=== PATIENT | female | born 1955 | race Caucasian/White ===

== ENCOUNTER 2017-09-12 20:31 | Inpatient (IN) | payer SELFPAY ==
[2017-09-12] MEDS ORDERED: NS 0.9% 1000 ML*IV.FLUID IV ONE (21:29)
[2017-09-12] MEDS ORDERED: methylPREDNISolone 125 MG* 2 ML VIAL IV ONE (21:39)
[2017-09-12] MEDS ORDERED: diPHENhydraMINE IV* 50 MG/ML 1 ml VIAL (BENADRYL) IV ONE (21:39)
[2017-09-12] MEDS ORDERED: Acetaminophen TAB* 325 MG PO ONE (21:39)
--- NOTE | 2017-09-12 21:49 | RAD ---
INDICATION: Shortness of breath. COMPARISON: There is an is made with a prior study from May 11, 2003. TECHNIQUE: A portable view of the chest was obtained. FINDINGS: Cardiac and mediastinal contours appear to be within normal limits. The lungs are clear. No pleural effusion is seen. IMPRESSION: NO EVIDENCE FOR ACUTE DISEASE.
[2017-09-12] MEDS ORDERED: Vancomycin(*) 1,000 MG in NS 0.9% 250 ML* 250 ML IVPB ONE (22:13)
[2017-09-12] MEDS ORDERED: Piperacillin/Tazobac ADVAN(*) 3.375 GM in NS 0.9% 100 ML* 100 ML IVPB ONE (22:13)
[2017-09-12 22:30] LABS: INR 1.07 (0.77-1.02)
[2017-09-12 23:58] LABS: ABS Basophils 0.1 10^3/ul (0-0.2); ABS Eosinophils 0.2 10^3/ul (0-0.6); ABS Monocytes 0.5 10^3/ul (0-0.8); ABS Nucleated RBC 0 10^3/ul; Eosinophil % 1.9 % (0-6); Hematocrit 33 % (35-47); Hemoglobin 11.4 g/dl (12.0-16.0); Lymphocyte % 11.4 % (25-47); Mean Corpuscular HGB Conc 34 g/dl (31-36); Mean Corpuscular Hemoglobin 40 pg (27-31); Mean Corpuscular Volume 115 fL (80-97); Mean Platelet Volume 10 um3 (7.4-10.4); Nucleated Red Blood Cells % 0.1; Platelet Count 163 10^3/ul (150-450); Red Blood Count 2.88 10^6/ul (4.0-5.4); Red Cell Distribution Width 13 % (10.5-15); White Blood Count 8.8 10^3/ul (3.5-10.8)
[2017-09-13] MEDS ORDERED: HYDROmorphone INJ* 2 MG/ML CARPUJECT SYRINGE IV SLOW PU ONE (00:04)
[2017-09-13] MEDS ORDERED: Ondansetron INJ* 2 MG/ML VIAL IV ONE (00:05)
--- NOTE | 2017-09-13 00:09 | ED ---
Shadi Mejía Abhishek, scribed for Demarcus Hankins MD on 09/12/17 at 2349 . Skin Complaint - HPI Summary HPI Summary: The pt is a 62 y/o female with a chief complaint of a rash since two weeks ago. The rash is described to be pruritic and erythematous as well as painful. Pt arrived to the [facility] via ambulance. The location of the rash is diffuse in mulitple areas in the body and the pt has not seen a doctor in those 2 weeks. Pt reports of SOB, intermittent fevers, chills, diaphoresis, weakness and hair loss. Pertinent PMHx includes Psoriasis. The patient rates the pain 7/10 in severity. Symptoms aggravated by nothing. Symptoms alleviated by nothing. Pt denies sores in the mouth. - History of Current Complaint Chief Complaint: EDShortnessOfBreath Time Seen by Provider: 09/12/17 21:01 Stated Complaint: SOB/BACK PAIN Hx Obtained From: Patient Onset/Duration: Started Weeks Ago - 2 weeks ago, Still Present Timing: Constant Onset Severity: Moderate Current Severity: Moderate Pain Intensity: 7 Pain Scale Used: 0-10 Numeric Skin Location: Diffuse Aggravating Symptom(s): Nothing Alleviating Symptom(s): Nothing Associated Signs & Symptoms: Diaphoresis, Weakness, Fever, Chills, Rash - pruritic, redness, and painful - Allergy/Home Medications Allergies/Adverse Reactions: Allergies Allergy/AdvReac Type Severity Reaction Status Date / Time No Known Allergies Allergy Verified 06/19/16 12:55 PMH/Surg Hx/FS Hx/Imm Hx Endocrine/Hematology History: Denies: Hx Diabetes, Hx Thyroid Disease Cardiovascular History: Denies: Hx Hypertension Respiratory History: Denies: Hx Asthma, Hx Chronic Obstructive Pulmonary Disease (COPD) GI History: Denies: Hx Ulcer Infectious Disease History: No Infectious Disease History: Denies: Hx Hepatitis, Hx Human Immunodeficiency Virus (HIV), Traveled Outside the [place] in Last 30 Days - Family History Known Family History: Positive: Cardiac Disease - [place] - father, Other - [place] - mother - Social History Alcohol Use: Daily Alcohol Amount: wine/beer Substance Use Type: Reports: None Smoking Status (MU): Former Smoker Review of Systems Positive: Fever, Chills, Skin Diaphoresis Eyes: Negative ENT: Negative Cardiovascular: Negative Positive: Shortness Of Breath Gastrointestinal: Negative Genitourinary: Negative Musculoskeletal: Negative Skin: Other - Negative sores in the mouth Positive: Rash - pruritic, erythematous, and painful, Other - Hair loss Neurological: Negative Psychological: Normal All Other Systems Reviewed And Are Negative: Yes Physical Exam - Summary Physical Exam Summary: VITAL SIGNS: Reviewed. GENERAL: ~Patient is a well-developed and nourished (FEMALE) who is lying comfortable in the stretcher. Patient is not in any acute respiratory distress. HEAD AND FACE: No signs of trauma. No ecchymosis, hematomas or skull depressions. No sinus tenderness. EYES: PERRLA, EOMI x 2, No injected conjunctiva, no nystagmus. EARS: Hearing grossly intact. Ear canals and tympanic membranes are within normal limits. MOUTH: Oropharynx within normal limits. NECK: Supple, trachea is midline, no adenopathy, no JVD, no carotid bruit, no c- spine tenderness, neck with full ROM. CHEST: Symmetric, n SKIN: Pt has diffuse intense macular rash all over her body from the neck to the ankles Back and front Which his mildly tender and warm LUNGS: Clear to auscultation bilaterally. No wheezing or crackles. CVS: Regular rate and rhythm, S1 and S2 present, no murmurs or gallops appreciated. ABDOMEN: Soft, non-tender. No signs of distention. No rebound no guarding, and no masses palpated. Bowel sounds are normal. EXTREMITIES: FROM in all major joints, no edema, no cyanosis or clubbing. NEURO: Alert and oriented x 3. No acute neurological deficits. Speech is normal and follows commands. Triage Information Reviewed: Yes Vital Signs On Initial Exam: Initial Vitals Temp Pulse Resp BP Pulse Ox 99.9 F 96 20 157/81 99 09/12/17 20:45 09/12/17 20:45 09/12/17 20:45 09/12/17 20:45 09/12/17 20:45 Vital Signs Reviewed: Yes Diagnostics - Vital Signs Vital Signs Temp Pulse Resp BP Pulse Ox 09/12/17 22:20 98 09/12/17 20:45 99.9 F 96 20 157/81 99 - Laboratory Lab Results: Lab Results 09/12/17 09/12/17 09/12/17 Range/Units 22:00 22:00 22:00 INR (Anticoag Therapy) 1.07 H (0.77-1.02) APTT 33.6 (26.0-36.3) seconds Sodium 132 L (133-145) mmol/L Potassium 3.4 L (3.5-5.0) mmol/L Chloride 99 L (101-111) mmol/L Carbon Dioxide 20 L (22-32) mmol/L Anion Gap 13 H (2-11) mmol/L BUN 4 L (6-24) mg/dL Creatinine 0.39 L (0.51-0.95) mg/dL Est GFR ( Amer) 213.5 (>60) Est GFR (Non-Af Amer) 166.0 (>60) BUN/Creatinine Ratio 10.3 (8-20) Glucose 90 (70-100) mg/dL Lactic Acid 4.0 H* (0.5-2.0) mmol/L Calcium 8.4 L (8.6-10.3) mg/dL Total Bilirubin 2.00 H (0.2-1.0) mg/dL AST 58 H (13-39) U/L ALT 26 (7-52) U/L Alkaline Phosphatase 92 (34-104) U/L Troponin I 0.01 (<0.04) ng/mL C-Reactive Protein 76.78 H (< 5.00) mg/L Total Protein 6.1 L (6.4-8.9) g/dL Albumin 3.2 (3.2-5.2) g/dL Globulin 2.9 (2-4) g/dL Albumin/Globulin Ratio 1.1 (1-3) Influenza A (Rapid) (Negative) Influenza B (Rapid) (Negative) 09/12/17 Range/Units 22:06 INR (Anticoag Therapy) (0.77-1.02) APTT (26.0-36.3) seconds Sodium (133-145) mmol/L Potassium (3.5-5.0) mmol/L Chloride (101-111) mmol/L Carbon Dioxide (22-32) mmol/L Anion Gap (2-11) mmol/L BUN (6-24) mg/dL Creatinine (0.51-0.95) mg/dL Est GFR ( Amer) (>60) Est GFR (Non-Af Amer) (>60) BUN/Creatinine Ratio (8-20) Glucose (70-100) mg/dL Lactic Acid (0.5-2.0) mmol/L Calcium (8.6-10.3) mg/dL Total Bilirubin (0.2-1.0) mg/dL AST (13-39) U/L ALT (7-52) U/L Alkaline Phosphatase (34-104) U/L Troponin I (<0.04) ng/mL C-Reactive Protein (< 5.00) mg/L Total Protein (6.4-8.9) g/dL Albumin (3.2-5.2) g/dL Globulin (2-4) g/dL Albumin/Globulin Ratio (1-3) Influenza A (Rapid) Negative (Negative) Influenza B (Rapid) Negative (Negative) Result Diagrams: 09/12/17 23:45 09/12/17 22:00 Lab Statement: Any lab studies that have been ordered have been reviewed, and results considered in the medical decision making process. - Radiology Chest X-ray Radiology Interpretation Completed By: Radiologist - CXR reveals, per radiologist, NO EVIDENCE FOR ACUTE DISEASE. ED physician has reviewed this radiology report and agrees. Course/Dx - Course Course Of Treatment: The pt is a 62 y/o female with a c/o of SOB and a rash since two weeks. The rash is diffuse all over the body from head to toe and is descirbed to be pruritic, eryhtematous, and painful. We were unable to add a manager fitness because of skin sensitivity. Pt also denies of sores in her mouth. [facility] be admitted to the [facility]. We discussed pt care with Dr. Cerna. The dx will be severe psoriasis. We also consulted Dr. Mckeon about the pt's skin symptoms and she will see the pt tomorrow. - Diagnoses Provider Diagnoses: Psoriasis - Physician Notifications Discussed Care Of Patient With: Brennan Cerna - We discussed pt care Time Discussed With Above Provider: 00:05 Instructed by Provider To: Admit As Inpatient Discharge - Discharge Plan Condition: Stable Disposition: ADMITTED TO [facility] Referrals: No Primary Care Phys,NOPCP [Primary Care Provider] - The documentation as recorded by the Shadi jenkins Abhishek accurately reflects the service I personally performed and the decisions made by me, Demarcus Hankins, MD.
[2017-09-13] MEDS ORDERED: Albuterol 2.5 MG/3 ML NEB.SOL* (0.083%) INH PRN (01:56)
[2017-09-13] MEDS ORDERED: Acetaminophen TAB* 325 MG PO PRN (01:56)
[2017-09-13] MEDS ORDERED: traMADol TAB* 50 MG PO PRN (01:56)
[2017-09-13] MEDS ORDERED: Ondansetron INJ* 2 MG/ML VIAL IV PRN (01:56)
[2017-09-13] MEDS ORDERED: NS 0.9% 1000 ML* 1,000 ML IV SCH (02:00)
--- NOTE | 2017-09-13 04:31 | HP ---
H&P (Free Text) History and Physical: PCP: none Dermatology: Akilah Mckeon MD Date/Time: 09/13/2017 0045 CC: rash HPI: Mrs Dupont is a 62YO female Hx psoriasis who began having a flare of psoriasis 2 weeks ago which has spread to encompass nearly 100% of her body surface sparing the face, palms, & soles. This has been associated with F/C, sweats, N/V without black/bloody content, diarrhea which has occasionally been black, but no chest pain, SOB palpitations, cough, congestion, sore throat, earache, or other issues. She has not been ill recently nor has she had any change in medications. ED was able to contact her complex director, Akilah Mckeon MD who agreed to evaluate her in the AM. Mrs Dupont reports using topical triamcinolone without relief. 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 [employer]; full code status FamHx: Mother: passed in her 70s 2nd traumatic ICH with breast & ovarian CA; Father: passed at 80 2nd CAD/RI ROS: as above, otherwise reviewed and all were negative vitals: Vital Signs Temp 36.4 C 09/13/17 01:55 Pulse 103 09/13/17 01:56 Resp 20 09/13/17 01:55 BP 133/69 09/13/17 01:56 Pulse Ox 97 09/13/17 01:56 Intake & Output 09/12/17 09/12/17 09/13/17 11:59 23:59 11:59 Intake Total 100 Balance 100 Weight 56.699 kg 56.699 kg Intake: IV Fluids 100 Constitutional: NAD, normally developed, well-nourished white female HEENM: atraumatic; sclera/conjunctiva: anicteric/clear; hearing: clinically intact; oropharynx: clear, mucosa moist Neck: soft tissue: no nuchal rigidity; thyroid: normal Pulmonary: clear to auscultation bilaterally, good aeration, no accessory muscle use CV: RR/RR, normal S1S2, no carotid bruit, no jugular venous distention, 2+ B DP/ PT, no edema Abdominal: soft, non-distended, non-tender, no rebound/guarding/rigidity, normoactive bowel sounds, no hepatosplenomegaly or masses, no costovertebral angle tenderness Musculoskeletal: general: grossly, no overt deformities noted Integumental: generalized bright erythematous eruption sparing the face, palms, & soles punctuated by islands of hyperkeratosis; no oral/mucosal lesions Genitourinary: exam deferred to ED MD who reports no mucosal lesions Psychiatric orientation: AA&O to PPS affect: calm mood: cooperative eye contact: fair content: reliable responses: timely insight: good Testing: Lab Results 09/12/17 09/12/17 09/12/17 Range/Units 22:00 22:00 22:00 WBC (3.5-10.8) 10^3/ul RBC (4.0-5.4) 10^6/ul Hgb (12.0-16.0) g/dl Hct (35-47) % MCV (80-97) fL MCH (27-31) pg MCHC (31-36) g/dl RDW (10.5-15) % Plt Count (150-450) 10^3/ul MPV (7.4-10.4) um3 Neut % (Auto) (38-83) % Lymph % (Auto) (25-47) % [place] % (Auto) (0-7) % Eos % (Auto) (0-6) % Baso % (Auto) (0-2) % Absolute Neuts (auto) (1.5-7.7) 10^3/ul Absolute Lymphs (auto) (1.0-4.8) 10^3/ul Absolute Monos (auto) (0-0.8) 10^3/ul Absolute Eos (auto) (0-0.6) 10^3/ul Absolute Basos (auto) (0-0.2) 10^3/ul Absolute Nucleated RBC 10^3/ul Nucleated RBC % ESR (0-30) mm/Hr INR (Anticoag Therapy) 1.07 H (0.77-1.02) APTT 33.6 (26.0-36.3) seconds Sodium 132 L (133-145) mmol/L Potassium 3.4 L (3.5-5.0) mmol/L Chloride 99 L (101-111) mmol/L Carbon Dioxide 20 L (22-32) mmol/L Anion Gap 13 H (2-11) mmol/L BUN 4 L (6-24) mg/dL Creatinine 0.39 L (0.51-0.95) mg/dL Est GFR ( Amer) 213.5 (>60) Est GFR (Non-Af Amer) 166.0 (>60) BUN/Creatinine Ratio 10.3 (8-20) Glucose 90 (70-100) mg/dL Lactic Acid 4.0 H* (0.5-2.0) mmol/L Calcium 8.4 L (8.6-10.3) mg/dL Total Bilirubin 2.00 H (0.2-1.0) mg/dL AST 58 H (13-39) U/L ALT 26 (7-52) U/L Alkaline Phosphatase 92 (34-104) U/L Troponin I 0.01 (<0.04) ng/mL C-Reactive Protein 76.78 H (< 5.00) mg/L Total Protein 6.1 L (6.4-8.9) g/dL Albumin 3.2 (3.2-5.2) g/dL Globulin 2.9 (2-4) g/dL Albumin/Globulin Ratio 1.1 (1-3) Influenza A (Rapid) (Negative) Influenza B (Rapid) (Negative) 09/12/17 09/12/17 09/13/17 Range/Units 22:06 23:45 01:15 WBC 8.8 (3.5-10.8) 10^3/ul RBC 2.88 L (4.0-5.4) 10^6/ul Hgb 11.4 L (12.0-16.0) g/dl Hct 33 L (35-47) % MCV 115 H (80-97) fL MCH 40 H (27-31) pg MCHC 34 (31-36) g/dl RDW 13 (10.5-15) % Plt Count 163 (150-450) 10^3/ul MPV 10 (7.4-10.4) um3 Neut % (Auto) 79.8 (38-83) % Lymph % (Auto) 11.4 L (25-47) % [place] % (Auto) 6.2 (0-7) % Eos % (Auto) 1.9 (0-6) % Baso % (Auto) 0.7 (0-2) % Absolute Neuts (auto) 7.0 (1.5-7.7) 10^3/ul Absolute Lymphs (auto) 1.0 (1.0-4.8) 10^3/ul Absolute Monos (auto) 0.5 (0-0.8) 10^3/ul Absolute Eos (auto) 0.2 (0-0.6) 10^3/ul Absolute Basos (auto) 0.1 (0-0.2) 10^3/ul Absolute Nucleated RBC 0 10^3/ul Nucleated RBC % 0.1 ESR 32 H (0-30) mm/Hr INR (Anticoag Therapy) (0.77-1.02) APTT (26.0-36.3) seconds Sodium (133-145) mmol/L Potassium (3.5-5.0) mmol/L Chloride (101-111) mmol/L Carbon Dioxide (22-32) mmol/L Anion Gap (2-11) mmol/L BUN (6-24) mg/dL Creatinine (0.51-0.95) mg/dL Est GFR ( Amer) (>60) Est GFR (Non-Af Amer) (>60) BUN/Creatinine Ratio (8-20) Glucose (70-100) mg/dL Lactic Acid 2.8 H* (0.5-2.0) mmol/L Calcium (8.6-10.3) mg/dL Total Bilirubin (0.2-1.0) mg/dL AST (13-39) U/L ALT (7-52) U/L Alkaline Phosphatase (34-104) U/L Troponin I (<0.04) ng/mL C-Reactive Protein (< 5.00) mg/L Total Protein (6.4-8.9) g/dL Albumin (3.2-5.2) g/dL Globulin (2-4) g/dL Albumin/Globulin Ratio (1-3) Influenza A (Rapid) Negative (Negative) Influenza B (Rapid) Negative (Negative) CXR, personally reviewed: IMPRESSION: NO EVIDENCE FOR ACUTE DISEASE. Impression: 62F presenting with a severe flare of psoriasis ? etiology DIAGNOSIS & PLAN Primary severe flare of psoriasis ? etiology : recheck labs in AM : Akilah Mckeon MD dermatology consulted by ED, agreed to evaluate in AM : given vancomycin & piperacillin/tazobactam in ED, hold further ABX at this time : given methylprednisolone 125mg IV in ED, defer further steroids to dermatology : defer initiation of methotrexate, cyclosporin, apremilast, or biologic agent to dermatology upon confirmation of DX : trend WBC & temperature curves : check HIV status : supportive care recent black stools : check fecal occult blood Admission Rational: inpatient for severe dermatologic eruption not anticipated to be adequately evaluated/improved w/i 48h to allow for discharge DVTp: SCDs, no anticoagulation give HX recent black stools Code Status: full HCP:
[2017-09-13 05:38] LABS: Urine Appearance Cloudy; Urine Blood 1+ (Negative); Urine Color Amber; Urine Ketones Trace (Negative); Urine Protein 1+(30 mg/dL) (Negative); Urine Specific Gravity 1.023 (1.010-1.030); Urine Urobilinogen Negative (Negative)
[2017-09-13 06:13] LABS: ABS Basophils 0 10^3/ul (0-0.2); ABS Eosinophils 0 10^3/ul (0-0.6); ABS Lymphocytes 0.4 10^3/ul (1.0-4.8); ABS Monocytes 0.1 10^3/ul (0-0.8); ABS Neutrophils 6.3 10^3/ul (1.5-7.7); ABS Nucleated RBC 0 10^3/ul; Eosinophil % 0 % (0-6); Hematocrit 35 % (35-47); Hemoglobin 12.1 g/dl (12.0-16.0); Lymphocyte % 5.2 % (25-47); Mean Corpuscular HGB Conc 35 g/dl (31-36); Mean Corpuscular Hemoglobin 40 pg (27-31); Mean Corpuscular Volume 115 fL (80-97); Mean Platelet Volume 10 um3 (7.4-10.4); Nucleated Red Blood Cells % 0; Platelet Count 124 10^3/ul (150-450); Red Blood Count 3.05 10^6/ul (4.0-5.4); Red Cell Distribution Width 13 % (10.5-15); White Blood Count 6.7 10^3/ul (3.5-10.8)
[2017-09-13] MEDS: Omeprazole CAP* 20 MG PO SCH (06:25)
[2017-09-13 06:26] LABS: EGFR Non-African American 144.4 (>60)
[2017-09-13] MEDS ORDERED: Pneumococcal *Vac Polyvalent 0.5 ML VIAL IM ONE (09:00)
[2017-09-13] MEDS ORDERED: Influenza VAC *QUAD* 2017-18* 0.5 ML SYRINGE IM ONE (09:00)
[2017-09-13] MEDS ORDERED: cefTRIAXone(*) 1 GM in NS 0.9% 50 ML* 50 ML IVPB SCH (11:00)
[2017-09-13] MEDS: cefTRIAXone 1000 MG SYRINGE IVPB Q24H IVPB SCH ×2 (11:39)
--- NOTE | 2017-09-13 13:01 | ECHO ---
Patient: JUDD HE [facility] Rec#: [id number] : 1955 Date: 09/13/2017 Age: 62y Height: 157.5 cm / 62.0 in Weight: 61.2 kg / 134.9 lbs Sex: F BSA: 1.6 Room#: [facility] Admit Date#: 09/13/2017 Type: Inpatient Referring: Lino Henry Reading: Luis Alfredo Draper MD Sanitation Engineer: Beverley Duncan RN RDCS Transthoracic Echocardiogram Indication: Shortness of breath BP: 139/70 HR: 95 Rhythm: NSR Findings History: Former smoker, psoriasis Technical Comments: The study quality is fair. The study is technically limited due to the patient's smoking history. Completed at 1245. Left Ventricle: The left ventricular chamber size is normal. There is no left ventricular hypertrophy. Global left ventricular wall motion and contractility are within normal limits. The left ventricle appears hyperdynamic.Visually estimated LVEF is greater than 70 %. The assessment of diastolic function is non-diagnostic. Left Atrium: The left atrial chamber size is normal. Right Ventricle: The right ventricular chamber size and systolic function are within normal limits. Right Atrium: The right atrial cavity size is normal. Aortic Valve: The aortic valve is trileaflet. The aortic valve leaflets are mildly thickened. There is no evidence of aortic regurgitation. There is no evidence of aortic stenosis. Mitral Valve: The mitral valve leaflets are mildly thickened. There is a trace of mitral regurgitation. There is no evidence of mitral stenosis. Tricuspid Valve: The tricuspid valve leaflets are normal. There is trace tricuspid regurgitation. There is evidence of borderline pulmonary hypertension. There is no tricuspid stenosis. Pulmonic Valve: The pulmonic valve appears normal. There is a trace pulmonic regurgitation. There is no pulmonic stenosis. Pericardium: A trivial pericardial effusion is visualized. A pericardial fat pad is visualized. Aorta: There is mild dilatation of the ascending aorta. There is no dilatation of the aortic arch. There is no dilation of the aortic root. Pulmonary Artery: The main pulmonary artery appears normal. Venous: The venous system is not well visualized. The inferior vena cava is not visualized. Conclusions Global left ventricular wall motion and contractility are within normal limits. The left ventricle appears hyperdynamic. Visually estimated LVEF is greater than 70 %. No significant valvular disease: There is a trace of mitral regurgitation. There is trace tricuspid regurgitation. There is a trace pulmonic regurgitation. There is mild dilatation of the ascending aorta. No reports of prior studies are offered for comparison. Measurements Name Value Normal Range RVDdMajor (2D) 3.2 cm (2.2 - 4.4) RAd ISD 4CH 4.9 cm (3.4 - 4.9) RA (A4C)W 3.4 cm (2.9 - 4.6) IVSd (2D) 0.9 cm (0.6 - 1) LVPWd (2D) 1 cm (0.6 - 1) LVIDd (2D) 4.1 cm (3.6 - 5.4) LVIDs (2D) 2.4 cm - LV FS (2D) 41 % (25 - 45) Aortic Annulus 2.2 cm (1.4 - 2.6) Ao root diameter (2D) 3.1 cm (2.1 - 3.5) Ascending Ao 3.6 cm (2.1 - 3.4) Aortic arch 2.4 cm (1.8 - 3.4) LA dimension (AP) 2D 3.5 cm (2.3 - 3.8) LAd ISD 4CH 5.3 cm (2.9 - 5.3) LA ISD 4CH W 3.8 cm (2.5 - 4.5) Name Value Normal Range LA ESV SP 4CH (A/L) 46 ml - LA ESV SP 2CH (A/L) 46 ml - LA ESV BP (A/L) 48 ml - LA ESV BP (A/L) index 29.8 ml/m2 - LA ESV SP 4CH (MOD) 43 ml - LA ESV SP 2CH (MOD) 43 ml - Name Value Normal Range MV E-wave Vmax 1.1 m/sec - MV deceleration time 219 msec - MV A-wave Vmax 1.2 m/sec - MV E:A ratio 0.9 ratio - LV septal e' Vmax 0.07 m/sec - LV lateral e' Vmax 0.07 m/sec - LV E:e' septal ratio 15.7 ratio - LV E:e' lateral ratio 15.7 ratio - Name Value Normal Range AV Vmax 1.7 m/sec - AV VTI 37.6 cm - AV peak gradient 11 mmHg - AV mean gradient 6.4 mmHg - LVOT Vmax 1.7 m/sec - LVOT VTI 34.9 cm - LVOT peak gradient 11 mmHg - LVOT mean gradient 6.4 mmHg - JOHN Vmax 0.72 m/sec - Name Value Normal Range TR Vmax 2.6 m/sec - TR peak gradient 27 mmHg - RAP 8 mmHg - RVSP 35 mmHg - Name Value Normal Range PV Vmax 1.3 m/sec -
--- NOTE | 2017-09-13 14:39 | PN ---
Hospitalist Progress Note Date of Service: 09/13/17 Pt seen and examined. Has been subjectively SOB with new swelling in legs and bloating in stomach. scleral icterus. erythodermic psoriasis. Evidence of UTI started on cftx (s/p vanc zosyn in ED. Dermatology to see soon. BNP elevated to 375. ECHO ordered, EF 70% hyperdynamic. Hx of hepatic steatosis, drinks 3 wine nightly. TBili 2.0. AST 58. Liver US ordered. LFTs again in AM.
--- NOTE | 2017-09-13 18:07 | RAD ---
INDICATION: Hepatic steatosis, assess for ascites. COMPARISON: Comparison is made with a prior study from June 19, 2016. TECHNIQUE: Multiple real-time images of the right upper quadrant were obtained. FINDINGS: No gallstones are seen. There is mild gallbladder wall thickening measuring 3 mm likely secondary to adjacent ascites. No intra or extrahepatic ductal distention is present. The common bile duct measured 0.2 cm in diameter. The liver is normal in size and increased in echogenicity without focal abnormality. The pancreas is partially obscured by overlying bowel gas. The right kidney is normal in size without evidence for hydronephrosis. There is a moderate amount of ascites seen in all 4 quadrants. IMPRESSION: 1. MODERATE AMOUNT OF ASCITES. 2. THE LIVER IS INCREASED IN ECHOGENICITY CONSISTENT WITH DIFFUSE HEPATOCELLULAR DISEASE MOST LIKELY HEPATIC STEATOSIS. THIS COULD BE FURTHER EVALUATED WITH A NONCONTRAST CT IF CLINICALLY NEEDED.
[2017-09-13] MEDS: Triamcinolone 0.025% OINT * 15 GM TUBE TOPICAL SCH (19:27)
[2017-09-13] MEDS: Spironolactone TAB* 25 MG PO SCH (19:30)
[2017-09-13] MEDS: Furosemide TAB* 20 MG PO SCH (19:30)
[2017-09-13] MEDS: CMCS: Melatonin (NF) 3 MG TAB PO PRN (23:41)
[2017-09-14] MEDS ORDERED: Heparin VIAL(*) 5000 UNITS/ML VIAL (FIVE THOUSAND) SUBCUT SCH (06:00)
[2017-09-14] MEDS: Omeprazole CAP* 20 MG PO SCH (06:22)
[2017-09-14 07:36] LABS: ABS Basophils 0 10^3/ul (0-0.2); ABS Eosinophils 0 10^3/ul (0-0.6); ABS Lymphocytes 1.6 10^3/ul (1.0-4.8); ABS Monocytes 1.4 10^3/ul (0-0.8); ABS Neutrophils 9.2 10^3/ul (1.5-7.7); ABS Nucleated RBC 0 10^3/ul; Eosinophil % 0 % (0-6); Hematocrit 34 % (35-47); Hemoglobin 11.5 g/dl (12.0-16.0); Lymphocyte % 13.2 % (25-47); Mean Corpuscular HGB Conc 34 g/dl (31-36); Mean Corpuscular Hemoglobin 40 pg (27-31); Mean Corpuscular Volume 116 fL (80-97); Mean Platelet Volume 10 um3 (7.4-10.4); Nucleated Red Blood Cells % 0; Platelet Count 106 10^3/ul (150-450); Red Blood Count 2.91 10^6/ul (4.0-5.4); Red Cell Distribution Width 13 % (10.5-15); White Blood Count 12.3 10^3/ul (3.5-10.8)
[2017-09-14 07:46] LABS: EGFR Non-African American 121.8 (>60)
[2017-09-14] MEDS ORDERED: Potassium Chlor TAB* 20 MEQ TAB.ER PO ONE (08:41)
[2017-09-14] MEDS: Spironolactone TAB* 25 MG PO SCH (09:04)
[2017-09-14] MEDS: Furosemide TAB* 20 MG PO SCH (09:04)
[2017-09-14] MEDS: Triamcinolone 0.025% OINT * 15 GM TUBE TOPICAL SCH (11:26)
[2017-09-14] MEDS: cefTRIAXone 1000 MG SYRINGE IVPB Q24H IVPB SCH ×2 (11:52)
--- NOTE | 2017-09-14 13:01 | PN ---
Subjective Date of Service: 09/14/17 Interval History: Pt is feeling so much better today. She states her breathing is much better. She feels less edematous. She is interested in going home possibly tomorrow AM. Objective Active Medications: Acetaminophen (Tylenol Tab*) 650 mg PO Q6H PRN PRN Reason: FEVER/PAIN Albuterol (Ventolin 2.5 Mg/3 Ml Neb.Aurora*) 2.5 mg INH Q2H PRN PRN Reason: SOB/WHEEZING Furosemide (Lasix Tab*) 20 mg PO DAILY [facility] Last Admin: 09/14/17 09:04 Dose: 20 mg Ceftriaxone Sodium 1,000 mg/ (Sterile Water) 10 mls @ 40 mls/hr IVPB Q24H [facility] Last Admin: 09/14/17 11:52 Dose: 40 mls/hr Melatonin (Melatonin (Nf)) 3 mg PO BEDTIME PRN; Protocol PRN Reason: Sleep Last Admin: 09/13/17 23:41 Dose: 3 mg Omeprazole (Prilosec Cap*) 20 mg PO DAILY@0600 [facility] Last Admin: 09/14/17 06:22 Dose: 20 mg Ondansetron HCl (Zofran Inj*) 4 mg IV Q6H PRN PRN Reason: NAUSEA Spironolactone (Aldactone Tab*) 50 mg PO DAILY [facility] Last Admin: 09/14/17 09:04 Dose: 50 mg Tramadol HCl (Ultram*) 50 mg PO Q6H PRN PRN Reason: PAIN Triamcinolone Acetonide (Triamcinolone 0.025% Oint *) 1 applic TOPICAL BID [facility] Last Admin: 09/14/17 11:26 Dose: 1 applic Vital Signs - 8 hr 09/14/17 09/14/17 09/14/17 07:41 07:45 08:00 Temperature 97.9 F Pulse Rate 100 Respiratory 18 18 Rate Blood Pressure 124/63 (mmHg) O2 Sat by Pulse 98 98 Oximetry Oxygen Devices in Use Now: None Appearance: Middle aged female sitting up in bed, NAD Eyes: No Scleral Icterus Ears/Nose/Mouth/Throat: Mucous Membranes Moist Respiratory: Symmetrical Chest Expansion and Respiratory Effort, Clear to Auscultation Cardiovascular: NL Sounds; No Murmurs; No JVD, RRR, No Edema Abdominal: NL Sounds; No Tenderness; No Distention Extremities: No Clubbing, Cyanosis Skin: No Nodules or Sclerosis, - - diffuse psoriasis Neurological: Alert and Oriented x 3 Result Diagrams: 09/14/17 07:13 09/14/17 07:13 Additional Lab and Data: Lab Results 09/12/17 09/12/17 09/12/17 Range/Units 22:00 22:00 22:00 INR (Anticoag Therapy) 1.07 H (0.77-1.02) APTT 33.6 (26.0-36.3) seconds Sodium 132 L (133-145) mmol/L Potassium 3.4 L (3.5-5.0) mmol/L Chloride 99 L (101-111) mmol/L Carbon Dioxide 20 L (22-32) mmol/L Anion Gap 13 H (2-11) mmol/L BUN 4 L (6-24) mg/dL Creatinine 0.39 L (0.51-0.95) mg/dL Est GFR ( Amer) 213.5 (>60) Est GFR (Non-Af Amer) 166.0 (>60) BUN/Creatinine Ratio 10.3 (8-20) Glucose 90 (70-100) mg/dL Lactic Acid 4.0 H* (0.5-2.0) mmol/L Calcium 8.4 L (8.6-10.3) mg/dL Total Bilirubin 2.00 H (0.2-1.0) mg/dL AST 58 H (13-39) U/L ALT 26 (7-52) U/L Alkaline Phosphatase 92 (34-104) U/L Troponin I 0.01 (<0.04) ng/mL C-Reactive Protein 76.78 H (< 5.00) mg/L Total Protein 6.1 L (6.4-8.9) g/dL Albumin 3.2 (3.2-5.2) g/dL Globulin 2.9 (2-4) g/dL Albumin/Globulin Ratio 1.1 (1-3) Influenza A (Rapid) (Negative) Influenza B (Rapid) (Negative) 09/12/17 Range/Units 22:06 INR (Anticoag Therapy) (0.77-1.02) APTT (26.0-36.3) seconds Sodium (133-145) mmol/L Potassium (3.5-5.0) mmol/L Chloride (101-111) mmol/L Carbon Dioxide (22-32) mmol/L Anion Gap (2-11) mmol/L BUN (6-24) mg/dL Creatinine (0.51-0.95) mg/dL Est GFR ( Amer) (>60) Est GFR (Non-Af Amer) (>60) BUN/Creatinine Ratio (8-20) Glucose (70-100) mg/dL Lactic Acid (0.5-2.0) mmol/L Calcium (8.6-10.3) mg/dL Total Bilirubin (0.2-1.0) mg/dL AST (13-39) U/L ALT (7-52) U/L Alkaline Phosphatase (34-104) U/L Troponin I (<0.04) ng/mL C-Reactive Protein (< 5.00) mg/L Total Protein (6.4-8.9) g/dL Albumin (3.2-5.2) g/dL Globulin (2-4) g/dL Albumin/Globulin Ratio (1-3) Influenza A (Rapid) Negative (Negative) Influenza B (Rapid) Negative (Negative) Microbiology and Other Data: Microbiology 09/13/17 04:45 Urine Culture - Final Urine 09/13/17 08:15 Stool Occult Blood (JUANCARLOS) - Final Stool Assess/Plan/Problems-Billing Ms Dupont is a 62 yo F who has a h/o psoriasis who presented to the ER with c/o severe SOB and edema and was found to have an extensive psoriasis flare and was admitted for evaluation of her SOB/edema and treatment of the psoriasis. - Patient Problems (1) SOB (shortness of breath) Current Visit: Yes Status: Acute Code(s): R06.02 - SHORTNESS OF BREATH SNOMED Code(s): 921779670 Comment: The patient states her SOB and edema is better today. She was started on lasix 20mg daily. She states she has not urinated much more than normal however. Her echo shows a very good EF and normal valve fxn. Will stop diuretic now. (2) Psoriasis Current Visit: Yes Status: Acute Code(s): L40.9 - PSORIASIS, UNSPECIFIED SNOMED Code(s): 0652570 Comment: Continue triamcinolone ointment application and cover with plastic wrap. Will discuss with Dr. Nieto about how long to leave the wraps on and if triamcinolone cream can be used in place of the ointment. Pt believes the psoriasis began to flare because of a recent viral illness. (3) Elevated LFTs Current Visit: Yes Status: Acute Code(s): R79.89 - OTHER SPECIFIED ABNORMAL FINDINGS OF BLOOD CHEMISTRY SNOMED Code(s): 186572383 Comment: LIkely secondary to EtOH use. Her liver US shows steatosis. Bilirubin has trended down today. No further work up. Pt states she is going to stop drinking EtOH. (4) DVT prophylaxis Current Visit: Yes Status: Acute Code(s): JOR9143 - SNOMED Code(s): 606583947 Comment: none secondary to recent black stools-stool occult blood negative- will start lovenox (5) Full code status Current Visit: Yes Status: Acute Code(s): Z78.9 - OTHER SPECIFIED HEALTH STATUS SNOMED Code(s): 214502515
[2017-09-14] MEDS ORDERED: Enoxaparin(*) 40 MG/0.4 ML SYR SUBCUT SCH (14:00)
[2017-09-14] MEDS: Triamcinolone 0.5% OINT * 15 GM TUBE TOPICAL SCH (21:34)
[2017-09-14] MEDS: CMCS: Melatonin (NF) 3 MG TAB PO PRN (23:40)
[2017-09-15] MEDS: Omeprazole CAP* 20 MG PO SCH (06:06)
[2017-09-15 07:03] LABS: ABS Basophils 0 10^3/ul (0-0.2); ABS Eosinophils 0 10^3/ul (0-0.6); ABS Lymphocytes 1.4 10^3/ul (1.0-4.8); ABS Monocytes 0.9 10^3/ul (0-0.8); ABS Neutrophils 5.8 10^3/ul (1.5-7.7); ABS Nucleated RBC 0 10^3/ul; Eosinophil % 0 % (0-6); Hematocrit 35 % (35-47); Hemoglobin 12.4 g/dl (12.0-16.0); Lymphocyte % 16.9 % (25-47); Mean Corpuscular HGB Conc 35 g/dl (31-36); Mean Corpuscular Hemoglobin 40 pg (27-31); Mean Corpuscular Volume 114 fL (80-97); Mean Platelet Volume 10 um3 (7.4-10.4); Nucleated Red Blood Cells % 0.2; Platelet Count 108 10^3/ul (150-450); Red Blood Count 3.08 10^6/ul (4.0-5.4); Red Cell Distribution Width 13 % (10.5-15); White Blood Count 8.1 10^3/ul (3.5-10.8)
[2017-09-15 07:07] LABS: EGFR Non-African American 119.1 (>60)
[2017-09-15] MEDS ORDERED: Potassium Chlor TAB* 20 MEQ TAB.ER PO ONE (08:13)
--- NOTE | 2017-09-15 08:28 | PN ---
Subjective Date of Service: 09/15/17 Interval History: Pt is feeling well. She is anxious to go home. She states she thinks the swelling may have been secondary to her severe psoriasis. She has noticed dramatic improvement in her skin condition. She states she had a normal BM today -it was not black in color. Objective Active Medications: Acetaminophen (Tylenol Tab*) 650 mg PO Q6H PRN PRN Reason: FEVER/PAIN Albuterol (Ventolin 2.5 Mg/3 Ml Neb.Aurora*) 2.5 mg INH Q2H PRN PRN Reason: SOB/WHEEZING Enoxaparin Sodium (Lovenox(*)) 40 mg SUBCUT Q24H [facility] Last Admin: 09/14/17 14:11 Dose: 40 mg Furosemide (Lasix Tab*) 20 mg PO DAILY [facility] Last Admin: 09/14/17 09:04 Dose: 20 mg Ceftriaxone Sodium 1,000 mg/ (Sterile Water) 10 mls @ 40 mls/hr IVPB Q24H [facility] Last Admin: 09/14/17 11:52 Dose: 40 mls/hr Melatonin (Melatonin (Nf)) 3 mg PO BEDTIME PRN; Protocol PRN Reason: Sleep Last Admin: 09/14/17 23:40 Dose: 3 mg Omeprazole (Prilosec Cap*) 20 mg PO DAILY@0600 [facility] Last Admin: 09/15/17 06:06 Dose: 20 mg Ondansetron HCl (Zofran Inj*) 4 mg IV Q6H PRN PRN Reason: NAUSEA Spironolactone (Aldactone Tab*) 50 mg PO DAILY [facility] Last Admin: 09/14/17 09:04 Dose: 50 mg Tramadol HCl (Ultram*) 50 mg PO Q6H PRN PRN Reason: PAIN Triamcinolone Acetonide (Triamcinolone 0.5% Oint *) 1 applic TOPICAL BID [facility] Last Admin: 09/14/17 21:34 Dose: 1 applic Vital Signs - 8 hr 09/15/17 03:07 Temperature 97.8 F Pulse Rate 92 Respiratory 18 Rate Blood Pressure 135/72 (mmHg) O2 Sat by Pulse 96 Oximetry Oxygen Devices in Use Now: None Appearance: Middle aged female sitting up in bed, NAD Eyes: No Scleral Icterus Ears/Nose/Mouth/Throat: Mucous Membranes Moist Respiratory: Symmetrical Chest Expansion and Respiratory Effort, Clear to Auscultation Cardiovascular: NL Sounds; No Murmurs; No JVD, RRR, No Edema Abdominal: NL Sounds; No Tenderness; No Distention Extremities: No Clubbing, Cyanosis Skin: No Nodules or Sclerosis, - - diffuse patchy erythema, no significant scaling at this time Neurological: Alert and Oriented x 3 Result Diagrams: 09/15/17 06:38 09/15/17 06:38 Additional Lab and Data: Lab Results 09/12/17 09/12/17 09/12/17 Range/Units 22:00 22:00 22:00 INR (Anticoag Therapy) 1.07 H (0.77-1.02) APTT 33.6 (26.0-36.3) seconds Sodium 132 L (133-145) mmol/L Potassium 3.4 L (3.5-5.0) mmol/L Chloride 99 L (101-111) mmol/L Carbon Dioxide 20 L (22-32) mmol/L Anion Gap 13 H (2-11) mmol/L BUN 4 L (6-24) mg/dL Creatinine 0.39 L (0.51-0.95) mg/dL Est GFR ( Amer) 213.5 (>60) Est GFR (Non-Af Amer) 166.0 (>60) BUN/Creatinine Ratio 10.3 (8-20) Glucose 90 (70-100) mg/dL Lactic Acid 4.0 H* (0.5-2.0) mmol/L Calcium 8.4 L (8.6-10.3) mg/dL Total Bilirubin 2.00 H (0.2-1.0) mg/dL AST 58 H (13-39) U/L ALT 26 (7-52) U/L Alkaline Phosphatase 92 (34-104) U/L Troponin I 0.01 (<0.04) ng/mL C-Reactive Protein 76.78 H (< 5.00) mg/L Total Protein 6.1 L (6.4-8.9) g/dL Albumin 3.2 (3.2-5.2) g/dL Globulin 2.9 (2-4) g/dL Albumin/Globulin Ratio 1.1 (1-3) Influenza A (Rapid) (Negative) Influenza B (Rapid) (Negative) 09/12/17 Range/Units 22:06 INR (Anticoag Therapy) (0.77-1.02) APTT (26.0-36.3) seconds Sodium (133-145) mmol/L Potassium (3.5-5.0) mmol/L Chloride (101-111) mmol/L Carbon Dioxide (22-32) mmol/L Anion Gap (2-11) mmol/L BUN (6-24) mg/dL Creatinine (0.51-0.95) mg/dL Est GFR ( Amer) (>60) Est GFR (Non-Af Amer) (>60) BUN/Creatinine Ratio (8-20) Glucose (70-100) mg/dL Lactic Acid (0.5-2.0) mmol/L Calcium (8.6-10.3) mg/dL Total Bilirubin (0.2-1.0) mg/dL AST (13-39) U/L ALT (7-52) U/L Alkaline Phosphatase (34-104) U/L Troponin I (<0.04) ng/mL C-Reactive Protein (< 5.00) mg/L Total Protein (6.4-8.9) g/dL Albumin (3.2-5.2) g/dL Globulin (2-4) g/dL Albumin/Globulin Ratio (1-3) Influenza A (Rapid) Negative (Negative) Influenza B (Rapid) Negative (Negative) Microbiology and Other Data: Microbiology 09/13/17 04:45 Urine Culture - Final Urine 09/13/17 08:15 Stool Occult Blood (JUANCARLOS) - Final Stool Assess/Plan/Problems-Billing Ms Dupont is a 62 yo F who has a h/o psoriasis who presented to the ER with c/o severe SOB and edema and was found to have an extensive psoriasis flare and was admitted for evaluation of her SOB/edema and treatment of the psoriasis. - Patient Problems (1) SOB (shortness of breath) Current Visit: Yes Status: Acute Code(s): R06.02 - SHORTNESS OF BREATH SNOMED Code(s): 191532999 Comment: The patient states her SOB and edema is better today. Will not send home on lasix or spironolactone. ? if her "edema" was actually inflammation from her psoriasis. (2) Psoriasis Current Visit: Yes Status: Acute Code(s): L40.9 - PSORIASIS, UNSPECIFIED SNOMED Code(s): 4561557 Comment: Continue triamcinolone ointment application and cover with plastic wrap. Will ask that the patient get a follow up appt for this coming week to determine how long to remain on the steroid ointment. (3) Elevated LFTs Current Visit: Yes Status: Acute Code(s): R79.89 - OTHER SPECIFIED ABNORMAL FINDINGS OF BLOOD CHEMISTRY SNOMED Code(s): 054686191 Comment: Likely secondary to EtOH use. Her liver US shows steatosis. Bilirubin has trended down today. No further work up. Pt states she is going to stop drinking EtOH. (4) DVT prophylaxis Current Visit: Yes Status: Acute Code(s): KXS9509 - SNOMED Code(s): 960852363 Comment: kaveh (5) Full code status Current Visit: Yes Status: Acute Code(s): Z78.9 - OTHER SPECIFIED HEALTH STATUS SNOMED Code(s): 270461557
[2017-09-15 08:48] VITALS: BP 146/69
[2017-09-15] MEDS: Triamcinolone 0.5% OINT * 15 GM TUBE TOPICAL SCH (08:53)
[2017-09-15] MEDS: cefTRIAXone 1000 MG SYRINGE IVPB Q24H IVPB SCH ×2 (10:16)
--- NOTE | 2017-09-15 18:23 | DS ---
CC: Dr. Nieto * DISCHARGE SUMMARY: DATE OF ADMISSION: 09/13/17 DATE OF DISCHARGE: 09/15/17 PRIMARY CARE PROVIDER: None. NEUROPHYSIOLOGY TECH: Dr. Nieto. 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 DISCHARGE MEDICATIONS: 1. Triamcinolone ointment applied from the neck down twice daily with wrapping of the arms and torso for 30 minutes with Saran wrap twice daily. Also apply triamcinolone ointment 0.1% to scalp without wrap twice daily. 2. Cutar 7.5% 60 mL in a tub full of lukewarm bath water to be soaked in for 20 minutes daily. HOSPITAL COURSE: Ms. Dupont is a 62-year-old female who presented to the emergency room on 09/12/17 with complaints of rash, shortness of breath, and swelling. The patient had reported having a viral infection approximately 2 weeks prior to admission. She noted that this flared her psoriasis. She tried to use triamcinolone ointment, which did seem to improve; however, when she stopped the ointment, the psoriasis flared back up. The patient in the emergency room was found to have erythrodermic psoriasis covering approximately 95% of her body surface. She had already contacted Dr. Nieto, who kindly saw her in the hospital on the day of admission. Dr. Nieto has recommended to apply triamcinolone ointment to all affected areas of the body including the scalp, neck, arms, trunk, and legs. She is to wrap the arms and trunk in Saran wrap for 30 minutes twice daily after applying the triamcinolone. Prior to this at home, the patient should soak in lukewarm bath water with 60 mL of Cutar in the water. She will then pat mostly dry, then apply the triamcinolone ointment. It is unclear why she developed the psoriasis flare, but it is suspected that it is secondary to her recent viral illness. The patient was started on antibiotics during the course of hospitalization, though no clear infection was identified. Given the diffuse erythroderma, concern for open skin areas, she was treated with ceftriaxone while hospitalized. The patient will go out on Keflex 500 mg p.o. 3 times daily for 4 more days. The patient will need to follow up with Dr. Nieto in this coming week. Also on admission, the patient was found to have an elevated bilirubin and AST. She underwent liver ultrasound, which revealed hepatic steatosis. It was felt that this is likely secondary to her alcohol use. The patient's bilirubin did trend down almost to normal on the day prior to discharge. Her AST is also improved. At this point, the patient states that she is going to stop drinking alcohol. On admission, the patient also complained of swelling and shortness of breath. She underwent transthoracic echocardiogram given an elevated BNP, which was essentially normal. I question if her perceived edema was actually inflammation related to her severe psoriasis. The cause of her dyspnea was not clearly identified; however, has markedly improved. She did get 2 days' worth of diuretic therapy. This will not be continued on discharge. FOLLOWUP CONCERNS: The patient is being discharged home today, 09/15/17. She is to follow up with Dr. Nieto later this week. She will be contacted by the hospitalist coordinator about obtaining a primary care provider to follow with halfway. CONDITION ON DISCHARGE: Stable. DIET: Regular. TIME SPENT: 35 minutes was spent discharging this patient. [id number]/[facility] #: [id number] MICHAEL
== END 2017-09-15 11:00 | disposition home or self-care (01) | DRG 595 ==
LOC: ED 20:31 → MED 09-13 00:57
PROVIDERS: ADMIT Hospitalist; ATTEND Hospitalist
DX: L40.8 Other psoriasis (principal); K83.1 Obstruction of bile duct; N39.0 Urinary tract infection, site not specified; R94.5 Abnormal results of liver function studies; R06.00 Dyspnea, unspecified; Z79.899 Other long term (current) drug therapy; Z87.891 Personal history of nicotine dependence; Z80.41 Family history of malignant neoplasm of ovary; Z82.49 Family history of ischemic heart disease and other diseases of the circulatory system
CPT/HCPCS: 36415; 71045; 76705; 80048; 80053; 80076; 81003; 81015; 82272; 82607; 82728; 83540; 83550; 83605; 83880; 84484; 85025; 85610; 85652; 85730; 86140; 86703; 87040; 87086; 87502; 90686; 90732; 93306; 99285; A9270-GY; J0696; J1170; J1200; J1650; J2405; J2543; J2930; J3370

== ENCOUNTER 2019-01-06 11:10 | Inpatient (IN) | payer BC ==
--- NOTE | 2019-01-06 11:25 | ED ---
Skin Complaint - HPI Summary HPI Summary: This pt is a 63 y/o female presenting [facility] c/o left leg swelling, redness, and pain. Pt reports she is supposed to avoid salt but she celebrated January 02 and ate food with a lot of salt in it, i.e hot dogs, chips, and also drank beer. She noticed that over the weekend (today is Sunday) her swelling increased. Pt also notes she has abdominal distension. Pt states the wound on her left leg has been there for a couple of months now. Denies recent fevers. She has hx of psoriasis. She is followed up by her PCP, Dr. Tay, at [facility] GIM[facility], at [facility]. Pt does not follow up at the wound clinic. She no longer uses [facility]. Her medications include Hydrochlorothiazide and Ranitidine. - History of Current Complaint Chief Complaint: EDGeneral Time Seen by Provider: 01/06/19 11:19 Stated Complaint: L EXTREMITY SWELLING PER PT Hx Obtained From: Patient Onset/Duration: Started Days Ago, Still Present Skin Exposure Onset/Duration: Days Ago Timing: Lasting Days Current Severity: Mild Pain Intensity: 2 Pain Scale Used: 0-10 Numeric Skin Location: Leg - left Character: Swelling, Pain, Redness Aggravating Symptom(s): Nothing Alleviating Symptom(s): Nothing Associated Signs & Symptoms: Rash Related History: Other: - s/p eating anything with salt, hot dogs, chips, drinking beer on 01/02. - Additional Pertinent History Primary Care Physician: [id number] - Allergy/Home Medications Allergies/Adverse Reactions: Allergies Allergy/AdvReac Type Severity Reaction Status Date / Time No Known Allergies Allergy Verified 01/06/19 11:17 Home Medications: Home Medications Hydrochlorothiazide TAB* [Hydrodiuril TAB*] 25 mg PO DAILY 01/06/19 [History Confirmed 01/06/19] Ranitidine TAB (NF) [Zantac TAB (NF)] 300 mg PO DAILY 01/06/19 [History Confirmed 01/06/19] Triamcinolone 0.1% CREAM(NF) [Kenalog Cream 0.1%(NF)] 1 applic TOPICAL BID 01/06 [History Confirmed 01/06/19] PMH/Surg Hx/FS Hx/Imm Hx Previously Healthy: No - Psoriasis Endocrine/Hematology History: Denies: Hx Diabetes, Hx Thyroid Disease Cardiovascular History: Denies: Hx Hypertension Respiratory History: Denies: Hx Asthma, Hx Chronic Obstructive Pulmonary Disease (COPD) GI History: Denies: Hx Ulcer Sensory History: Reports: Hx Contacts or Glasses Denies: Hx Hearing Aid Opthamlomology History: Reports: Hx Contacts or Glasses Infectious Disease History: No Infectious Disease History: Denies: Hx Hepatitis, Hx Human Immunodeficiency Virus (HIV), Hx of Known/ Suspected MRSA, Traveled Outside the [place] in Last 30 Days - Family History Known Family History: Positive: Cardiac Disease - [place] - father, Other - [place] - mother - Social History Alcohol Use: Daily Alcohol Amount: 3 glasses of wine Substance Use Type: Reports: Marijuana Smoking Status (MU): Former Smoker Type: Cigarettes Review of Systems Negative: Fever Cardiovascular: Negative Respiratory: Negative Gastrointestinal: Other - POSITIVE: abd distension Positive: Edema - in left leg Skin: Other - POSITIVE: left leg redness All Other Systems Reviewed And Are Negative: Yes Physical Exam - Summary Physical Exam Summary: Appearance: The patient is well-nourished in no acute distress and in no acute pain. Skin: The skin is warm and dry. Psoriasis. Erythematous and diffuse rash. HEENT: The head is normocephalic and atraumatic. The pupils are equal and reactive. The conjunctivae are clear and without drainage. Nares are patent and without drainage. Mouth reveals moist mucous membranes and the throat is without erythema and exudate. The external ears are intact. The ear canals are patent and without drainage. The tympanic membranes are intact. Neck: the neck is supple with full range of motion and non-tender. There are no carotid bruits. There is no neck vein distension. Respiratory: Chest is non-tender. Lungs are clear to auscultation and breath sounds are symmetrical and equal. Cardiovascular: Heart is regular rate and rhythm. There is no murmur or rub auscultated. There is peripheral edema. Pulses are symmetrical and equal. Abdomen: The abdomen is soft and non-tender. Abdomen is distended. There are normal bowel sounds heard in all four quadrants and there is no organomegaly palpated. Musculoskeletal: There is no back tenderness noted. Extremities are non-tender with full range of motion. There is peripheral edema. Neurological: Patient is alert and oriented to person, place and time. The patient has symmetrical motor strength in all four extremities. Psychiatric: The patient has an appropriate affect and does not exhibit any anxiety or depression. Triage Information Reviewed: Yes Vital Signs On Initial Exam: Initial Vitals Temp Pulse Resp BP Pulse Ox 99.5 F 106 18 176/108 98 01/06/19 11:14 01/06/19 11:14 01/06/19 11:14 01/06/19 11:14 01/06/19 11:14 Vital Signs Reviewed: Yes Diagnostics - Vital Signs Vital Signs Temp Pulse Resp BP Pulse Ox 01/06/19 11:14 99.5 F 106 18 176/108 98 - Laboratory Result Diagrams: 01/06/19 12:13 01/06/19 12:13 Lab Statement: Any lab studies that have been ordered have been reviewed, and results considered in the medical decision making process. - CT Abdomen/Pelvis CT CT Interpretation Completed By: Radiologist Summary of CT Findings: IMPRESSION: 1. Cirrhotic liver. 2. Moderate amount of ascites. 3. Cholelithiasis. 4. Osteopenia with compression deformities of the lower lumbar spine without osseous retropulsion. 5. Atherosclerosis. Dr. Lewis has reviewed this report. Course/Dx - Course Course Of Treatment: Ms. Dupont is obviously ill on presentation but is not toxic and her vitals are stable. She has a wound on her left leg that may be getting infected. It is difficult to tell because of her chronic psoriatic rash. She does have a mild leukocytosis. She is hypokalemic and hyponatremic but also fluid overloaded and I have asked the hospitalist to evaluate her for admission and correction of her abnormalities. - Diagnoses Provider Diagnoses: Electrolyte and fluid disorder, Psoriasis - Physician Notifications Discussed Care Of Patient With: Nayeli Cardenas - hospitalist Time Discussed With Above Provider: 13:14 Instructed by Provider To: Will See In ED Discharge - Sign-Out/Discharge Documenting (check all that apply): Patient Departure - Admit to [facility] Patient Received Moderate/Deep Sedation with Procedure: No - Discharge Plan Condition: Stable Disposition: ADMITTED TO [facility] - Billing Disposition and Condition Condition: STABLE Disposition: Admitted to [facility] - Attestation Statements Document Initiated by Scribe: Yes Documenting Scribe: Lyndsay Boyd Provider For Whom Scribe is Documenting (Include Credential): Keith Lewis MD Scribe Attestation: ILyndsay, scribed for Keith Lewis MD on 01/06/19 at 1604. Scribe Documentation Reviewed: Yes Provider Attestation: The documentation as recorded by the Lyndsay jenkins accurately reflects the service I personally performed and the decisions made by me, Keith Lewis MD Status of Scribyennifer Document: Viewed
[2019-01-06 12:31] LABS: INR 1.17 (0.82-1.09)
[2019-01-06 12:32] LABS: ABS Basophils 0.1 10^3/ul (0-0.2); ABS Eosinophils 0.3 10^3/ul (0-0.6); ABS Monocytes 1.7 10^3/ul (0-0.8); ABS Neutrophils 8.4 10^3/ul (1.5-7.7); Eosinophil % 2.6 %; Hematocrit 38 % (35-47); Hemoglobin 13.1 g/dL (12.0-16.0); Mean Corpuscular HGB Conc 34 g/dL (31-36); Mean Corpuscular Hemoglobin 38 pg (27-31); Mean Corpuscular Volume 112 fL (80-97); Nucleated Red Blood Cells % 0.1; Platelet Count 202 10^3/uL (150-450); Red Blood Count 3.42 10^6 /uL (3.70-4.87); Red Cell Distribution Width 13 % (10-15); White Blood Count 12.6 10^3/uL (3.5-10.8)
[2019-01-06 12:40] LABS: C Reactive Protein 56.82 mg/L (<8.01); Calcium 8.6 mg/dL (8.6-10.3); EGFR African American 150.3 (>60); EGFR Non-African American 124.2 (>60); Globulin 3.1 g/dL (2-4); Total Bilirubin 1.9 mg/dL (0.2-1.0); Total Protein 6.1 g/dL (6.4-8.9)
[2019-01-06 12:43] LABS: Potassium 2.4 mmol/L (3.5-5.0)
[2019-01-06] MEDS ORDERED: Furosemide IV* 10 MG/ML VIAL (40 MG) IV ONE (14:27)
[2019-01-06 14:54] LABS: Activated Partial Thrombo Time 35.2 seconds (26.0-38.0)
[2019-01-06] MEDS ORDERED: Thiamine IV* 100 MG/ML 2 ML VIAL IM ONE (15:05)
[2019-01-06] MEDS ORDERED: Acetaminophen TAB* 325 MG PO PRN (15:05)
[2019-01-06] MEDS: Potassium Chlor TAB* 20 MEQ TAB.ER PO SCH ×2 (15:16→18:01)
--- NOTE | 2019-01-06 15:56 | HP ---
CC: Dr. Tay HISTORY AND PHYSICAL: ADDENDUM: PRIMARY CARE PHYSICIAN: Dr. Tay DATE OF ADMISSION: 01/06/19 The case was reviewed and discussed with RADHA Bruce. In summary, Ms. Dupont is a 63-year-old female with a past medical history of erythrodermic psoriasis, liver cirrhosis, who presented to the emergency room with complaints of increased swelling to her lo wer extremities and abdomen. The patient says that she notes she is to avoid salt and alcohol but ov er the weekend, she "indulged" and had hotdogs, chips and beer. She also is complaining of left leg lateral wound that developed after trauma. The impression is that the patient has a left lower extremity wound with possible infection and also is decompensated from her psoriasis due to dietary indiscretion. She has no abdominal pain and no res piratory compromise. Labs were reviewed and metabolic abnormalities will be corrected. CT of the abdomen and pelvis also was reviewed and showed cirrhotic liver with moderate amount of ascites. The patient will be admitted for further management. At this point, she does not appear to require p aracentesis as she has no abdominal pain, no respiratory symptoms. She appears to have more ascites and edema secondary to dietary indiscretion and I think diuresis should be tried first. She has no s igns of infection at this time. She is on hydrochlorothiazide as outpatient, but for now she will be diuresed with furosemide and Aldactone. We will also obtain records from her PCP, her GI doctor and customer response representative. A surgical consult will be requested to see if surgical debridement is indicated for her wound. [id number]/[facility] #: [id number]
[2019-01-06] MEDS ORDERED: LORazepam INJ* 2 MG/ML 1 ML VIAL IV PUSH SCH (16:00)
[2019-01-06] MEDS: Enoxaparin(*) 40 MG/0.4 ML SYR SUBCUT SCH (16:07)
[2019-01-06 16:45] LABS: Hepatitis B Surface Antigen Negative (Negative)
[2019-01-06 17:02] LABS: Hepatitis C Antibody Negative (Negative)
--- NOTE | 2019-01-06 17:12 | HP ---
CC: Dr. Tay; Marielle Dubon NP; Dr. Nieto * HISTORY AND PHYSICAL: DATE OF ADMISSION: 01/06/19 PRIMARY CARE PROVIDER: Dr. Tay. OTHER PROVIDERS: Marielle Dubon NP. Dr. Nieto. ATTENDING PHYSICIAN: Dr. Nayeli Garcia * (dictated by RADHA Bruce). CHIEF COMPLAINT: 1. Abdominal swelling. 2. Bilateral leg swelling. 3. Left leg wound. HISTORY OF PRESENT ILLNESS: Ms. Dupont is a 63-year-old female with a past medical history significant for cirrhosis and psoriasis, who presented to the ER today with complaints of abdominal swelling, bilateral lower extremity swelling and chronic left lower extremity wound. She is a bit of a poor historian and is unable to give accurate details about her past medical history including whether or not she has been diagnosed with cirrhosis. She presented today with ascites and bilateral lower extremity edema. She states that she has had these symptoms for approximately 3 months and they have worsened in the last 1 week. She states that she has been treated with hydrochlorothiazide for approximately 1 year for her edema. She states that she stopped this medication approximately 2 weeks ago. Her ascites and peripheral edema worsened which prompted her to restart her hydrochlorothiazide approximately 2 days after discontinuing it. She also notes that she had approximately 30 beers over 4 days from 01/02/19 on. Again, she states that the swelling was present prior to this but worsened with the increased consumption of alcohol and increased intake of salty foods. She is a regular drinker and states that she drinks approximately 3 beers per day. She does see a GI doctor at [place], her last appointment was in August. She does not have a followup appointment scheduled. She has been taking hydrochlorothiazide 25 for approximately 1 year for treatment of swelling. The patient also presents today with a chronic left lateral lower extremity wound that she states has been present for approximately 2 months. She has not discussed this wound with any of her providers. She has been self-treating with triamcinolone, a medication she is on chronically for her psoriasis, which she states she stopped approximately 3 weeks ago because the wound was improving. She then notes that approximately 1 week later, the wound started worsening. This wound appeared after the patient hit her leg on stair. Also of note, the patient states that she is being treated with topical steroids triamcinolone for "sunburn psoriasis" which was diagnosed by Dr. Nieto approximately 1 year ago. Her presentation is that of erythema over all areas of the body, worse in some areas than others. Currently, the patient complains of burning on the skin as well as easy bruising. She denies chest pain, shortness of breath, hematemesis, hemoptysis, hematochezia, melena. She denies itching of the skin, but again notes that it does burn. She denies other skin changes. She denies chest pain, shortness of breath, cough, fever, chills. She denies abdominal pain, nausea, vomiting, diarrhea, or urinary symptoms. In the ER, the patient received a full workup which included wound culture and sensitivity of the lateral left lower extremity wound and the laboratory workup which revealed leukocytosis, hypokalemia, hyponatremia, increased bilirubin, increased ALT and elevated CRP. She also received a CT of the abdomen and pelvis, which revealed cirrhosis, ascites, cholelithiasis, osteopenia and atherosclerosis. The hospitalist team was asked to evaluate the patient for admission. PAST MEDICAL HISTORY: 1. Cirrhosis. 2. Erythrodermic psoriasis. 3. GERD. PAST SURGICAL HISTORY: Tubal ligation. HOME MEDICATIONS: 1. Hydrochlorothiazide 25 mg p.o. daily. 2. Ranitidine 300 mg p.o. daily. 3. Triamcinolone 1 application topically b.i.d. DRUG ALLERGIES: None. FAMILY HISTORY: Father: [place], stroke. Mother: Cervical, uterine and breast cancer. Negative for diabetes mellitus. SOCIAL HISTORY: The patient is a former smoker, she quit approximately 2009. Prior to that, she smoked for approximately 30 years, 2 packs per day. She drinks approximately 3 beers per day. She denies use of other drugs. 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 In the event that she is unable to make her own medical decisions, she has appointed her , Keith Morales to be her surrogate decision maker. REVIEW OF SYSTEMS: A 10-point review of systems was performed and all the pertinent positives and negatives are in the HPI, all other systems are negative. PHYSICAL EXAMINATION GENERAL: Ms. Dupont is a poor historian. She is well developed, well nourished , of average weight. She appears older than her stated age. She is sitting up in bed. She appears to be in no acute distress. VITAL SIGNS: Temperature 99.0, heart rate 109, respiratory rate 25, oxygen saturation 92% on room air, blood pressure 172/98. HEENT: PERRL. EOMI. Sclerae is nonicteric. Hearing is grossly intact. Oral mucous membranes are moist without any lesions. Pharynx is clear. RESPIRATORY: Symmetrical chest expansion. There is no use of accessory muscles. There are bibasilar crackles. No rhonchi, wheezes, or rubs. CARDIOVASCULAR: Tachycardic rate. Regular rhythm. S1, S2 present without murmurs, rubs, clicks, or gallops. There is no JVD. ABDOMEN: Distended. Bowel sounds are noted in all quadrants. The abdomen is nontender to palpation. Unable to assess hepatosplenomegaly due to distention. MUSCULOSKELETAL: Full range of motion without pain or deformities. EXTREMITIES: There is no clubbing or cyanosis. Bilateral lower extremity edema is 3+ pitting. SKIN: The patient's skin is thin especially the extremities. She has diffuse erythema, which appears to be worsened in skin folds, but also in other patchy areas throughout the body. She has palmar erythema. She has areas of bruising especially on the upper and lower extremities. There is a 5.5 x 1 cm open wound to the lateral left lower extremity with light brown/christensen nongranular tissue in place. There is clear drainage coming from the area. There is a very small amount of erythema surrounding the area which is not warm. There are no signs or symptoms of cellulitis. NEURO: Patient is awake, alert, and oriented x3. She is able to move all of her extremities. Cranial nerves are grossly intact. DIAGNOSTIC STUDIES/LAB DATA: CT abdomen and pelvis, 01/06/19, impression: Cirrhotic liver. Moderate amount of ascites. Cholelithiasis. Osteopenia with compression deformities of the lower lumbar spine without osseous retropulsion. Atherosclerosis. Laboratory data: WBC 12.6, RBC 3.42, MCV 112, MCH 38. INR 1.17. Sodium 127, potassium 2.4, chloride 90, BUN 5, creatinine 0.50, glucose 103, bilirubin 1.90 , AST 59. CRP 56.82. BNP 154. Total protein 6.1. Albumin 3.0. ASSESSMENT AND PLAN: Ms. Dupont is a 63-year-old female with a past medical history of cirrhosis and psoriasis, who presented to the ER today with complaints of abdominal swelling, bilateral lower extremity swelling and left lower extremity wound. The patient will be admitted inpatient for: 1. Ascites, bilateral lower extremity edema. The patient states that this has been occurring for approximately 1 week and has worsened with alcohol use and increased sodium intake. The abdominal area is nontender to palpation. The patient denies shortness of breath. The patient is noted to have an elevated bilirubin and AST. There is cirrhosis noted on abdominal and pelvic CT. The patient is Child-Beverly score 8 class B, MELD score 11 giving her 6% 3-month mortality rate. She will be given 1 dose of Lasix 40 now, 1 dose of Lasix 40 in the morning, Aldactone 50 in the evening and then reassess the need to continue these. Orders will be placed for elevation of lower extremities. She will be placed on a sodium restriction diet. Record requests have been placed for her recent ultrasound as well as other records from Dr. Tay, Dr. Nieto, and her GI doctor from [place]. 2. Lateral left lower extremity wound. The patient has had this for approximately 2 months. She has been treating it on her own with triamcinolone , which she uses daily for her psoriasis, per Dr. Nieto. The wound does not appear infected and there are no signs of cellulitis. A wound consult has been ordered. A surgical consult is also ordered to assess for need for debridement. We will await culture and sensitivity results. 3. Alcohol abuse. The patient uses alcohol daily approximately 3 beers per day. She will be placed on [place] protocol. 4. Hypokalemia. The patient has potassium of 2.4. Potassium 20 p.o. q.2 hours x5 has been ordered. We will repeat lab studies in the morning. 5. Hyponatremia. This is likely due to cirrhosis. We will continue to monitor for need for intervention. 6. Erythrodermic psoriasis. The patient is being seen by Dr. Ventura who has diagnosed her with erythrodermic psoriasis. Instructions were to continue triamcinolone 0.1% b.i.d. The patient will continue this while in the hospital. 7. Gastroesophageal reflux disease. Continue ranitidine 300 mg p.o. daily. 8. FEN: The patient will be placed on sodium restriction. 9. Code status: Full code. 10. DVT prophylaxis: According to the DVT risk assessment, the patient scores 3 and is placed at high risk. She will be placed on Lovenox 40 subcu q.24 hours. TIME SPENT: Approximately 60 minutes was spent on this admission, greater than half that time was spent with the patient, obtaining history, performing a physical, and reviewing the plan of care. The case has been reviewed with my attending Dr. Garcia, who is in agreement with the plan of care. RADHA BOUDREAUX [id number]/[facility] #: [id number] MICHAEL
[2019-01-06] MEDS: Collagenase 250 UNITS/GM OINT* 1 APPLIC OINT TOPICAL SCH (17:17)
[2019-01-06] MEDS: Potassium Chloride* LIQUID 20 MEQ/15 ML UDC PO SCH ×3 (18:05→22:34)
--- NOTE | 2019-01-06 18:35 | CONS ---
CONSULTATION REPORT: DATE OF CONSULT: 01/06/19 CONSULTING PROVIDERS: RADHA Bruce, hospitalist; Dr. Nayeli Garcia, hospitalist. REASON FOR CONSULT: Left lower leg laceration. HISTORY OF PRESENT ILLNESS: Ms. Michelle Dupont is a 63-year-old woman who presented to the emergency room today with complaint of bilateral lower extremity swelling and discomfort. She has a known history of liver cirrhosis with ascites and fluid overload and apparently had some dietary indiscretion over the weekend. She also states that several months ago, she scraped her left lateral calf on a sharp object and since that time, has been applying antibiotic ointment to the laceration. She has not had any discomfort. There has been no odor or purulent drainage and she states it has been healing fairly well, although it has been slow to completely heal. She has been admitted for medical evaluation and surgical consultation was obtained. She has not seen a health practitioner for her leg laceration and has not been on any oral antibiotics. She is somewhat vague as to exactly the duration of the wound. She is followed by her primary care provider, Dr. Tay, at the [facility], where she also apparently sees a per diem physical therapist assistant. PAST MEDICAL HISTORY: 1. Alcohol abuse with apparent ascites and liver cirrhosis. 2. Psoriasis. PAST SURGICAL HISTORY: None. MEDICATIONS: On admission included: 1. Triamcinolone cream. 2. Zantac. 3. Hydrochlorothiazide. ALLERGIES: She has no known allergies. SOCIAL HISTORY: She drinks heavily on a daily basis. She quit smoking about 10 years ago. She apparently lives with her significant other. She denies use of illicit drugs. REVIEW OF SYSTEMS: Not completely able to obtain from the patient as I am not certain and she does not appear to be the most accurate of historians. PHYSICAL EXAM: Shows her temperature to be 99, pulse is 111, blood pressure is 171/79. General: In both lower extremities, she has 1 to 2+ pitting edema. There are psoriatic changes on both lower extremities. She has palpable left strong dorsalis pedis pulse. There is a weakly palpable left posterior tibial pulse. She has normal sensation to light touch and pinprick in the foot and in the toes, and has normal range of motion and 5/5 motor strength in dorsiflexion and plantarflexion of the foot. Along the lateral aspect of the calf, midway between the knee and ankle is a clean, somewhat fibrin-based laceration site without any evidence of undermining or tracking. The base of the wound shows healthy pink granulation tissue but there is some fibrin at the inferior aspect of the wouned. This is approximately 1 cm wide x 6 cm in length and it is slightly curved in orientation. There is no tracking, abscess, odor, or purulence. IMPRESSION: Chronic nonhealing laceration of the left lower extremity as described above. No signs of obvious infection and at this point, I do not believe it requires immediate debridement as there is really no nonviable tissue or sign of infection. I do not feel that this wound requires IV or oral antibiotics. There is some fibrin at the inferior base, which would benefit from some enzymatic debridement with Santyl. Also beneficial would be leg elevation. PLAN: 1. Orders have been written for Santyl daily to the wound and cover with gauze and a light wrap without use of tape. 2. Leg elevation. 3. We will follow her here in the hospital. Upon discharge, she would be a candidate for followup at the [facility] as I suspect with her associated alcohol abuse and malnutrition, this will require some intensive long-term wound care. Thank you very much for this consultation. We will follow her with you. [id number]/[facility] #: [id number] MICHAEL
[2019-01-06] MEDS: TRIAMCINOLONE 0.1% TOPICAL SCH (20:56)
[2019-01-06] MEDS ORDERED: Triamcinolone 0.025% OINT * 15 GM TUBE TOPICAL SCH (21:00)
[2019-01-07] MEDS: Potassium Chloride* LIQUID 20 MEQ/15 ML UDC PO SCH ×2 (00:33→02:29)
[2019-01-07 06:25] LABS: ABS Lymphocytes 1.2 10^3/ul (1.0-4.8); ABS Monocytes 1.5 10^3/ul (0-0.8); ABS Neutrophils 5.5 10^3/ul (1.5-7.7); Eosinophil % 0.5 %; Hematocrit 37 % (35-47); Lymphocyte % 14.4 %; Mean Corpuscular HGB Conc 35 g/dL (31-36); Mean Corpuscular Hemoglobin 39 pg (27-31); Mean Corpuscular Volume 112 fL (80-97); Mean Platelet Volume 8.2 fL (7.4-10.4); Nucleated Red Blood Cells % 0.1; Platelet Count 180 10^3/uL (150-450); Red Blood Count 3.33 10^6 /uL (3.70-4.87); Red Cell Distribution Width 13 % (10-15); White Blood Count 8.3 10^3/uL (3.5-10.8)
[2019-01-07 06:47] LABS: Albumin 2.8 g/dL (3.2-5.2); Calcium 8.6 mg/dL (8.6-10.3); EGFR African American 178.9 (>60); EGFR Non-African American 147.8 (>60); Globulin 2.7 g/dL (2-4); Potassium 3.8 mmol/L (3.5-5.0); Total Bilirubin 2.6 mg/dL (0.2-1.0); Total Protein 5.5 g/dL (6.4-8.9)
[2019-01-07] MEDS ORDERED: Furosemide IV* 10 MG/ML VIAL (40 MG) IV ONE (09:00)
[2019-01-07] MEDS: Folic Acid TAB* 1 MG PO SCH (10:12)
[2019-01-07] MEDS: TRIAMCINOLONE 0.1% TOPICAL SCH ×2 (10:12→20:50)
[2019-01-07] MEDS: Collagenase 250 UNITS/GM OINT* 1 APPLIC OINT TOPICAL SCH (10:12)
[2019-01-07] MEDS: Famotidine TAB* 20 MG PO SCH ×2 (10:12→20:49)
[2019-01-07] MEDS: Thiamine TAB* 100 MG TAB PO SCH (10:12)
[2019-01-07] MEDS: Multivitamins/Minerals TAB PO SCH (10:12)
--- NOTE | 2019-01-07 11:33 | PN ---
Subjective Date of Service: 01/07/19 Interval History: Ms. Dupont is not feeling well today. She denies SOB, but does not think her ascites or LE edema have improved. Otherwise, she has no specific complaints. Denies CP, N/V. She does report drinking approx 15 beers this weekend, which is more than usual for her. She also stopped taking her HCTZ about 2 weeks about because she thought it was causing increased bruising. No concerns from nursing. Family History: Unchanged from Admission Social History: Unchanged from Admission Past Medical History: Unchanged from Admission Objective Active Medications: Acetaminophen (Tylenol Tab*) 650 mg PO Q4H PRN PAIN Collagenase (Santyl 250 Mg/Gm Oint*) 1 applic TOPICAL DAILY [facility] Enoxaparin Sodium (Lovenox(*)) 40 mg SUBCUT Q24H [facility] Famotidine (Pepcid Tab*) 20 mg PO BID [facility]; Protocol Folic Acid (Folvite Tab*) 1 mg PO DAILY [facility] Lorazepam (Ativan Inj*) 0 - 3 mg IV PUSH .PER [facility] PROTOCOL [facility]; Protocol Multivitamins/Minerals (Theragran/Minerals Tab*) 1 tab PO DAILY [facility] Spironolactone (Aldactone Tab*) 50 mg PO DAILY [facility] Thiamine HCl (Vitamin B-1 Tab*) 100 mg PO DAILY [facility] Triamcinolone Acetonide (Triamcinolone Acetonide) 0.1 % TOPICAL BID [facility] Vital Signs - 8 hr 01/07/19 01/07/19 01/07/19 03:34 05:08 07:00 Temperature 98.1 F 98.5 F Pulse Rate 65 95 Respiratory 17 18 16 Rate Blood Pressure 116/63 146/72 (mmHg) O2 Sat by Pulse 97 98 Oximetry 01/07/19 01/07/19 01/07/19 07:20 07:54 09:35 Temperature 98.8 F 98.4 F Pulse Rate 85 78 Respiratory 16 16 16 Rate Blood Pressure 140/66 134/80 (mmHg) O2 Sat by Pulse 99 97 Oximetry 01/07/19 11:00 Temperature 99.5 F Pulse Rate 80 Respiratory 16 Rate Blood Pressure 131/70 (mmHg) O2 Sat by Pulse 94 Oximetry Oxygen Devices in Use Now: None Appearance: Middle-aged female sitting in bed in NAD; Diffuse erythematous rash Eyes: - - Scleral icterus present Ears/Nose/Mouth/Throat: Mucous Membranes Moist Neck: NL Appearance and Movements; NL JVP, Trachea Midline Respiratory: Symmetrical Chest Expansion and Respiratory Effort, Clear to Auscultation Cardiovascular: NL Sounds; No Murmurs; No JVD, RRR Abdominal: - - Large, round, and distended, but soft; Normoactive BS Extremities: - - +3 pitting BLE Neurological: Alert and Oriented x 3 Lines/Tubes/Other Access: Clean, Dry and Intact Peripheral IV Nutrition: Taking PO's Result Diagrams: 01/07/19 05:46 01/07/19 05:46 Assess/Plan/Problems-Billing Assessment: Mr. Dupont is a 63 yo F with PMH of cirrhosis and erythrodermic psoriasis; who presented to the ED with c/o abdominal and LE swelling and was found to have ascites as well as a chronic left leg wound. - Patient Problems (1) Alcoholic cirrhosis Code(s): K70.30 - ALCOHOLIC CIRRHOSIS OF LIVER WITHOUT ASCITES Comment: - Recently stopped taking HCTZ and increased alcohol intake over the weekend - Abdomen CT remarkable for cirrhosis - MELD-Na is 17 indicating a <2% 90-day mortality risk - Follows with GI at [place], awaiting records - Continue spironolactone, furosemide (2) Hypokalemia Code(s): E87.6 - HYPOKALEMIA Comment: - On admission, now resolved - Trend BMP daily (3) Leg wound, left Code(s): S81.802A - UNSPECIFIED OPEN WOUND, LEFT LOWER LEG, INITIAL ENCOUNTER Comment: - Secondary to fall 3-4 months ago, now nonhealing - Appreciate wound care consult - Daily Santyl and gauze dressing changes per Surgery (4) Alcohol abuse Code(s): F10.10 - ALCOHOL ABUSE, UNCOMPLICATED Comment: - Encouraged abstinence (5) GERD (gastroesophageal reflux disease) Code(s): K21.9 - GASTRO-ESOPHAGEAL REFLUX DISEASE WITHOUT ESOPHAGITIS Comment : - Continue famotidine (6) Erythrodermic psoriasis Code(s): L40.8 - OTHER PSORIASIS Comment: - Continue triamcinolone (7) DVT prophylaxis Comment: - Lovenox (8) Full code status Code(s): Z78.9 - OTHER SPECIFIED HEALTH STATUS Comment: Status and Disposition: Inpatient. Anticipate d/c home when medically stable. Attending: Mei Skaggs
[2019-01-07] MEDS ORDERED: Acetaminophen TAB* 325 MG PO PRN (14:14)
[2019-01-07] MEDS: Enoxaparin(*) 40 MG/0.4 ML SYR SUBCUT SCH (14:51)
[2019-01-07] MEDS ORDERED: Spironolactone TAB* 25 MG PO ONE (15:00)
--- NOTE | 2019-01-07 17:32 | CONSULT ---
Subjective Date of Service: 01/07/19 Interval History: Ms. Dupont is a 63 yo female with PMH significant for Cirrhosis, psoriasis, and GERD, who presented to the hospital with complaints of abdominal swelling, bilateral LE swelling and a left leg wound. She was admitted to the hospital for ascities and LE edema. She presented to the hospital with a laceration to her left leg that has been present for about 2 months after a fall at home. She has been treating the wound at home with ABX ointment. She was seen in consultation by Dr. Telles while in the hospital and it was recommended that the wound be treated with Santyl. Patient seen and examined at bedside. Family History: Unchanged from Admission Social History: Unchanged from Admission Past Medical History: Unchanged from Admission Review of Systems - Measurements Intake and Output: Intake and Output Last 24 Hours 01/05/19 01/06/19 01/07/19 01/08/19 06:59 06:59 06:59 06:59 Intake Total 120 960 Balance 120 960 Weight 146 lb Intake: Oral 120 960 Other: Estimated Void Large Date of Last Bowel 01/07/19 Movement # Bowel Movements 0 1 # Voids 1 1 - Review of Systems Constitutional Symptoms: Negative: Fever, Other - Chills Dermatology: Positive: Other - Laceration to left LE Objective Active Medications: Acetaminophen (Tylenol Tab*) 650 mg PO Q4H PRN Reason: Pain 1-5/10 Collagenase (Santyl 250 Mg/Gm Oint*) 1 applic TOPICAL DAILY [facility] Enoxaparin Sodium (Lovenox(*)) 40 mg SUBCUT Q24H [facility] Famotidine (Pepcid Tab*) 20 mg PO BID [facility]; Protocol Folic Acid (Folvite Tab*) 1 mg PO DAILY [facility] Furosemide (Lasix Iv*) 40 mg IV DAILY [facility] Lorazepam (Ativan Inj*) 0 - 3 mg IV PUSH .PER [facility] PROTOCOL [facility]; Protocol Multivitamins/Minerals (Theragran/Minerals Tab*) 1 tab PO DAILY [facility] Spironolactone (Aldactone Tab*) 100 mg PO DAILY [facility] Thiamine HCl (Vitamin B-1 Tab*) 100 mg PO DAILY [facility] Triamcinolone Acetonide (Triamcinolone Acetonide) 0.1 % TOPICAL BID [facility] Vital Signs - 8 hr 01/07/19 01/07/19 01/07/19 09:35 11:20 13:00 Temperature 98.4 F 97.5 F 99.4 F Pulse Rate 78 101 112 Respiratory 16 16 16 Rate Blood Pressure 134/80 149/87 154/79 (mmHg) O2 Sat by Pulse 97 100 95 Oximetry 01/07/19 15:00 Temperature 98.5 F Pulse Rate 102 Respiratory 16 Rate Blood Pressure 146/71 (mmHg) O2 Sat by Pulse 91 Oximetry Oxygen Devices in Use Now: None Appearance: NAD, sitting up in bed Eyes: - - Scleral with slight icterus Ears/Nose/Mouth/Throat: Mucous Membranes Moist Respiratory: Symmetrical Chest Expansion and Respiratory Effort Cardiovascular: - - 1+ left tibial pulse Extremities: - - 2+ bilateral LE edema. Skin: - - See skin note below Neurological: Alert and Oriented x 3 Nutrition: Taking PO's Result Diagrams: 01/07/19 05:46 01/09/19 05:52 Additional Lab and Data: Above labs were pulled into the note when the note was edited prior to signing , see labs from day of consult below Laboratory Tests 01/06/19 01/07/19 01/07/19 12:13 05:46 05:46 WBC 8.3 Hgb 13.0 Hct 37 Plt Count 180 Sodium 133 L Potassium 3.8 Chloride 96 L Carbon Dioxide 30 BUN 6 Creatinine 0.43 L Glucose 104 H C-Reactive Protein 56.82 H Microbiology and Other Data: Microbiology 01/06/19 11:57 Skin and Soft Tissue MRSA/MSSA (PCR - Final Leg Left Mrsa Negative S.aureus Negative Gram Stain - Final Wound Culture - Preliminary Pseudomonas Aeruginosa Citrobacter Braakii Staphylococcus Schleiferi Skin Deviation Note - Skin Deviation Findings Left Leg - There is a laceration to the lateral aspect of the leg, measures 4.5 cm x 3 cm x 0.5 cm. The wound bed is 75% yellow slough and 25% red granulation tissue. There is no drainage from the wound. The surrounding skin with erythema. Assessment/Plan: Ms. Dupont is a 63 yo female with PMH significant for Cirrhosis, psoriasis, and GERD, who presented to the hospital with complaints of abdominal swelling, bilateral LE swelling and a left leg wound. She was admitted to the hospital for ascities and LE edema. She presented to the hospital with a laceration to her left leg that has been present for about 2 months after a fall at home. 1. Chronic nonhealing wound to the left LE. Secondary to a laceration resulting from a fall at home 2 months ago. The edema may also be effecting the wound healing. No concern for soft tissue infection at this time. Recommend continuing Santyl, telfa, gauze if drainage present, and rolled gauze, and change the dressing daily. Keep the legs elevated. Consider wound clinic referral at discharge. 2. Diet. Low sodium diet. 3. Code Status. Full Code Status. 4. Disposition. Inpatient, disposition per primary medicine team. TIME SPENT: Time for this wound consultation was 20 minutes and 10 minutes was spent with the patient discussing PMH; removing the old pressing; assessing, measuring, and photographing the wound; and reapplying a new dressing. Wound Problem/Plan Is Patient a Wound Clinic Patient: No Attending: Sandi Borrero
[2019-01-08 07:47] LABS: BUN/Creatinine Ratio 11.3 (8-20); Calcium 8.2 mg/dL (8.6-10.3); EGFR African American 140.5 (>60); EGFR Non-African American 116.1 (>60); Potassium 2.9 mmol/L (3.5-5.0)
[2019-01-08] MEDS: Multivitamins/Minerals TAB PO SCH (08:21)
[2019-01-08] MEDS: Furosemide IV* 10 MG/ML VIAL (40 MG) IV SCH (08:21)
[2019-01-08] MEDS: Famotidine TAB* 20 MG PO SCH ×2 (08:21→20:15)
[2019-01-08] MEDS: Thiamine TAB* 100 MG TAB PO SCH (08:21)
[2019-01-08] MEDS: Folic Acid TAB* 1 MG PO SCH (08:21)
[2019-01-08] MEDS: Collagenase 250 UNITS/GM OINT* 1 APPLIC OINT TOPICAL SCH (08:22)
[2019-01-08] MEDS: Spironolactone TAB* 25 MG PO SCH (08:22)
[2019-01-08] MEDS: TRIAMCINOLONE 0.1% TOPICAL SCH ×2 (08:23→20:32)
[2019-01-08] MEDS: KCL 20 MEQ/100 ML IVPREMIX* 20 MEQ/100 ML BAG IV SCH ×2 (08:36→10:50)
[2019-01-08] MEDS: Potassium Chlor TAB* 20 MEQ TAB.ER PO SCH ×2 (08:37→13:52)
--- NOTE | 2019-01-08 10:44 | PN ---
Subjective Date of Service: 01/08/19 Interval History: Ms. Dupont is feeling somewhat better today. She had an upset stomach this morning after taking medications. She says this typically happens to her if she takes meds on an empty stomach. She thinks ascites has improved. Denies CP, SOB , N/V. Anxious to get up and walk. No concerns from nursing. Family History: Unchanged from Admission Social History: Unchanged from Admission Past Medical History: Unchanged from Admission Objective Active Medications: Acetaminophen (Tylenol Tab*) 650 mg PO Q4H PRN Pain 1-11/08 Collagenase (Santyl 250 Mg/Gm Oint*) 1 applic TOPICAL DAILY [facility] Enoxaparin Sodium (Lovenox(*)) 40 mg SUBCUT Q24H [facility] Famotidine (Pepcid Tab*) 20 mg PO BID [facility]; Protocol Folic Acid (Folvite Tab*) 1 mg PO DAILY [facility] Furosemide (Lasix Iv*) 40 mg IV DAILY [facility] Potassium Chloride (Potassium Chloride 20 Meq/100 Ml Ivpremix*) 20 meq in 100 mls @ 50 mls/hr IV Q2H [facility] Lorazepam (Ativan Inj*) 0 - 3 mg IV PUSH .PER [facility] PROTOCOL [facility]; Protocol Multivitamins/Minerals (Theragran/Minerals Tab*) 1 tab PO DAILY [facility] Potassium Chloride (Klor Con Er Tab*) 20 meq PO Q4H [facility] Spironolactone (Aldactone Tab*) 100 mg PO DAILY [facility] Thiamine HCl (Vitamin B-1 Tab*) 100 mg PO DAILY [facility] Triamcinolone Acetonide (Triamcinolone Acetonide) 0.1 % TOPICAL BID [facility] Vital Signs - 8 hr 01/08/19 01/08/19 01/08/19 03:16 07:19 08:00 Temperature 98.1 F 97.8 F Pulse Rate 86 91 Respiratory 18 18 18 Rate Blood Pressure 150/75 153/81 (mmHg) O2 Sat by Pulse 98 98 Oximetry Oxygen Devices in Use Now: None Appearance: Middle-aged female sitting in bed in NAD Eyes: No Scleral Icterus Ears/Nose/Mouth/Throat: Mucous Membranes Moist Neck: NL Appearance and Movements; NL JVP, Trachea Midline Respiratory: Symmetrical Chest Expansion and Respiratory Effort, Clear to Auscultation Cardiovascular: NL Sounds; No Murmurs; No JVD, RRR Abdominal: - - Ascites, SNT Extremities: - - +2 pitting BLE Skin: - - Diffuse erythematous rash Neurological: Alert and Oriented x 3 Lines/Tubes/Other Access: Clean, Dry and Intact Peripheral IV Nutrition: Taking PO's Result Diagrams: 01/07/19 05:46 01/08/19 07:03 Assess/Plan/Problems-Billing Assessment: Mr. Dupont is a 63 yo F with PMH of cirrhosis and erythrodermic psoriasis; who presented to the ED with c/o abdominal and LE swelling and was found to have ascites as well as a chronic left leg wound. - Patient Problems (1) Alcoholic cirrhosis Code(s): K70.30 - ALCOHOLIC CIRRHOSIS OF LIVER WITHOUT ASCITES Comment: - Recently stopped taking HCTZ and increased alcohol intake over the holiday weekend - Abdomen CT remarkable for cirrhosis - MELD-Na is 17 indicating a <2% 90-day mortality risk - Follows with GI at [facility] - Fluid restriction of 1500mL per day - Continue spironolactone, furosemide (2) Hypokalemia Code(s): E87.6 - HYPOKALEMIA Comment: - Potassium down again today d/t diuretics - Replete with IV and PO and recheck in AM (3) Leg wound, left Code(s): S81.802A - UNSPECIFIED OPEN WOUND, LEFT LOWER LEG, INITIAL ENCOUNTER Comment: - Secondary to fall 3-4 months ago, now nonhealing - Appreciate wound care consult - Wound culture growing Pseudomonas aeruginosa, Citrobacter braakii, Staphylococcus schleiferi; possibly all normal adrian - Spoke with ID/Wound DIRECTOR [facility] [employer] who does not feel this warrants antibiotic treatment at this time as it does not appear actively infected though will continue to monitor closely for s/s of infection - Daily Santyl and gauze dressing changes per Surgery (4) Alcohol abuse Code(s): F10.10 - ALCOHOL ABUSE, UNCOMPLICATED Comment: - Encourage abstinence - Social work consult placed (5) GERD (gastroesophageal reflux disease) Code(s): K21.9 - GASTRO-ESOPHAGEAL REFLUX DISEASE WITHOUT ESOPHAGITIS Comment : - Continue famotidine (6) Erythrodermic psoriasis Code(s): L40.8 - OTHER PSORIASIS Comment: - Continue triamcinolone (7) DVT prophylaxis Comment: - Lovenox (8) Full code status Code(s): Z78.9 - OTHER SPECIFIED HEALTH STATUS Comment: Status and Disposition: Inpatient. Anticipate d/c home when medically stable. Attending: Mei Skaggs
[2019-01-08] MEDS: Enoxaparin(*) 40 MG/0.4 ML SYR SUBCUT SCH (13:52)
[2019-01-09 06:28] LABS: BUN/Creatinine Ratio 18.8 (8-20); Calcium 8.5 mg/dL (8.6-10.3); EGFR African American 157.6 (>60); EGFR Non-African American 130.2 (>60); Potassium 3.3 mmol/L (3.5-5.0)
[2019-01-09] MEDS: Thiamine TAB* 100 MG TAB PO SCH (08:49)
[2019-01-09] MEDS: Multivitamins/Minerals TAB PO SCH (08:49)
[2019-01-09] MEDS: Furosemide IV* 10 MG/ML VIAL (40 MG) IV SCH (08:49)
[2019-01-09] MEDS: Spironolactone TAB* 25 MG PO SCH (08:49)
[2019-01-09] MEDS: Famotidine TAB* 20 MG PO SCH (08:49)
[2019-01-09] MEDS: Folic Acid TAB* 1 MG PO SCH (08:49)
[2019-01-09] MEDS: TRIAMCINOLONE 0.1% TOPICAL SCH (08:50)
[2019-01-09] MEDS: Collagenase 250 UNITS/GM OINT* 1 APPLIC OINT TOPICAL SCH (08:50)
[2019-01-09] MEDS ORDERED: Potassium Chlor TAB* 20 MEQ TAB.ER PO ONE (09:22)
[2019-01-09 09:35] LABS: C Reactive Protein 37.61 mg/L (<8.01); Magnesium 1.2 mg/dL (1.9-2.7)
--- NOTE | 2019-01-09 11:41 | CONS ---
CONSULTATION REPORT: DATE OF CONSULT: 01/09/19 REQUESTING PHYSICIAN: Dr. Henry. CONSULTING SERVICE: Infectious Disease. REASON FOR CONSULTATION: Leg wound. IMPRESSION: 1. Non-pressure related left lower leg wound that developed after a fall in September. There is underlying granulation tissue which has been exposed since using Santyl for debridement. There is no surrounding erythema, purulent drainage, or evidence of a soft tissue infection. It is not over a bony prominence and I do not think there is an osteomyelitis. Wound culture when she arrived here grew Pseudomonas, Citrobacter, and Staphylococcus schleiferi, which I think are colonizers of the wound and not pathogens in this case. 2. Worsening bilateral lower extremity edema in the setting of cirrhosis and increased alcohol use and salt load. 3. Elevated CRP which is improving and is likely multifactorial including just from the open wound itself. 4. Erythrodermic psoriasis which may also be influencing her C-reactive protein. RECOMMENDATIONS: We will continue to hold antibiotics and follow the wound with recommendations given by the surgeons and Carmen Lugo NP. HISTORY OF PRESENT ILLNESS: This is a 63-year-old woman with cirrhosis and worsening lower extremity edema that lead her to be admitted earlier in the week on 01/06/19. Her edema comes and goes she said, may be related to salty foods, and sometimes it just seems to always be there. She did fall a couple of months ago, probably September from her recollection, and injured the left lateral leg. She had been putting antibiotic ointment on it and keeping it covered. When she came here, a culture was taken of it that grew Pseudomonas. Citrobacter, and Staphylococcus schleiferi. She has not received antibiotics here. She is followed by Dr. Telles and then by Carmen Lugo NP. They are using Santyl and a wound dressing. There had been fibrous material present but that has gone today, she thinks. She has had no redness, pain, swelling, or much in the way of drainage. The leg swelling is down a little bit since she has been here. She has had no fevers, chills, or sweats. PAST MEDICAL HISTORY: 1. Cirrhosis. 2. Psoriasis. 3. Gastroesophageal reflux disease. 4. Status post tubal ligation. ALLERGIES: None. MEDICATIONS: 1. Tylenol. 2. Enoxaparin. 3. Famotidine twice a day. 4. Lasix daily. 5. Spironolactone daily. 6. Thiamine daily. 7. Triamcinolone topical twice a day. SOCIAL HISTORY: She is a past smoker. She drinks about 3 beers a day. No other illicit drug. She works at [employer]. FAMILY HISTORY: Father had an CO and a stroke. Mother had cervical, uterine, and breast cancer. REVIEW OF SYSTEMS: All negative except as noted above to a 12-point review. PHYSICAL EXAM: Vital Signs: Temperature is 36.7, heart rate 100, respiratory rate 20, blood pressure 150/75, oxygen saturation 95% on room air. In general, she is awake but not in distress. She appears comfortable. HEENT: There is no conjunctival hemorrhage. Oropharynx without lesions. Neck is supple without mass. Heart is regular and tachycardic without murmurs. Lungs are clear to auscultation bilaterally. Abdomen: Soft, nontender, and nondistended. There are bowel sounds present. Skin: There is diffuse erythema which is blanching on her face, trunk, and arms. Musculo-skeletal: There is no spine tenderness to palpation or joint synovitis. Left lower lateral leg, there is a comma-shaped 4 cm open wound without surrounding erythema. There is no serous drainage, fluctuance, or crepitus and minimal tenderness with underlying granulation tissue. LABORATORY DATA: White blood cell count 8, hemoglobin 13, platelets 180. Creatinine is 0.5, CRP 37, bilirubin 3.6. Please see impressions and recommendations as outlined above, which I have discussed with Dr. Henry. Thanks for asking me to see Ms. Dupont in consultation. [id number]/[facility] #: [id number] MICHAEL
[2019-01-09] MEDS: Enoxaparin(*) 40 MG/0.4 ML SYR SUBCUT SCH (15:08)
[2019-01-09 15:42] VITALS: BP 139/78
--- NOTE | 2019-01-10 08:50 | DS ---
DISCHARGE SUMMARY: DATE OF ADMISSION: 01/06/19 DATE OF DISCHARGE: 01/09/19 ADMITTING PROVIDER: Lino Henry MD PRIMARY CARE PROVIDER: Dr. Tay. CHIEF COMPLAINT: Abdominal swelling, bilateral leg swelling and a subacute leg wound. PRINCIPAL DIAGNOSES: Decompensated cirrhosis in the setting of relapse with alcohol use; left leg ulceration needing wound care. HISTORY OF PRESENT ILLNESS/HOSPITAL COURSE: Michelle Dupont is a 63-year-old female with a past medical history of suspected alcoholic cirrhosis, erythrodermic psoriasis, who for the last 3 months has resumed alcohol use of approximately 3 beers a night and then over the 01/12/19, weekend both her and her went on an alcoholic binge. Please see [facility] for full details. She had fallen approximately 2 months prior. She had been self-treating with triamcinolone which she had been getting for her psoriasis, but stopped about 3 weeks ago as it seemed to be improving. Her initial workup was significant for leukocytosis of 12.6, a CRP of 56.8, a total bilirubin of 1.9 (with increase to 2.6 on hospital day #2), AST of 59, and INR of 1.17. She was calculated to have a MELD score of 11. She was started on diuretics and the swelling in her abdomen and legs improved. She had a negative hepatitis panel. She was seen in consultation by both Wound Care and Infectious Disease. They recommended Santyl with daily dressing changes. Culture of the superficial wound did ultimately grow Pseudomonas aeruginosa, Citrobacter braakii, and Staphylococcus schleiferi, which were thought to be colonization and not active infection by Infectious Disease who recommended continued wound care and no initiation of antibiotics. Michelle would report that she last saw Dr.Karen Hurst of [facility] and Marielle Dubon, nurse practitioner of [facility] approximately in August before she started drinking again, but she has never had a paracentesis. She does seem to have had perhaps an EGD in August, concerns for swallowing issues, but she does not recall anything about esophageal varices and denies any vomiting of blood. She was offered social work consult and attested that she and her would quit on her own in terms of alcohol use. It was emphasized to her that it is setting her up for a disaster if she continues to drink alcohol. She was significantly hypokalemic with initial potassium of 2.4 and on day of discharge magnesium was checked, it was 1.2. She was given 4 g of that and was started on an oral supplementation. She will need very close followup with Dr. Tay and [facility] providers. Creatinine on admission was 0.5 and on discharge 0.49. Sodium was 127 on admission and 133 on discharge. DISCHARGE MEDICATIONS: Include: 1. Santyl 1 application daily (new). 2. Folic acid 1 mg daily (new). 3. Lasix 40 mg daily (new). 4. Magnesium oxide 500 mg daily (new). 5. Zantac 300 mg daily. 6. Spironolactone 100 mg p.o. daily (new). 7. Thiamine 100 mg p.o. daily (new). 8. Triamcinolone 0.1% cream. FOLLOWUP: The patient should follow up with Dr. Tay within [address] Sophia Hurst or [facility] Huerta NP, also within 1 to 2 weeks. She was seen also by Dr. Ranjan Telles who had examined the wound and was recommended continued care at the wound clinic. DIET: Dietary recommendations on discharge include low sodium, but high protein and otherwise nutrition is important. DISPOSITION: Home. CONDITION: Guarded. TIME SPENT ON DISCHARGE: 45 minutes. [id number]/[facility] #: [id number] MTDD
== END 2019-01-09 16:10 | disposition home or self-care (01) | DRG 280 ==
LOC: ED 11:10 → MED 14:33
PROVIDERS: ADMIT Internal Medicine; ATTEND Internal Medicine
DX: K70.31 Alcoholic cirrhosis of liver with ascites (principal); L97.929 Non-pressure chronic ulcer of unspecified part of left lower leg with unspecified severity; E87.1 Hypo-osmolality and hyponatremia; Y90.9 Presence of alcohol in blood, level not specified; L40.8 Other psoriasis; S81.812A Laceration without foreign body, left lower leg, initial encounter; W17.89XA Other fall from one level to another, initial encounter; K21.9 Gastro-esophageal reflux disease without esophagitis; E87.6 Hypokalemia; K80.20 Calculus of gallbladder without cholecystitis without obstruction; F10.10 Alcohol abuse, uncomplicated; M85.80 Other specified disorders of bone density and structure, unspecified site; Z82.3 Family history of stroke; Z80.3 Family history of malignant neoplasm of breast; Z98.51 Tubal ligation status; Z82.49 Family history of ischemic heart disease and other diseases of the circulatory system; Z87.891 Personal history of nicotine dependence; Z80.49 Family history of malignant neoplasm of other genital organs; Y92.009 Unspecified place in unspecified non-institutional (private) residence as the place of occurrence of the external cause
CPT/HCPCS: 36415; 74176; 80048; 80053; 80074; 82140; 83735; 83880; 85025; 85610; 85730; 86140; 87070; 87077; 87186; 87205; 87640; 87641; 99284; A9270-GY; J1650; J1940; J3411; J3480

== ENCOUNTER 2019-03-19 11:18 | Inpatient (IN) | payer BC ==
--- OUTSIDE RECORDS SUMMARY | 2019-03-19 11:28 | XMS REPORT | Summary of Care ---
:1955 Author Organization [facility] Address [address] [facility] [place] [address] Care Team Providers Name Role Phone Stefanie Tay MD Primary Care Provider Reason for Visit Reason Comments Follow-up Follow-up to recent labs. Encounter Details Date Type Department Care Team Description 03/13/2019 Office Visit [facility], Alcoholic cirrhosis Gastroenterology/Hepa Marielle Isbell NP of liver with ascites tology 1 [facility] (HCC) (Primary Dx) [address] [facility] [place] [address] [place] [address] Allergies Active Allergy Reactions Severity Noted Date Comments Penicillins Other 2018 Has not been able to take since she was tx with it as a child, Has no reaction at all documented as of this encounter (statuses as of 03/13/2019) Medications Medication Sig Dispensed Refills Start Date End Date Status triamcinolone by Topical 0 Active (KENALOG,ARISTOCORT) route TWICE 0.1 % Apply DAILY. externally Cream ranitidine (ZANTAC) Take 300 mg 30 Tab 11 09/05/2018 Active 300 MG Oral by mouth TabIndications: DAILY. Esophageal candidiasis (HCC), Gastropathy foliC acid 1 MG Oral Take 1 mg by 0 Active Tab mouth DAILY. Magnesium Oxide 500 Take 1 Tab by 0 Active MG (LAX) Oral Tab mouth DAILY. thiamine (VITAMIN Take 100 mg 0 Active B1) 100 MG Oral Tab by mouth DAILY. Spironolactone 100 Take 1 Tab by 30 Tab 11 01/14/2019 Active MG Oral Tab mouth DAILY. potassium chloride TAKE 1 TABLET 60 Tab 5 02/17/2019 Active (K-TAB) 10 MEQ Oral BY MOUTH Tab CR TWICE A DAY Baclofen 5 MG Oral Take 5 mg by 60 Tab 0 03/06/2019 Active TabIndications: mouth THREE Cirrhosis of liver TIMES DAILY. with ascites, unspecified hepatic cirrhosis type (HCC) OXYcodone Take 0.5 Tabs 20 Tab 0 03/06/2019 Active (OXY-IR,OXY-FAST) 5 by mouth TWO MG Oral TIMES DAILY TabIndications: NEEDED Cirrhosis of liver (back pain). with ascites, Max Daily unspecified hepatic Amount: 5 mg. cirrhosis type (HCC) lactulose (CEPHULAC) Take 15 mL by 900 mL 0 03/13/2019 Active 10 GM/15ML Oral mouth TWICE Solution DAILY. spironolactone Take 1 Tab by 30 Tab 0 03/13/2019 Active (ALDACTONE) 25 MG mouth DAILY. Oral Tab furosemide (LASIX) Take 1.5 Tabs 45 Tab 0 03/13/2019 Active 20 MG Oral Tab by mouth DAILY. furosemide (LASIX) Take 1 Tab by 30 Tab 11 01/14/2019 03/13/2019 Discontinued 40 MG Oral Tab mouth DAILY. 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 Alcoholic hepatitis with ascites 10/01/2017 Overview: Ultrasound at [facility] 09/16 Psoriasis 09/04/2016 Overview: Followed by Dr Dr Lerma documented as of this encounter (statuses as of 03/13/2019) Resolved Problems Problem Noted Date Resolved Date Elevated LFTs 09/04/2016 08/08/2018 documented as of this encounter (statuses as of 03/13/2019) Immunizations Name Administration Dates Next Due Influenza (IM) Preservative Free 2018 documented as of this encounter Social History Tobacco Use Types Packs/Day Years Used Date Former Smoker Smokeless Tobacco: Never Used Alcohol Use Drinks/Week oz/Week Comments Yes Sex Assigned at Date Recorded Not on file Job Start Date Occupation Industry Not on file Not on file Not on file Travel History Travel Start Travel End No recent travel history available. documented as of this encounter Last Filed Vital Signs Vital Sign Reading Time Taken Comments Blood Pressure 148/84 03/13/2019 12:45 PM EDT Pulse 78 03/13/2019 12:45 PM EDT Temperature 36.2 03/13/2019 12:45 PM EDT C (97.1 F) Respiratory Rate - - Oxygen Saturation - - Inhaled Oxygen Concentration - - Weight 52.2 kg (115 lb) 03/13/2019 12:45 PM EDT Height 160 cm (5' 3") 03/13/2019 12:45 PM EDT Body Mass Index 20.37 03/13/2019 12:45 PM EDT documented in this encounter Patient Instructions Patient InstructionsMarielle Dubon NP - 03/13/2019 12:40 PM EDT1. Additional lab today 2. Continue the furosemide and spironolactone, will increase the doses, will go to 30mg (1 and 1/2 tab) of Furosemide and 125mg ( one 100mg and one 25 mg tab) of Spironolactone 3. Will start Lactulose twice daily 4. Follow up in 1 month, with labs a few days prior Thank you for choosing the [facility] for your needs today! -Marielle Dubon N.P. , Please call if you need to cancel or change your appt. time. Thank you for choosing [facility] for your health care needs, and for consulting with [facility] today. You may receive a survey following this visit, or after an upcoming hospital stay. As easy as it is to feel overloaded with surveys, we are required to send them out randomly and they do provide important feedback so that we may serve your needs in the best way. Please do take the few minutes required to complete the survey if you receive one. We get them too, after seeing the doctor, and they only take a few minutes to complete. documented in this encounter Progress Notes Marielle Dubon NP - 03/13/2019 12:40 PM EDT PATIENT:Michelle Dupont : 1955 DATE OF SERVICE:03/13/2019 Chief Complaint Patient presents with Follow-up Follow-up to recent labs. REFERRING PROVIDER: Stefanie Tay PRIMARY CARE PHYSCIAN: Stefanie Tay SUBJECTIVE: Michelle Dupont is a very pleasant 63-y.o. female who presents in follow-up of cirrhosis. Hospitalized in December with ascites. Has been restarted on her diuretics, and is still taking them consistently. Her lower extremity edema has resolved however she continues with mild ascites. She continues to avoid alcohol. Most recent MELD is 13. There have been no fevers, chills, night sweats, weight loss, melena, hematochezia, hematemesis, confusion, systemic pruritis, easy bruising, dysuria , pyuria or hematuria. History reviewed. No pertinent past medical history. Past Surgical History: Procedure Laterality Date EGD N/A 07/30/2018 Procedure: ENDOSCOPY UPPER GI; Surgeon: Edwin Serna DO; Location: [facility] MAIN OR Social History Socioeconomic History Marital status: Spouse name: Not on file Number of children: Not on file Years of education: Not on file Highest education level: Not on file Occupational History Not on file Social Needs Financial resource strain: Not on file Food insecurity: Worry: Not on file Inability: Not on file Transportation needs: Medical: Not on file Non-medical: Not on file Tobacco Use Smoking status: Former Smoker Smokeless tobacco: Never Used Substance and Sexual Activity Alcohol use: Yes Drug use: No Sexual activity: Yes Partners: Male Lifestyle Physical activity: Days per week: Not on file Minutes per session: Not on file Stress: Not on file Relationships Social connections: Talks on phone: Not on file Gets together: Not on file Attends protestant service: Not on file Active member of club or organization: Not on file Attends meetings of clubs or organizations: Not on file Relationship status: Not on file Intimate partner violence: Fear of current or ex partner: Not on file Emotionally abused: Not on file Physically abused: Not on file Forced sexual activity: Not on file Other Topics Concern Not on file 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 foliC acid 1 MG Oral Tab Take 1 mg by mouth DAILY. furosemide (LASIX) 20 MG Oral Tab Take 1.5 Tabs by mouth DAILY. lactulose (CEPHULAC) 10 GM/15ML Oral Solution Take 15 mL by mouth TWICE DAILY. Magnesium Oxide 500 MG (LAX) Oral Tab Take 1 Tab by mouth DAILY. OXYcodone (OXY-IR,OXY-FAST) 5 MG Oral Tab Take 0.5 Tabs by mouth TWO TIMES DAILY NEEDED (back pain). Max Daily Amount: 5 mg. potassium chloride (K-TAB) 10 MEQ Oral Tab CR TAKE 1 TABLET BY MOUTH TWICE A DAY ranitidine (ZANTAC) 300 MG Oral Tab Take 300 mg by mouth DAILY. spironolactone (ALDACTONE) 25 MG Oral Tab Take 1 Tab by mouth DAILY. Spironolactone 100 MG Oral Tab Take 1 Tab by mouth DAILY. thiamine (VITAMIN B1) 100 MG Oral Tab Take 100 mg by mouth DAILY. triamcinolone (KENALOG,ARISTOCORT) 0.1 % Apply externally Cream by Topical route TWICE DAILY. No current facility-administered medications for this visit. REVIEW OF SYSTEMS Negative, except that which is mentioned in the history of present illness. OBJECTIVE: BP 148/84 | Pulse 78 | Temp 97.1 F (36.2 C) | Ht 5' 3" (1.6 m) | Wt 115 lb (52.2 kg) | BMI 20.37 kg/m PHYSICAL EXAM GENERAL: alert, oriented, no acute distress. SKIN: rash noted on entire body. HEENT: sclera normal, anicteric, mucous membrane moist, conjunctiva pink and pale, normal dentition. NECK: supple. LUNGS: clear to auscultation bilaterally. HEART: regular rhythm, no murmurs, no gallops, no rubs. EXTREMITIES: no clubbing, cyanosis, or edema. NEUROLOGICAL: alert and oriented x3. ABDOMEN: general exam: distended, normal bowel sounds, nontender, liver: non tender and ascites. RECTAL: exam deferred. IMPRESSION/PLAN ICD-9-CM ICD-10-CM 1. Alcoholic cirrhosis of liver with ascites (HCC) 571.2 K70.31 AMMONIA COMPREHENSIVE METABOLIC PANEL AMMONIA COMPREHENSIVE METABOLIC PANEL Patient Instructions 1. Additional lab today 2. Continue the furosemide and spironolactone, will increase the doses, will go to 30mg (1 and 1/2 tab) of Furosemide and 125mg ( one 100mg and one 25 mg tab) of Spironolactone 3. Will start Lactulose twice daily 4. Follow up in 1 month, with labs a few days prior Thank you for choosing the [facility] for your needs today! -Marielle Dubon N.P. , Please call if you need to cancel or change your appt. time. Thank you for choosing [facility] for your health care needs, and for consulting with [facility] today. You may receive a survey following this visit, or after an upcoming hospital stay. As easy as it is to feel overloaded with surveys, we are required to send them out randomly and they do provide important feedback so that we may serve your needs in the best way. Please do take the few minutes required to complete the survey if you receive one. We get them too, after seeing the doctor, and they only take a few minutes to complete. AUTHOR: Marielle Dubon NP 03/13/2019 13:32 documented in this encounter Plan of Treatment Date Type Specialty Care Team Description 03/27/2019 Office Visit Internal Medicine Stefanie Tay MD [address] [place] [address] [phone] 04/14/2019 Office Visit Gastroenterology Marielle Dubon NP [address] [facility] [place] [address] [phone] Name Type Priority Associated Diagnoses Date/Time AMMONIA Lab STAT Alcoholic cirrhosis of 03/13/2019 1:22 PM liver with ascites EDT (HCC) COMPREHENSIVE METABOLIC Lab Routine Alcoholic cirrhosis of 03/13/2019 1: 22 PM PANEL liver with ascites EDT (HCC) Name Type Priority Associated Diagnoses Order Schedule AMMONIA Lab STAT Alcoholic cirrhosis of Expected: 03/13/2019 liver with ascites (Approximate), (HCC) Expires: 10/09/2019 COMPREHENSIVE METABOLIC Lab Routine Alcoholic cirrhosis of Expected: 2018 PANEL liver with ascites (Approximate), (HCC) Expires: 05/13/2019 Health Maintenance Due Date Last Done Comments PAP SMEAR 1955 PNEUMOCOCCAL 0-64 YRS (1 of 1 1960 - PPSV23) HIV SCREENING 1969 HEPATITIS C SCREENING 1994 MAMMOGRAM (SCREENING) 1994 COLONOSCOPY SCREENING 2004 ZOSTER IMMUNIZATION SERIES (1 2004 of 2) INFLUENZA VACCINE (#1) 2019 2018 DEPRESSION SCREENING 01/18/2020 01/17/2019 LIPID DISORDER SCREENING 03/06/2020 03/06/2019, 06/17/2018 EGD (ESOPHAGODUODENOSCOPY) 07/30/2020 07/30/2018, 07/30/2018 HPV IMMUNIZATION SERIES Aged Out No longer eligible based on patient's age to complete this topic MENINGOCOCCAL VACCINE IMM Aged Out No longer eligible based on patient's age to complete this topic documented as of this encounter Goals Goal Patient Goal Associated Recent Patient-Stated? Author Type Problems Progress Blood Pressure Blood Pressure 148/84 No Maggi, < 150/90 (03/13/2019 MD Stefanie 12:45 PM EDT) Note: This is an individualized treatment (blood pressure) goal for Michelle Dupont: Displayed above (on the left) is your goal for blood pressure control. Your most recent blood pressure is also shown above, on the right. You should try to achieve blood pressures that are lower than your goal listed above (on the left). Take all prescribed medications as directed Self-management Stefanie Viera MD Note: This is an individualized self-management goal for Michelle Dupont: Please take all prescribed medications as directed. 1. Do not skip doses. If you cannot afford your medications, talk with your doctor. 2. Use a pill reminder system such as a pill box if needed. Your pharmacist can help you with this. 3. Contact your Pharmacy 5 days before your medication runs out. If you cannot take your medications for any reasons, talk with your doctor. 4. Please bring all of your medication bottles and inhalers (or a list of all your medications/inhalers) with you to every visit. Potential barriers to meeting all of your care plan goals will continue to be addressed on an ongoing basis. documented as of this encounter Results Not on filedocumented in this encounter Visit Diagnoses Diagnosis Alcoholic cirrhosis of liver with ascites (HCC) - Primary Alcoholic cirrhosis of liver documented in this encounter Insurance Payer Benefit Plan / Subscriber ID Effective Dates Phone Address Type Group ROJELIO VILLASENOR [employer] xxxxxxxxxxxx 2017-Present [employer] documented as of this encounter
--- OUTSIDE RECORDS SUMMARY | 2019-03-19 11:28 | XMS REPORT | Summary of Care ---
:1955 Author Organization [facility] Address [address] [address] Care Team Providers Name Role Phone Stefanie Tay MD Primary Care Provider Reason for Visit Reason Comments Back Pain states discuss last visit but getting worse. Difficult to walk. C/o lower back pain radiating into right leg. 3-4 months duration. OTC not working. Can't sleep. Encounter Details Date Type Department Care Team Description 03/06/2019 Office Visit [place] [facility] Stefanie Tay MD Cirrhosis of liver with ascites, unspecified hepatic cirrhosis type (HCC) ( Primary Dx); Medicine [address] [facility] Back pain, unspecified back location, unspecified back pain laterality, unspecified chronicity [address] [place] [address] [place] [address] [phone] Allergies Active Allergy Reactions Severity Noted Date Comments Penicillins Other 2018 Has not been able to take since she was tx with it as a child, Has no reaction at all documented as of this encounter (statuses as of 03/06/2019) Medications Medication Sig Dispensed Refills Start Date End Date Status triamcinolone by Topical 0 Active (KENALOG,ARISTOCORT route TWICE ) 0.1 % Apply DAILY. externally Cream ranitidine (ZANTAC) Take 300 mg 30 Tab 11 09/05/2018 Active 300 MG Oral by mouth TabIndications: DAILY. Esophageal candidiasis (HCC), Gastropathy foliC acid 1 MG Take 1 mg by 0 Active Oral Tab mouth DAILY. Magnesium Oxide 500 Take 1 Tab 0 Active MG (LAX) Oral Tab by mouth DAILY. thiamine (VITAMIN Take 100 mg 0 Active B1) 100 MG Oral Tab by mouth DAILY. furosemide (LASIX) Take 1 Tab 30 Tab 11 01/14/2019 Active 40 MG Oral Tab by mouth DAILY. Spironolactone 100 Take 1 Tab 30 Tab 11 01/14/2019 Active MG Oral Tab by mouth DAILY. potassium chloride TAKE 1 60 Tab 5 02/17/2019 Active (K-TAB) 10 MEQ Oral TABLET BY Tab CR MOUTH TWICE A DAY [facility] MAGNESIUM OXIDE TAKE 1 90 Tab 3 02/28/2019 Active 500 MG Oral Tab TABLET BY MOUTH EVERY DAY Baclofen 5 MG Oral Take 5 mg by 60 Tab 0 03/06/2019 Active TabIndications: mouth THREE Cirrhosis of liver TIMES DAILY. with ascites, unspecified hepatic cirrhosis type (HCC) OXYcodone Take 0.5 20 Tab 0 03/06/2019 Active (OXY-IR,OXY-FAST) 5 Tabs by MG Oral mouth TWO TabIndications: TIMES DAILY Cirrhosis of liver NEEDED with ascites, (back pain). unspecified hepatic Max Daily cirrhosis type Amount: 5 (HCC) mg. Baclofen 5 MG Oral Take 5 mg by 60 Tab 0 01/27/2019 Discontinued Tab mouth THREE 9 (Reorder) TIMES DAILY. documented as of this encounter (statuses as of 03/06/2019) Active Problems Problem Noted Date Esophageal candidiasis 08/08/2018 Gastropathy 08/08/2018 Alcoholic hepatitis with ascites 10/01/2017 Overview: Ultrasound at [facility] 09/16 Psoriasis 09/04/2016 Overview: Followed by Dr Dr Lerma documented as of this encounter (statuses as of 03/06/2019) Resolved Problems Problem Noted Date Resolved Date Elevated LFTs 09/04/2016 08/08/2018 documented as of this encounter (statuses as of 03/06/2019) Immunizations Name Administration Dates Next Due Influenza [...] Sign Reading Time Taken Comments Blood Pressure 139/67 03/06/2019 2:33 PM EDT Pulse 100 03/06/2019 2:33 PM EDT Temperature - - Respiratory Rate - - Oxygen Saturation 98% 03/06/2019 2:33 PM EDT Inhaled Oxygen Concentration - - Weight 54.4 kg (120 lb) 03/06/2019 2:33 PM EDT Height 160 cm (5' 3") 03/06/2019 2:33 PM EDT Body Mass Index 21.26 03/06/2019 2:33 PM EDT documented in this encounter Patient Instructions Patient InstructionsStefanie Tay MD - 03/06/2019 2:20 PM EDTPlan For the backpain - - Rest / Warm / cool paks Rubs- Icy hot / biofreeze Very low dose narcotic only - 2.5 mg oxycodone - twice daily - May increase to 3x daily if not knocked out Avoid ibuprfen / aleve/ Tylenol - If you get weaker or have more pain - -present to the ER documented in this encounter Progress Notes Stefanie Tay MD - 03/06/2019 2:20 PM EDT NAME:Michelle Dupont 1955: 1955 ENC Date: 03/06/2019 CC: Chief Complaint Patient presents with Back Pain states discuss last visit but getting worse. Difficult to walk. C/o lower back pain radiating intoright leg. 3-4 months duration. OTC not working. Can't sleep. Michelle Dupont is a 63-y.o. female established in the fall 2017 Noted then to have severe psoriasis and cirrhoisis of the liver with complications of that condition - Patient improved after cessation of alcohol but had recent relapse - Seen at [facility] 01/17 Also wound on lower extremeties followed by Dr Telles 10/18 Back pain - has been present for some time - but worse lately Lower back worst and radiates down the right leg to above the knee - Ct scan from 01/17 at [facility] shows compression fracture L2 and L4 - Taking a lot of aleve- Has been able to go to work ! Cannot retire secondary to financial considerations - has been at job 40 years- at home to help Has not follow up with dermatology or with GI here - Ran out of Furosemide- Taking potassium Abdomen is not going down Current Outpatient Medications Medication Sig Baclofen 5 MG Oral Tab Take 5 mg by mouth THREE TIMES DAILY. [facility] MAGNESIUM OXIDE 500 MG Oral Tab TAKE 1 TABLET BY MOUTH EVERY DAY foliC acid 1 MG Oral Tab Take 1 mg by mouth DAILY. furosemide (LASIX) 40 MG Oral Tab Take 1 Tab by mouth DAILY. Magnesium Oxide 500 MG (LAX) Oral [...] Tab Take 300 mg by mouth DAILY. Spironolactone 100 MG Oral Tab Take 1 Tab by mouth DAILY. thiamine (VITAMIN B1) 100 MG Oral Tab Take 100 mg by mouth DAILY. triamcinolone (KENALOG,ARISTOCORT) 0.1 % Apply externally Cream by Topical route TWICE DAILY. No current facility-administered medications for this visit. Patient Active Problem List Diagnosis Date Noted Esophageal candidiasis (HCC) 08/08/2018 Gastropathy 08/08/2018 Alcoholic hepatitis with ascites 10/01/2017 Ultrasound at [facility] 09/16 Psoriasis 09/04/[address] Lerma No family history on file. No cardiopulmonary symptoms No upper or lower GI complaints No urinary tract symptoms. No bruising/ bleeding. No neurological complaints . No insomnia.+ . Social History Tobacco Use Smoking status: Former Smoker Smokeless tobacco: Never Used Substance Use Topics Alcohol use: Yes Drug use: No OBJECTIVE: Very frail and sickly - BP 139/67 | Pulse 100 | Ht 5' 3" (1.6 m) | Wt 120 lb (54.4 kg) | SpO2 98% | BMI 21.26 kg/m . Heent neg Skin diffusely Reddened - Lungs Clear CV rrr Abd soft, nontender, no organomegaly Back - Has lost curve- nontender to palpation over the sacroiliac joint Mild tender to palpation over the spine - sking diffusely red- Shallow open wound over the right lateral neck Legs - muscles atrophied - skin ecchymotic Abdomen - distended - soft nontender to palpation ; pedal pulses intact Neuro: intellect intact ; motor - very frail - needed help to get around A/P ICD-9-CM ICD-10-CM 1. Cirrhosis of liver with ascites, unspecified hepatic cirrhosis type (HCC) 571.5 K74.60 CBC WITH DIFFERENTIAL R18.8 COMPREHENSIVE METABOLIC PANEL LIPID PROFILE PROTHROMBIN TIME PARTIAL THROMBOPLASTIN TIME MAGNESIUM LEVEL Baclofen 5 MG Oral Tab OXYcodone (OXY-IR,OXY-FAST) 5 MG Oral Tab MAGNESIUM LEVEL PARTIAL THROMBOPLASTIN TIME PROTHROMBIN TIME LIPID PROFILE COMPREHENSIVE METABOLIC PANEL CBC WITH DIFFERENTIAL 2. Back pain, unspecified back location, unspecified back pain laterality, unspecified chronicity 724.5 M54.9 Very frail - metabolic status not known - Clearly ascites present - - abdomen not very tender so SPB not strongly suspected - Will check blood work - If getting worse belongs in hospital - is probably hospital level now- First check blood work - Modest dose of narcotics given for back pain Have offered to give excuse for work and help her seek disability I- Follow up with me and GI if can stay out of Hospital Patient Instructions Plan For the backpain - - Rest / Warm / cool paks Rubs- Icy hot / biofreeze Very low dose narcotic only - 2.5 mg oxycodone - twice daily - May increase to 3x daily if not knocked out Avoid ibuprfen / aleve/ Tylenol - If you get weaker or have more pain - -present to the ER AUTHOR: Stefanie Tay MD 18:26 03/06/2019 documented in this encounter Plan of Treatment Date Type Specialty Care Team Description 03/13/2019 Office Visit Gastroenterology Marielle Dubon, PROGRESSIVE CARE NURSE [address] [address] [phone] 03/27/2019 Office Visit Internal Medicine Stefanie Tay MD [address] [place] [address] [phone] Name Type Priority Associated Diagnoses Date/Time CBC WITH DIFFERENTIAL Lab Routine Cirrhosis of liver with 03/06/2019 4:45 PM ascites, unspecified EDT hepatic cirrhosis type (HCC) COMPREHENSIVE METABOLIC Lab Routine Cirrhosis of liver with 03/06/2019 4: 45 PM PANEL ascites, unspecified EDT hepatic cirrhosis type (HCC) LIPID PROFILE Lab Routine Cirrhosis of liver with 03/06/2019 4:45 PM ascites, unspecified EDT hepatic cirrhosis type (HCC) PROTHROMBIN TIME Lab Routine Cirrhosis of liver with 03/06/2019 4:45 PM ascites, unspecified EDT hepatic cirrhosis type (HCC) PARTIAL THROMBOPLASTIN TIME Lab Routine Cirrhosis of liver with 03/06/2019 4:45 PM ascites, unspecified EDT hepatic cirrhosis type (HCC) MAGNESIUM LEVEL Lab Routine Cirrhosis of liver with 03/06/2019 4:45 PM ascites, unspecified EDT hepatic cirrhosis type (HCC) Name Type Priority Associated Diagnoses Order Schedule CBC WITH DIFFERENTIAL Lab Routine Cirrhosis of liver with Expected: 2018 ascites, unspecified (Approximate), hepatic cirrhosis type Expires: 09/02/2019 (HCC) COMPREHENSIVE METABOLIC Lab Routine Cirrhosis of liver with Expected: 03/06 PANEL ascites, unspecified (Approximate), hepatic cirrhosis type Expires: 09/02/2019 (HCC) LIPID PROFILE Lab Routine Cirrhosis of liver with Expected: 03/06/2019 ascites, unspecified (Approximate), hepatic cirrhosis type Expires: 09/02/2019 (HCC) PROTHROMBIN TIME Lab Routine Cirrhosis of liver with Expected: 03/06/2019 ascites, unspecified (Approximate), hepatic cirrhosis type Expires: 03/06/2020 (HCC) PARTIAL THROMBOPLASTIN TIME Lab Routine Cirrhosis of liver with Expected: 03/06/2019 ascites, unspecified (Approximate), hepatic cirrhosis type Expires: 03/06/2020 (HCC) MAGNESIUM LEVEL Lab Routine Cirrhosis of liver with Expected: 03/06/2019 ascites, unspecified (Approximate), hepatic cirrhosis type Expires: 09/02/2019 (HCC) Health Maintenance Due Date Last Done Comments PAP SMEAR 1955 PNEUMOCOCCAL 0-64 YRS (1 of 1 1960 - PPSV23) HIV SCREENING 1969 HEPATITIS C SCREENING 1994 MAMMOGRAM (SCREENING) 1994 COLONOSCOPY SCREENING 2004 ZOSTER IMMUNIZATION SERIES (1 2004 of 2) INFLUENZA VACCINE (#1) 2019 2018 LIPID DISORDER SCREENING 06/17/2019 06/17/2018 DEPRESSION SCREENING 01/18/2020 01/17/2019 EGD (ESOPHAGODUODENOSCOPY) 07/30/2020 07/30/2018, 07/30/2018 HPV IMMUNIZATION SERIES Aged Out No longer eligible based on patient's age to complete this topic MENINGOCOCCAL VACCINE IMM Aged Out No longer eligible based on patient's age to complete this topic documented as of this encounter Goals Goal Patient Goal Associated Recent Patient-Stated? Author Type Problems Progress Blood Pressure Blood Pressure 139/67 No Maggi, < 150/90 (03/06/2019 MD Stefanie 2:33 PM EDT) Note: This is an individualized [...] filedocumented in this encounter Visit Diagnoses Diagnosis Cirrhosis of liver with ascites, unspecified hepatic cirrhosis type (HCC) - Primary Back pain, unspecified back location, unspecified back pain laterality, unspecified chronicity documented in this encounter Insurance Payer Benefit Plan / Subscriber ID Effective Dates Phone Address Type Group [employer] xxxxxxxxxxxx 2017-Present [employer] documented as of this encounter
--- NOTE | 2019-03-19 12:17 | ED ---
Complex/Multi-Sys Presentation - HPI Summary HPI Summary: Pt is a 63 y/o F presenting to the ED with a chief complaint of back pain. She states she was here in August of this year where she had fluid drained that she had retained from alcoholism, and she has not had a drink since being d/eleni. The back pain began a couple of months ago in her R lower back, and has associated paresthesia in her R toes and numbness in her toes and fingertips. She is primarily here to get the pain under control, as she states the Hydrocodone she was given only made it worse. The pain is described as lightning bolts. She notes recent medication change about 1 month ago, when she started all of her medications. She also notes a fog over her L eye, constipation for two weeks, 3 episodes of emesis yesterday 03/18/19, and one episode of emesis today. She denies any injury to her back, hematuria, abd pain , and numbness in her groin or legs. She is able to walk. - History Of Current Complaint Chief Complaint: EDGeneral Time Seen by Provider: 03/19/19 11:56 Hx Obtained From: Patient Onset/Duration: Gradual Onset, Lasting Weeks, Still Present Timing: Constant, Weeks Severity Currently: Moderate Severity Initially: Moderate Associated Signs And Symptoms: Positive: Vomiting, Back Pain, Recent Medication Changes. Negative: Abdominal Pain, Recent Trauma, Remote Trauma - Allergies/Home Medications Allergies/Adverse Reactions: Allergies Allergy/AdvReac Type Severity Reaction Status Date / Time No Known Allergies Allergy Verified 03/19/19 11:25 Home Medications: Home Medications Baclofen TAB* [Lioresal TAB*] 5 mg PO TID 03/19/19 [History Confirmed 03/19/19] Furosemide TAB* [Lasix TAB*] 30 mg PO DAILY 03/19/19 [History Confirmed 03/19/19 ] Lactulose* 15 ml PO BID 03/19/19 [History Confirmed 03/19/19] Potassium Chlor TAB* [Klor Con ER TAB*] 10 meq PO BID 03/19/19 [History Confirmed 03/19/19] Spironolactone (NF) [Spironolactone 50 MG (NF)] 100 mg PO DAILY 03/19/19 [ History Confirmed 03/19/19] oxyCODONE TAB* [Roxycodone TAB 5 mg*] 2.5 mg PO Q4H PRN 03/19/19 [History Confirmed 03/19/19] PMH/Surg Hx/FS Hx/Imm Hx Previously Healthy: Yes Endocrine/Hematology History: Denies: Hx Diabetes, Hx Thyroid Disease Cardiovascular History: Denies: Hx Hypertension Respiratory History: Denies: Hx Asthma, Hx Chronic Obstructive Pulmonary Disease (COPD) GI History: Reports: Hx Gastroesophageal Reflux Disease Denies: Hx Ulcer Sensory History: Reports: Hx Contacts or Glasses Denies: Hx Hearing Aid, Other Sensory Impairments Opthamlomology History: Reports: Hx Contacts or Glasses Denies: Other Sensory Impairments Psychiatric History: Reports: Hx Substance Abuse Infectious Disease History: No Infectious Disease History: Denies: Hx Hepatitis, Hx Human Immunodeficiency Virus (HIV), Hx of Known/ Suspected MRSA, Traveled Outside the [place] in Last 30 Days - Family History Known Family History: Positive: Cardiac Disease - [place] - father, Other - [place] - mother - Social History Alcohol Use: 03/19/19 - states has not drank since august, but here in december b/c drinking Hx Substance Use: No Substance Use Type: Reports: None Hx Tobacco Use: Yes Smoking Status (MU): Former Smoker Type: Cigarettes Review of Systems Positive: Other - medication changes Positive: Other - "fog over L eye" Positive: Vomiting, Other - constipation. Negative: Abdominal Pain Negative: hematuria Positive: Myalgia - back pain Positive: Paresthesia, Numbness - positive: toes and fingertips. negative: legs and groin. All Other Systems Reviewed And Are Negative: Yes Physical Exam - Summary Physical Exam Summary: Constitutional: chronically ill appearing Skin: Warm, diffuse scaley patches of skin HENT: Normocephalic; Atraumatic Eyes: Conjunctiva normal Neck: Musculoskeletal ROM normal neck. (-) JVD, (-) Stridor, (-) Nuchal rigidity Cardio: Rhythm regular, rate normal, Heart sounds normal; Intact distal pulses; Radial pulses are 2+ and symmetric. (-) Murmur Pulmonary/Chest wall: Effort normal. (-) Respiratory distress, (-) Wheezes, (-) Rales Abd: Soft, mild diffuse tenderness, +distended, (-) Guarding, (-) Rebound Musculoskeletal: Thin extremities, Back: + lower lumbar tenderness, + R sided paraspinal lumbar tenderness, pain w R SLR. Pain w ambulation. Lymph: (-) Cervical adenopathy Neuro: Alert, Oriented x3 Psych: Mood and affect Normal Triage Information Reviewed: Yes Vital Signs On Initial Exam: Initial Vitals Temp Pulse Resp BP Pulse Ox 98.8 F 107 14 137/109 94 03/19/19 11:21 03/19/19 11:21 03/19/19 11:21 03/19/19 11:21 03/19/19 11:21 Vital Signs Reviewed: Yes Diagnostics - Vital Signs Vital Signs Temp Pulse Resp BP Pulse Ox 03/19/19 11:21 98.8 F 107 14 137/109 94 - Laboratory Result Diagrams: 03/19/19 13:13 03/19/19 19:11 Lab Statement: Any lab studies that have been ordered have been reviewed, and results considered in the medical decision making process. - CT CT a/p CT Interpretation Completed By: Radiologist Summary of CT Findings: 1. GALLSTONES, DISTENDED GALLBLADDER AND MILD GALLBLADDER WALL THICKENING RAISING THE POSSIBILITY OF ACUTE CHOLECYSTITIS. RECOMMEND CLINICAL CORRELATION AND CONSIDER ULTRASONOGRAPHY FOR FURTHER EVALUATION. 2. FINDINGS CONSISTENT WITH CIRRHOSIS. 3. INTERVAL RESOLUTION OF ASCITES. 4. MODERATE TO LARGE AMOUNT RETAINED STOOL. 5. NEW COMPRESSION FRACTURES OF THE T12 AND L1 VERTEBRAL BODIES. ED physician has reviewed this report. - Ultrasound Gallbladder US Ultrasound Interpretation Completed By: Radiologist Summary of Ultrasound Findings: The distended gallbladder contains dependent gallstones. There is no gallbladder wall thickening or pericholecystic fluid. No intra or extra hepatic biliary ductal dilatation is identified. If there is suspicion for cholecystitis, HIDA scan could be performed. ED physician has reviewed this report. Re-Evaluation - Re-Evaluation 1st re-eval Re-Evaluation Time: 15:01 Change: Unchanged Comment: I informed the pt of the results of her CT and labs including Na 123. Hx prior elevated bili, will check RUQ (does have mild RUQ tenderness on exam). Regarding new spinal fractures, will call NSGY. Unclear cause of Na 123, has been normal in past (does have hx EtOH use but denies present use). Complex Multi-Symp Course/Dx Course Of Treatment: 63-year-old female has a psoriasis, alcohol abuse and cirrhosis, lumbar compression fractures who presents with multiple complaints. - Patient reporting back pain, has a history of fractures, and radicular symptoms of shooting pains on her right leg. No new trauma however given patient's poor health, history of prior fractures and vague abdominal pain will assess her spine w imaging of the CT abdomen and pelvis. - regarding abdominal pain, patient reports constipation, no BM for 2 weeks, abdomen slightly distended on exam. Hx of cirrhosis, no infectious symptoms to suggest SBP. Check CT, labs, reassess - Diagnoses Provider Diagnoses: Lumbar compression fracture, Hyponatremia Discharge ED - Sign-Out/Discharge Documenting (check all that apply): Patient Departure - Discharge Plan Condition: Stable Disposition: ADMITTED TO [facility] - Billing Disposition and Condition Condition: STABLE Disposition: Admitted to [facility] - Attestation Statements Document Initiated by Scribe: Yes Documenting Scribe: Marlene Jain Provider For Whom [place] is Documenting (Include Credential): Navdeep Chappell MD. Scribe Attestation: IMarlene, scribed for Navdeep Chappell MD. on 03/19/19 at 2119. Scribe Documentation Reviewed: Yes Provider Attestation: The documentation as recorded by the scribe, Marlene Jain accurately reflects the service I personally performed and the decisions made by me, Navdeep Chappell MD. Status of Scribe Document: Viewed Consult Consult: [id number] Boo who will be following up with the pt. [id number] - I informed Dr. Franco of the pt's new compression fractures. He recommends an MRI of the lumbar and thoracic spine and admission.
[2019-03-19 13:24] LABS: ABS Eosinophils 0.3 10^3/ul (0-0.6); ABS Lymphocytes 1.8 10^3/ul (1.0-4.8); ABS Monocytes 1.4 10^3/ul (0-0.8); ABS Neutrophils 6.7 10^3/ul (1.5-7.7); Eosinophil % 2.7 %; Hematocrit 43 % (35-47); Hemoglobin 15.1 g/dL (12.0-16.0); Lymphocyte % 17.6 %; Mean Corpuscular HGB Conc 35 g/dL (31-36); Mean Corpuscular Hemoglobin 37 pg (27-31); Mean Corpuscular Volume 104 fL (80-97); Mean Platelet Volume 7.5 fL (7.4-10.4); Nucleated Red Blood Cells % 0.1; Platelet Count 278 10^3/uL (150-450); Red Blood Count 4.11 10^6 /uL (3.70-4.87); Red Cell Distribution Width 13 % (10-15); White Blood Count 10.2 10^3/uL (3.5-10.8)
[2019-03-19 13:40] LABS: Albumin 3.8 g/dL (3.2-5.2); Albumin/Globulin Ratio 1.2 (1-3); BUN/Creatinine Ratio 13.1 (8-20); Calcium 10.2 mg/dL (8.6-10.3); EGFR African American 68.3 (>60); EGFR Non-African American 56.5 (>60); Globulin 3.3 g/dL (2-4); Total Bilirubin 1.8 mg/dL (0.2-1.0); Total Protein 7.1 g/dL (6.4-8.9)
[2019-03-19] MEDS ORDERED: Iodixanol* (CONTRAST) 320 MG/ML 100 ML SDV IV ONE (13:59)
[2019-03-19] MEDS ORDERED: fentaNYL* 50 MCG/ML 2 ML VIAL (100 MCG VIAL) IV SLOW PU ONE (15:01)
[2019-03-19] MEDS ORDERED: NS 0.9% 1000 ML** 1,000 ML IV ONE (15:06)
[2019-03-19] MEDS ORDERED: Ondansetron INJ* 2 MG/ML VIAL IV PRN (17:20)
[2019-03-19] MEDS ORDERED: Acetaminophen TAB* 325 MG PO PRN (17:20)
[2019-03-19] MEDS ORDERED: Senna TAB 8.6 mg* TAB PO PRN (17:30)
[2019-03-19 19:33] LABS: BUN/Creatinine Ratio 13.6 (8-20); Calcium 9.5 mg/dL (8.6-10.3); EGFR African American 86.1 (>60); EGFR Non-African American 71.2 (>60); Potassium 4.8 mmol/L (3.5-5.0)
[2019-03-19] MEDS ORDERED: Al Hydrox/Mg Hydrox/Simet LIQ* 30 ML UDC PO PRN (19:59)
[2019-03-19] MEDS: Enoxaparin(*) 40 MG/0.4 ML SYR SUBCUT SCH (20:09)
[2019-03-19] MEDS: Morphine INJ* 2 MG/ML 1 ML SYRINGE (TWO MG - NEW SYRINGE VERSION) IV PRN (20:17)
[2019-03-19] MEDS: NS 0.9% 1000 ML** 1,000 ML IV SCH (20:21)
--- NOTE | 2019-03-19 21:03 | HP ---
CC: Dr. Stefanie Tay; Dr. Kriss Gibbons * ADMISSION HISTORY AND PHYSICAL: DATE OF ADMISSION: 03/19/19 PRIMARY CARE PHYSICIAN: Dr. Stefanie Tay. CONSULTING NEUROSURGEON: Dr. Kriss Gibbons. MY ATTENDING WHILE IN THE HOSPITAL: Dr. Bethanie Resendiz.* (DICTATED BY RADHA ADAN) CHIEF COMPLAINT: Back pain x2 months, worsening today. HISTORY OF PRESENT ILLNESS: Ms. Dupont is a 63-year-old female with past medical history significant for erythrodermic psoriasis, alcohol abuse, and cirrhosis who presents to the emergency department after she said she could not take the pain in her back anymore. She said she does not like going to doctors , but that she fell approximately 3 months ago and since then, has had worsening back pain, which radiates into her right leg with numbness and tingling. She also has numbness and tingling in her right hand. The patient has not had any other recent pain; however, she has been getting worsening constipation over the last several days after she was prescribed oxycodone for her back pain. She states it also makes her groggy. The patient has been having escalating doses of diuretics for her ascites and feels that her ascites is much better. The patient has not had any recent other trauma. The patient has not had any numbness or tingling in her perineal region. The patient denies fevers, chills, nausea, or vomiting. The patient's lower extremity wound , which she was previously hospitalized for, is improving greatly. The patient denies chest pain or shortness of breath. The patient does get dizzy on standing, which is frequent, but has not fallen recently. The patient still does feel unsteady on her feet, but she mainly relates this to pain. The patient has not been on any recent steroids systemically, but does use a large amount of topical steroid cream. The patient is not followed by anybody for her cirrhosis, but has been abstinent from alcohol for 3 months. The patient feels like her erythrodermic psoriasis is at her baseline. The patient has been having a low-salt diet, but has not been abstaining from added salt entirely. The patient recently had her spironolactone increased from 50 to 100 mg daily. She states she is still taking hydrochlorothiazide, but it is not prescribed to her. The patient is on Lasix 40 mg daily as well. In the emergency department, the patient was found to have compression fractures of T12 and L1, large amounts of stool in the colon, and a low sodium at 123. Due to these concerns, we were asked to evaluate the patient for admission to the hospital. PAST MEDICAL HISTORY: 1. Erythrodermic psoriasis. 2. Cirrhosis. 3. GERD. 4. History of alcohol abuse. 5. Lower extremity wound. PAST SURGICAL HISTORY: None. MEDICATIONS: 1. Furosemide 30 mg p.o. daily. 2. Spironolactone 100 mg p.o. daily. 3. Triamcinolone 1 application topically b.i.d. 4. Zantac 300 mg p.o. daily. 5. Folic acid 1 mg p.o. daily. 6. Thiamine 100 mg p.o. daily. 7. Magnesium oxide 400 mg p.o. daily. 8. Potassium chloride 10 mEq p.o. b.i.d. 9. Oxycodone 2.5 mg p.o. q.4 hours as needed. 10. Lactulose 50 mg p.o. b.i.d. 11 Baclofen 5 mg p.o. t.i.d. ALLERGIES: No known drug allergies. FAMILY HISTORY: The patient's mother had several cancers, but of head trauma. The patient's father of [place]. The patient has a brother who had an [place] and a sister who is healthy to her knowledge. SOCIAL HISTORY: The patient quit smoking 10 years ago and smoked from when she was 15 to when she was 53. The patient quit drinking 3 months ago and used to abuse alcohol. The patient denies illicit drug use. 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 The patient is and has 1 daughter who is healthy. REVIEW OF SYSTEMS: A 10-point review of systems was reviewed and is negative, except as above in the HPI. PHYSICAL EXAMINATION GENERAL: The patient is a 63-year-old female who appears stated age and is sitting comfortably in the bed, in no acute distress. VITAL SIGNS: Temperature 99.0, pulse rate 100, respiratory rate 16, oxygen saturation 100% on room air, blood pressure 130/98. HEENT: Head: Normocephalic, atraumatic. Sclerae anicteric. No conjunctival injection. Nasal mucosa moist. Oral mucosa moist. There is no pharyngeal erythema, discharge, or exudate. NECK: Supple, nontender. No lymphadenopathy. No carotid bruits auscultated. No JVD. RESPIRATORY: Clear to auscultation bilaterally. No wheezes, rales, or rhonchi. Good air exchange bilaterally. CARDIAC: Regular rate and rhythm. No clicks, murmurs, gallops, or rubs. Pulses are 2+ in the bilateral dorsalis pedis, posterior tibialis and radial areas. No bilateral lower extremity edema noted. ABDOMEN: Soft, nondistended. Bowel sounds present and normoactive in all 4 quadrants. Acute pigment change and tenderness to deep palpation in the right lower quadrant. There is no hepatosplenomegaly. There are no abdominal bruits auscultated. No hepatojugular reflux. GENITOURINARY: No suprapubic or CVA tenderness. NEUROLOGIC: Cranial nerves II through XII intact. Weakness in the bilateral lower extremities, right worse than the left. PSYCHIATRIC: Pleasant and cooperative. SKIN: The patient has widespread erythema along her skin consistent with her erythrodermic psoriasis. Lower extremity wound not visualized. DIAGNOSTIC STUDIES/LAB DATA: Laboratory Data: White blood cell count 10.5, hemoglobin 15.1, platelet count 278. Sodium 123, potassium 5.0, chloride 88, carbon dioxide 25, anion gap 10, BUN 13, creatinine 0.99, glucose 108, calcium 10.2, magnesium 2.0. Bilirubin 1.8, AST 45, ALT 30, alkaline phosphatase 144. Protein 7.1, albumin 3.8, globulin 3.3. Studies: Abdomen and pelvis CT read as gallstones in descending gallbladder and mild gallbladder wall thickening, raising the possibility of acute cholecystitis. Recommending clinical correlation. Consider ultrasonography for evaluation. Findings consistent with cirrhosis, interval resolution of ascites. [id number] amount of retained stool. New compression fractures at T12 and L1. Gallbladder ultrasound read as the descending gallbladder contains dependent gallstones. There is no gallbladder wall thickening or pericholecystic fluid. No intra or extrahepatic ductal dilatation is identified. If there is suspicion for cholecystitis, HIDA scanning should be performed. Lumbar spine MRI read as acute T12 and L1 compression fractures resulting in 20 % and 30% vertebral height loss, respectively. There is no significant bony retropulsion or paraspinal hematoma at any level. Generalized osteopenia and chronic compression deformity at L4. Varying degrees of multilevel spondyloses not resulting in significant spinal canal or neural foraminal stenosis. Thoracic spine MRI read as acute T12 and L1 compression fractures resulting in approximately 10% to 30% vertebral body height loss, respectively. No significant bony retropulsion or spinal hematoma. Generalized osteoporosis. No significant spinal canal or neural foraminal stenosis. ASSESSMENT AND PLAN: Impression: Ms. Dupont is a 63-year-old female with past medical history significant for cirrhosis, erythrodermic psoriasis, and history of alcohol abuse who presented to the emergency department with worsening in her chronic back pain and found to have significant constipation and hyponatremia. 1. Acute lumbar and thoracic compression fractures. The case was discussed with Dr. Kriss Gibbons of neurosurgery who recommends bedrest, TLSO brace , and upright and standing x-rays to assess for instability after a brace has been obtained. These should be ordered in the morning. Dr. Gibbons will see the patient in consultation. The patient will have calcitonin, morphine and oxycodone for pain control. Calcitonin will be added at this time given the patient's severe constipation and osteoporosis. The patient should follow up as an outpatient with DEXA scans and vitamin D levels, especially given her low sodium, history of alcohol abuse and cirrhosis. 2. Cirrhosis with ascites. Hold the patient's diuretics at this time. The patient appears dry. The patient has no residual ascites and no lower extremity edema. The patient's sodium is not likely related to her cirrhosis, but more likely related to low-salt intake and fluid depletion. The patient should follow as an outpatient with a retail warehouse associate for ongoing management of cirrhosis. 3. Erythrodermic psoriasis. The patient is on triamcinolone cream, which will be applied topically twice daily. 4. Acute kidney injury. The patient's creatinine is 0.99, up from a baseline of 0.48. This is likely due to dehydration. The patient received 1 L of fluids while in the emergency department. The patient's creatinine will be reassessed in the morning and fluids will be continued as indicated by her sodium level. 5. Hyponatremia. The differential for the patient's sodium includes cirrhosis ; which is not very likely, syndrome of inappropriate antidiuretic hormone secretion related to opiate use, and pain which is possible (urine sodium and osmolality are pending at this time) as well as a true solute depletion from low -salt diet associated with excessive diuretic use. This is most likely. The patient has already received 1 L of normal saline in the emergency department. The patient will have a repeat BMP at 7 p.m. today. If her sodium has improved , the patient will be continued on fluids and this will be rechecked in the morning. A goal to have an increase of 6 millimoles per L daily within a 24- hour period will be attempted, though a maximum of 10 will be the absolute highest as it is unclear what the chronicity of this low sodium is. We will check a TSH and a cortisol. The patient's blood pressure is normal; however, acquired adrenal insufficiency is possible due to the significant use of triamcinolone cream. 6. Lower extremity wound. The patient's wound is healing well. 7. FEN. The patient will have a regular unrestricted diet. Fluid restriction will be implemented if the patient's sodium gets worse with normal saline. 8. DVT prophylaxis. Lovenox subcu. 9. Code status. The patient would like to be a full code. The patient's surrogate decision maker will be her , Keith Morales. TIME SPENT: Approximately 60 minutes were spent on the admission of this admission, 30 of which were spent [id number] with the patient obtaining history and physical and discussing treatment plan. This plan has been discussed with my attending, Dr. Bethnaie Resendiz, and she is in agreement. RADHA ADAN [id number]/[facility] #: [id number] MTDCoretta
--- NOTE | 2019-03-19 21:12 | CONS ---
CONSULTATION NOTE: DATE OF CONSULT: 03/19/19 HISTORY OF PRESENT ILLNESS: Ms. Dupont is a 63-year-old female with complaint of axial low back pain without a radicular component for the last 3 months. She denies any recent injury or mechanical falls. Her last fall she reports was 3 months ago where she has had back pain. She denies any issues with radicular pain in her lower extremities or loss of control of bladder or bowel. She has increased pain with walking and standing. She followed up in the ED today with complaint of ongoing pain for the last 3 months. Had an MRI scan completed, which showed fractures at T12 and L1. Neurosurgery was consulted to evaluate the patient. PAST MEDICAL HISTORY: The patient denies any medical history. She denies hypertension, diabetes, any issues with cancer. Has history of psoriasis. HOME MEDICATIONS: 1. Triamcinolone cream 0.1%. 2. Thiamine tab 100 mg. 3. Spironolactone 50 mg. 4. Ranitidine. 5. Zantac 300 mg. 6. Potassium chloride 10 mEq. 7. Oxycodone 2.5 mg. 8. Magnesium oxide 500 mg. 9. Lactulose 15 mL. 10. Furosemide 30 mL. 11. Folic acid 1 mg. 12. Baclofen 5 mg p.o. SOCIAL HISTORY: Denies smoking; recently has stopped smoking. She denies alcohol use; recently stopped drinking. Denies drug use. OBJECTIVE: Temperature is 99.0, pulse rate ranges 100 to 110, respiratory rate 16, O2 saturation 96% to 100% on room air, blood pressure systolic range 151 to 70, diastolic range 80 to 98. PHYSICAL EXAM: General: The patient is lying flat in bed, comfortable, in no acute distress. Neuro Exam: The patient is GCS 15. Alert and oriented x3. Cranial nerves II through XII grossly intact. EOMs intact. Has some decreased peripheral vision noted. Upper extremities: Motor strength is 5/5 bilaterally with elbow flexion and extension, also with shoulder adduction and abduction. Motor strength in the lower extremities 5/5 bilaterally with hip flexion, also with knee flexion and extension. Sensation is intact throughout. Derm: The patient has a flaky, scaly skin with various spots on her upper and lower torso. GI: Abdomen is distended as well. IMAGING: MRI completed today on 03/19/19 showed acute fracture at T12 and L1 and stable with no ligamentous damage or retropulsion. ASSESSMENT: A 63-year-old female with complaint of axial low back pain without radicular component for the last 3 months. Reports that in the last time she had a mechanical fall or injury, pain has been managed with oxycodone and over the last few weeks, and continued to have intractable low back pain with fractures. PLAN: Discussed this case with Dr. Gibbons. No surgical intervention is needed at this time for this patient. We would recommend getting TLSO brace for this patient. Once the patient has TLSO brace that is properly fitted, we would recommend getting upright standing x-rays with TLSO brace on. Thank you for allowing me to be a part of this patient's care. RADHA ROBERTS [id number]/[facility] #: [id number] MICHAEL
[2019-03-19] MEDS: Lactulose* 15 ML UDC PO SCH (22:15)
[2019-03-19] MEDS: Polyethylene Glycol 3350* 17 GM PACKET PO SCH (22:15)
[2019-03-19] MEDS: Potassium Chlor TAB* 10 MEQ TAB.ER PO SCH (22:16)
[2019-03-19] MEDS: Baclofen TAB* 10 MG PO SCH (22:16)
[2019-03-19] MEDS: Triamcinolone 0.025% OINT * 15 GM TUBE TOPICAL SCH (22:19)
[2019-03-20 05:45] LABS: Urine Appearance Clear; Urine Bacteria Absent (Absent); Urine Bilirubin Negative (Negative); Urine Blood 1+ (Negative); Urine Color Yellow; Urine Glucose Negative (Negative); Urine Ketones Negative (Negative); Urine Nitrite Negative (Negative); Urine Protein Negative (Negative); Urine Red Blood Cell Trace(0-2/hpf) (Absent); Urine Specific Gravity 1.019 (1.010-1.030); Urine Squamous Epithelial Cell Present (Absent); Urine Urobilinogen Negative (Negative); Urine White Blood Cell Trace(0-5/hpf) (Absent)
[2019-03-20] MEDS: NS 0.9% 1000 ML** 1,000 ML IV SCH ×2 (06:19→21:01)
[2019-03-20 06:42] LABS: ABS Basophils 0.1 10^3/ul (0-0.2); ABS Eosinophils 0.5 10^3/ul (0-0.6); ABS Lymphocytes 2.1 10^3/ul (1.0-4.8); ABS Monocytes 1.5 10^3/ul (0-0.8); Eosinophil % 5.5 %; Hematocrit 38 % (35-47); Hemoglobin 13.5 g/dL (12.0-16.0); Lymphocyte % 22.8 %; Mean Corpuscular HGB Conc 35 g/dL (31-36); Mean Corpuscular Hemoglobin 37 pg (27-31); Mean Corpuscular Volume 104 fL (80-97); Mean Platelet Volume 7.3 fL (7.4-10.4); Nucleated Red Blood Cells % 0.1; Platelet Count 236 10^3/uL (150-450); Red Blood Count 3.66 10^6 /uL (3.70-4.87); Red Cell Distribution Width 13 % (10-15); White Blood Count 9.2 10^3/uL (3.5-10.8)
[2019-03-20 06:59] LABS: BUN/Creatinine Ratio 16.2 (8-20); Calcium 8.9 mg/dL (8.6-10.3); EGFR African American 105.4 (>60); EGFR Non-African American 87.1 (>60); Magnesium 1.9 mg/dL (1.9-2.7); Potassium 4.6 mmol/L (3.5-5.0)
[2019-03-20 07:28] LABS: TSH (Thyroid Stimulating Horm) 1.31 mcIU/mL (0.34-5.60)
[2019-03-20] MEDS: Morphine INJ* 2 MG/ML 1 ML SYRINGE (TWO MG - NEW SYRINGE VERSION) IV PRN ×2 (08:24→14:33)
[2019-03-20] MEDS: Lactulose* 15 ML UDC PO SCH ×2 (08:25→20:58)
[2019-03-20] MEDS: Folic Acid TAB* 1 MG PO SCH (08:25)
[2019-03-20] MEDS: Triamcinolone 0.025% OINT * 15 GM TUBE TOPICAL SCH ×3 (08:25→20:58)
[2019-03-20] MEDS: Thiamine TAB* 100 MG TAB PO SCH (08:25)
[2019-03-20] MEDS: Polyethylene Glycol 3350* 17 GM PACKET PO SCH ×2 (08:25→20:56)
[2019-03-20] MEDS: Magnesium Oxide TAB* 400 MG PO SCH (08:25)
[2019-03-20] MEDS: Potassium Chlor TAB* 10 MEQ TAB.ER PO SCH ×2 (08:25→20:57)
[2019-03-20] MEDS: Baclofen TAB* 10 MG PO SCH ×3 (08:25→20:56)
[2019-03-20] MEDS: Famotidine TAB* 20 MG PO SCH (08:25)
[2019-03-20] MEDS ORDERED: Calcitonin (Salmon) INJ* 200 UNITS/ML 2 ML VIAL SUBCUT SCH (09:00)
[2019-03-20] MEDS ORDERED: Bisacodyl SUPP* 10 MG SUPP PR PRN (10:34)
[2019-03-20] MEDS: Lidocaine PATCH 5%* 1 PATCH TRANSDERM SCH (10:36)
[2019-03-20] MEDS: oxyCODONE TAB* 5 MG TAB PO PRN (10:36)
--- NOTE | 2019-03-20 10:36 | PN ---
Subjective Date of Service: 03/20/19 Interval History: Patient is still having severe back pain and moderate abdominal pain with a feeling of constipation. Patient has no worsening of numbness or tingling in leg. Patient does not feel that she has to urinate, nor that she has a full bladder. Patient denies F/C, N/V, dizziness, palpitations, SOB, CP. Family History: Unchanged from Admission Social History: Unchanged from Admission Past Medical History: Unchanged from Admission Objective Active Medications: Acetaminophen (Tylenol Tab*) 650 mg PO Q6H PRN PRN Reason: MILD PAIN or TEMP > 100.4 Al Hydrox/Mg Hydrox/Simethicone (Maalox Plus*) 30 ml PO Q4H PRN PRN Reason: HEARTBURN Baclofen (Lioresal Tab*) 5 mg PO TID [facility] Last Admin: 03/20/19 08:25 Dose: 5 mg Enoxaparin Sodium (Lovenox(*)) 40 mg SUBCUT Q24H [facility] Last Admin: 03/19/19 20:09 Dose: 40 mg Famotidine (Pepcid Tab*) 40 mg PO DAILY [facility]; Protocol Last Admin: 03/20/19 08:25 Dose: 40 mg Folic Acid (Folvite Tab*) 1 mg PO DAILY [facility] Last Admin: 03/20/19 08:25 Dose: 1 mg Sodium Chloride (Ns 0.9% 1000 Ml) 1,000 mls @ 100 mls/hr IV PER RATE [facility] Last Admin: 03/20/19 06:19 Dose: 100 mls/hr Lactulose (Lactulose*) 15 ml PO BID [facility] Last Admin: 03/20/19 08:25 Dose: 15 ml Lidocaine (Lidoderm 5% Patch*) 1 patch TRANSDERM DAILY [facility] Magnesium Oxide (Magox 400 Tab*) 400 mg PO DAILY [facility] Last Admin: 03/20/19 08:25 Dose: 400 mg Morphine Sulfate (Morphine Inj (Syringe))*) 1 mg IV Q4H PRN PRN Reason: PAIN - SEVERE Last Admin: 03/20/19 08:24 Dose: 1 mg Ondansetron HCl (Zofran Inj*) 4 mg IV Q6H PRN PRN Reason: NAUSEA Oxycodone HCl (Roxycodone Tab*) 2.5 mg PO Q4H PRN PRN Reason: PAIN - MODERATE Pharmacy Profile Note (Lidocaine Patch Remove*) 1 note N/A 2099 [facility] Polyethylene Glycol/Electrolytes (Miralax*) 17 gm PO 0800,2099 [facility] Last Admin: 03/20/19 08:25 Dose: 17 gm Potassium Chloride (Klor Con Er Tab*) 10 meq PO BID [facility] Last Admin: 03/20/19 08:25 Dose: 10 meq Senna (Senokot 8.6 Mg Tab*) 2 tab PO BEDTIME PRN PRN Reason: CONSTIPATION Thiamine HCl (Vitamin B-1 Tab*) 100 mg PO DAILY [facility] Last Admin: 03/20/19 08:25 Dose: 100 mg Triamcinolone Acetonide (Triamcinolone 0.025% Oint *) 1 applic TOPICAL BID [facility] Last Admin: 03/20/19 08:33 Dose: Not Given Vital Signs - 8 hr 03/20/19 03/20/19 03/20/19 03:06 07:15 08:24 Temperature 97.5 F 98.2 F Pulse Rate 105 112 Respiratory 16 20 16 Rate Blood Pressure 156/69 139/62 (mmHg) O2 Sat by Pulse 98 100 Oximetry 03/20/19 09:31 Temperature Pulse Rate Respiratory 16 Rate Blood Pressure (mmHg) O2 Sat by Pulse Oximetry Oxygen Devices in Use Now: None Appearance: Patient is a 63yo female who appears stated age and is sitting in the bed in [facility]. Eyes: No Scleral Icterus, PERRLA Ears/Nose/Mouth/Throat: NL Teeth, Lips, Gums, Clear Oropharnyx, Mucous Membranes Moist Neck: NL Appearance and Movements; NL JVP, Trachea Midline Respiratory: Symmetrical Chest Expansion and Respiratory Effort, Clear to Auscultation Cardiovascular: NL Sounds; No Murmurs; No JVD, RRR, No Edema Abdominal: No Hepatosplenomegaly, - - Tender to palpation throughout. Lymphatic: No Cervical Adenopathy Extremities: No Edema, No Clubbing, Cyanosis Skin: No Nodules or Sclerosis, - - Widespread erythroderma. Neurological: Alert and Oriented x 3, NL Sensation, NL Muscle Strength and Tone , - - CN II-XII intact. Result Diagrams: 03/20/19 06:28 03/20/19 06:28 Assess/Plan/Problems-Billing Assessment: Patient is a 63yo female with a PMH for Cirrhosis, Erythrodermic Psoriasis, who is admitted with compression fractures of the spine, constipation, and hyponatremia. Patient has persistent back pain, and is constipated, but her hyponatremia is improving. - Patient Problems (1) Compression fracture Current Visit: Yes Status: Acute Code(s): WMJ0717 - SNOMED Code(s): 705383990 Comment: - Compression Fracture of T12 and S1. - Appreciate Neurosurgery consult - TLSO brace pending, then upright X-Rays - Pain control with Opiates, Lidocaine Patch, PT, and Calcitonin if Calcium will tolerate. (2) Hyponatremia Current Visit: Yes Status: Acute Code(s): E87.1 - HYPO-OSMOLALITY AND HYPONATREMIA SNOMED Code(s): 75824360 Comment: - Due to Overdiuresis, Continue fluids - Improving, aim for increase of 6 daily. - Resume Lasix and Spironolactone at lower doses when able. (3) Alcoholic cirrhosis Current Visit: No Status: Acute Code(s): K70.30 - ALCOHOLIC CIRRHOSIS OF LIVER WITHOUT ASCITES SNOMED Code(s): 379795618 Comment: - Abdomen CT remarkable for cirrhosis without cirrhosis - Follows with GI at [facility] - Resume spironolactone, furosemide - 3 Months abstinent. (4) Erythrodermic psoriasis Current Visit: No Status: Acute Code(s): L40.8 - OTHER PSORIASIS SNOMED Code(s): 783867850 Comment: - Continue triamcinolone (5) GERD (gastroesophageal reflux disease) Current Visit: No Status: Acute Code(s): K21.9 - GASTRO-ESOPHAGEAL REFLUX DISEASE WITHOUT ESOPHAGITIS SNOMED Code(s): 476856619 Comment: - Continue famotidine (6) Constipation Current Visit: Yes Status: Acute Code(s): K59.00 - CONSTIPATION, UNSPECIFIED SNOMED Code(s): 00370851 Comment: - Partially related to opiate use - Continue laxatives - Consider Methylnaltrexone if unable to induce BM. (7) DVT prophylaxis Current Visit: No Status: Acute Code(s): [id number] - SNOMED Code(s): 264098700 Comment: - Lovenox (8) Full code status Current Visit: No Status: Acute Code(s): Z78.9 - OTHER SPECIFIED HEALTH STATUS SNOMED Code(s): 693376883 Comment: Status and Disposition: Inpatient for pain control and treatment of hyponatremia.
[2019-03-20 17:02] LABS: Calcium 8.5 mg/dL (8.6-10.3); Potassium 4.8 mmol/L (3.5-5.0)
[2019-03-20 17:08] LABS: BUN/Creatinine Ratio 13.2 (8-20); EGFR African American 105.4 (>60); EGFR Non-African American 87.1 (>60)
[2019-03-20] MEDS: Enoxaparin(*) 40 MG/0.4 ML SYR SUBCUT SCH (17:35)
[2019-03-20 18:59] LABS: Urine Appearance Cloudy; Urine Bilirubin Negative (Negative); Urine Blood Negative (Negative); Urine Color Yellow; Urine Glucose Negative (Negative); Urine Ketones Trace (Negative); Urine Nitrite Negative (Negative); Urine Protein Negative (Negative); Urine Specific Gravity 1.024 (1.010-1.030); Urine Urobilinogen Negative (Negative)
[2019-03-20] MEDS: Lidocaine Patch REMOVE* 1 NOTE MISC SCH (21:00)
[2019-03-21] MEDS: Polyethylene Glycol 3350* 17 GM PACKET PO SCH ×2 (08:41→22:28)
[2019-03-21] MEDS: Famotidine TAB* 20 MG PO SCH (09:38)
[2019-03-21] MEDS: Potassium Chlor TAB* 10 MEQ TAB.ER PO SCH ×2 (09:38→22:29)
[2019-03-21] MEDS: Folic Acid TAB* 1 MG PO SCH (09:38)
[2019-03-21] MEDS: Triamcinolone 0.025% OINT * 15 GM TUBE TOPICAL SCH ×3 (09:39→22:37)
[2019-03-21] MEDS: Thiamine TAB* 100 MG TAB PO SCH (09:39)
[2019-03-21] MEDS: Magnesium Oxide TAB* 400 MG PO SCH (09:39)
[2019-03-21] MEDS: Lidocaine PATCH 5%* 1 PATCH TRANSDERM SCH (09:40)
[2019-03-21] MEDS: Baclofen TAB* 10 MG PO SCH ×3 (09:44→22:29)
[2019-03-21] MEDS: Lactulose* 15 ML UDC PO SCH ×2 (09:45→22:29)
[2019-03-21 12:41] LABS: Hematocrit 36 % (35-47); Hemoglobin 12.7 g/dL (12.0-16.0); Mean Corpuscular HGB Conc 35 g/dL (31-36); Mean Corpuscular Hemoglobin 36 pg (27-31); Mean Corpuscular Volume 103 fL (80-97); Mean Platelet Volume 7.2 fL (7.4-10.4); Platelet Count 248 10^3/uL (150-450); Red Blood Count 3.52 10^6 /uL (3.70-4.87); Red Cell Distribution Width 13 % (10-15); White Blood Count 12.4 10^3/uL (3.5-10.8)
[2019-03-21 12:58] LABS: BUN/Creatinine Ratio 11.1 (8-20); Calcium 8.9 mg/dL (8.6-10.3); EGFR African American 115.1 (>60); EGFR Non-African American 95.1 (>60); Magnesium 1.7 mg/dL (1.9-2.7); Potassium 4.6 mmol/L (3.5-5.0)
[2019-03-21 13:13] LABS: ABS Eosinophils 0.4 10^3/ul (0-0.6); ABS Lymphocytes 1.7 10^3/ul (1.0-4.8); ABS Neutrophils 8.4 10^3/ul (1.5-7.7); Eosinophil % 2.9 %; Lymphocyte % 13.3 %
[2019-03-21] MEDS: NS 0.9% 1000 ML** 1,000 ML IV SCH (14:43)
[2019-03-21 15:07] LABS: Troponin I 0.05 ng/mL (<0.04)
[2019-03-21] MEDS: Metoprolol Tartrate TAB* 25 MG PO SCH (17:43)
[2019-03-21] MEDS: Enoxaparin(*) 40 MG/0.4 ML SYR SUBCUT SCH (17:43)
[2019-03-21 17:54] LABS: Troponin I 0.04 ng/mL (<0.04)
--- NOTE | 2019-03-21 19:47 | PN ---
Progress Note - Progress Note Date of Service: 03/21/19 Note: Patient completed standing lumbar spine X rays with brace, alignment appears to be intact. Neurosurgery recommends that patient continues to wear the brace when upright, does not need to wear brace when laying flat. Patient reports that her pain was improved with standing with the brace on. No surgical intervention needed at this time. Patient should follow up in out patient clinic in 2 weeks with new set of x ray's standing in brace. Neurosurgery will be available if needed.
--- NOTE | 2019-03-21 21:08 | PN ---
Subjective Date of Service: 03/21/19 Interval History: Patient had relief in abdominal and back pain after large BM. Patient had approximately 5 seconds of chest pain which resolved by itself. Patient had no other associated symptoms. Patient has a slight headache. Patient denies F/C, CP , SOB, dizziness, dysuria. Family History: Unchanged from Admission Social History: Unchanged from Admission Past Medical History: Unchanged from Admission Objective Active Medications: Acetaminophen (Tylenol Tab*) 650 mg PO Q6H PRN PRN Reason: MILD PAIN or TEMP > 100.4 Al Hydrox/Mg Hydrox/Simethicone (Maalox Plus*) 30 ml PO Q4H PRN PRN Reason: HEARTBURN Baclofen (Lioresal Tab*) 5 mg PO TID [facility] Last Admin: 03/21/19 14:57 Dose: 5 mg Bisacodyl (Dulcolax Supp*) 10 mg NC DAILY PRN PRN Reason: CONSTIPATION Enoxaparin Sodium (Lovenox(*)) 40 mg SUBCUT Q24H [facility] Last Admin: 03/21/19 17:43 Dose: 40 mg Famotidine (Pepcid Tab*) 40 mg PO DAILY [facility]; Protocol Last Admin: 03/21/19 09:38 Dose: 40 mg Folic Acid (Folvite Tab*) 1 mg PO DAILY [facility] Last Admin: 03/21/19 09:38 Dose: 1 mg Sodium Chloride (Ns 0.9% 1000 Ml) 1,000 mls @ 100 mls/hr IV PER RATE [facility] Last Admin: 03/21/19 14:43 Dose: 100 mls/hr Lactulose (Lactulose*) 15 ml PO BID [facility] Last Admin: 03/21/19 09:45 Dose: Not Given Lidocaine (Lidoderm 5% Patch*) 1 patch TRANSDERM DAILY [facility] Last Admin: 03/21/19 09:40 Dose: 1 patch Magnesium Oxide (Magox 400 Tab*) 400 mg PO DAILY [facility] Last Admin: 03/21/19 09:39 Dose: 400 mg Metoprolol Tartrate (Lopressor Tab*) 25 mg PO BID [facility] Last Admin: 03/21/19 17:43 Dose: 25 mg Morphine Sulfate (Morphine Inj (Syringe))*) 1 mg IV Q4H PRN PRN Reason: PAIN - SEVERE Last Admin: 03/20/19 14:33 Dose: 1 mg Ondansetron HCl (Zofran Inj*) 4 mg IV Q6H PRN PRN Reason: NAUSEA Oxycodone HCl (Roxycodone Tab*) 2.5 mg PO Q4H PRN PRN Reason: PAIN - MODERATE Last Admin: 03/20/19 10:36 Dose: 2.5 mg Pharmacy Profile Note (Lidocaine Patch Remove*) 1 note N/A 2099 [facility] Last Admin: 03/20/19 21:00 Dose: Not Given Polyethylene Glycol/Electrolytes (Miralax*) 17 gm PO 0800,2099 [facility] Last Admin: 03/21/19 08:41 Dose: Not Given Potassium Chloride (Klor Con Er Tab*) 10 meq PO BID [facility] Last Admin: 03/21/19 09:38 Dose: 10 meq Senna (Senokot 8.6 Mg Tab*) 2 tab PO BEDTIME PRN PRN Reason: CONSTIPATION Thiamine HCl (Vitamin B-1 Tab*) 100 mg PO DAILY [facility] Last Admin: 03/21/19 09:39 Dose: 100 mg Triamcinolone Acetonide (Triamcinolone 0.025% Oint *) 1 applic TOPICAL BID [facility] Last Admin: 03/21/19 09:39 Dose: Not Given Vital Signs - 8 hr 03/21/19 03/21/19 14:19 15:27 Temperature 98.7 F 98.3 F Pulse Rate 118 103 Respiratory 16 20 Rate Blood Pressure 138/66 145/72 (mmHg) O2 Sat by Pulse 98 96 Oximetry Oxygen Devices in Use Now: None Appearance: Patient is a 63yo female who appears stated age has severe erythema , and is sitting in the bed in [facility]. Eyes: No Scleral Icterus, PERRLA Ears/Nose/Mouth/Throat: NL Teeth, Lips, Gums, Clear Oropharnyx, Mucous Membranes Moist Neck: NL Appearance and Movements; NL JVP, Trachea Midline Respiratory: Symmetrical Chest Expansion and Respiratory Effort, Clear to Auscultation Cardiovascular: NL Sounds; No Murmurs; No JVD, No Edema, - - Tachycardia Abdominal: NL Sounds; No Tenderness; No Distention, No Hepatosplenomegaly Lymphatic: No Cervical Adenopathy Extremities: No Edema, No Clubbing, Cyanosis Skin: No Nodules or Sclerosis, - - Widespread erythroderma Neurological: Alert and Oriented x 3, NL Sensation, NL Muscle Strength and Tone , - - CN II-XII intact. Result Diagrams: 03/21/19 12:20 03/21/19 12:20 Microbiology and Other Data: Microbiology 03/20/19 05:27 Urine Culture - Final Urine Assess/Plan/Problems-Billing Assessment: Patient is a 63yo female with a PMH for Cirrhosis, Erythrodermic Psoriasis, who is admitted with compression fractures of the spine, constipation, and hyponatremia. Patient has persistent back pain, and is constipated, but her hyponatremia is improving. - Patient Problems (1) Compression fracture Current Visit: Yes Status: Acute Code(s): DMF7151 - SNOMED Code(s): 442994082 Comment: - Compression Fracture of T12 and S1. - Appreciate Neurosurgery consult - TLSO brace in place, Upright XR normal, Release bedrest and start PT/OT - Pain control with Opiates, Lidocaine Patch, PT - Pain much improved. (2) Hyponatremia Current Visit: Yes Status: Acute Code(s): E87.1 - HYPO-OSMOLALITY AND HYPONATREMIA SNOMED Code(s): 13262751 Comment: - Due to Overdiuresis, Continue fluids - Improving, aim for increase of 6 daily. - Resume Lasix and Spironolactone at lower doses when able. (3) Alcoholic cirrhosis Current Visit: No Status: Acute Code(s): K70.30 - ALCOHOLIC CIRRHOSIS OF LIVER WITHOUT ASCITES SNOMED Code(s): 324516454 Comment: - Abdomen CT remarkable for cirrhosis without cirrhosis - Follows with GI at [place] - Resume spironolactone, furosemide - 3 Months abstinent. (4) Erythrodermic psoriasis Current Visit: No Status: Acute Code(s): L40.8 - OTHER PSORIASIS SNOMED Code(s): 483868676 Comment: - Continue triamcinolone - Continue Moisturizers (5) GERD (gastroesophageal reflux disease) Current Visit: No Status: Acute Code(s): K21.9 - GASTRO-ESOPHAGEAL REFLUX DISEASE WITHOUT ESOPHAGITIS SNOMED Code(s): 728540235 Comment: - Continue famotidine (6) Constipation Current Visit: Yes Status: Acute Code(s): K59.00 - CONSTIPATION, UNSPECIFIED SNOMED Code(s): 57262107 Comment: - Partially related to opiate use - Continue laxatives - Relieved today, continue laxatives. (7) DVT prophylaxis Current Visit: No Status: Acute Code(s): UMM6901 - SNOMED Code(s): 934229011 Comment: - Lovenox (8) Elevated troponin Current Visit: Yes Status: Acute Code(s): R74.8 - ABNORMAL LEVELS OF OTHER SERUM ENZYMES SNOMED Code(s): 667560784 Comment: - 2 episodes of very brief chest pain, no EKG changes - Peaked at .05 - Likely related from tachycardia from dehydration - Beta Ramesh, no need for heparinization. (9) Full code status Current Visit: No Status: Acute Code(s): Z78.9 - OTHER SPECIFIED HEALTH STATUS SNOMED Code(s): 511466840 Comment: Status and Disposition: Inpatient for pain control and treatment of hyponatremia.
[2019-03-21] MEDS: Lidocaine Patch REMOVE* 1 NOTE MISC SCH (23:36)
[2019-03-22] MEDS: NS 0.9% 1000 ML** 1,000 ML IV SCH (04:02)
[2019-03-22 06:47] LABS: Urine Appearance Turbid; Urine Bacteria Absent (Absent); Urine Bilirubin Negative (Negative); Urine Blood 3+ (Negative); Urine Color Amber; Urine Glucose Negative (Negative); Urine Ketones 1+ (Negative); Urine Nitrite Positive (Negative); Urine Protein 1+(30 mg/dL) (Negative); Urine Red Blood Cell 3+(>10/hpf) (Absent); Urine Specific Gravity 1.014 (1.010-1.030); Urine Squamous Epithelial Cell Present (Absent); Urine Urobilinogen Negative (Negative); Urine White Blood Cell 3+(>20/hpf) (Absent)
[2019-03-22 06:58] LABS: Hematocrit 36 % (35-47); Hemoglobin 12.5 g/dL (12.0-16.0); Mean Corpuscular HGB Conc 35 g/dL (31-36); Mean Corpuscular Hemoglobin 36 pg (27-31); Mean Corpuscular Volume 104 fL (80-97); Mean Platelet Volume 7.6 fL (7.4-10.4); Platelet Count 239 10^3/uL (150-450); Red Blood Count 3.47 10^6 /uL (3.70-4.87); Red Cell Distribution Width 13 % (10-15); White Blood Count 12.2 10^3/uL (3.5-10.8)
[2019-03-22 07:00] LABS: ABS Basophils 0.1 10^3/ul (0-0.2); ABS Eosinophils 0.2 10^3/ul (0-0.6); ABS Lymphocytes 1.7 10^3/ul (1.0-4.8); ABS Monocytes 1.8 10^3/ul (0-0.8); ABS Neutrophils 8.4 10^3/ul (1.5-7.7); Eosinophil % 1.7 %
[2019-03-22 07:09] LABS: Anion Gap 10 mmol/L (2-11); BUN/Creatinine Ratio 12.9 (8-20); Blood Urea Nitrogen 9 mg/dL (6-24); CO2 Carbon Dioxide 19 mmol/L (22-32); Calcium 9.1 mg/dL (8.6-10.3); Chloride 99 mmol/L (101-111); EGFR African American 101.9 (>60); EGFR Non-African American 84.2 (>60); Glucose 80 mg/dL (70-100); Magnesium 1.7 mg/dL (1.9-2.7); Potassium 4.8 mmol/L (3.5-5.0); Sodium 128 mmol/L (135-145)
[2019-03-22 07:11] LABS: Troponin I 0.05 ng/mL (<0.04)
[2019-03-22] MEDS: Polyethylene Glycol 3350* 17 GM PACKET PO SCH ×2 (09:06→20:58)
[2019-03-22] MEDS: Magnesium Oxide TAB* 400 MG PO SCH (09:35)
[2019-03-22] MEDS: Metoprolol Tartrate TAB* 25 MG PO SCH ×2 (09:35→20:54)
[2019-03-22] MEDS: Lactulose* 15 ML UDC PO SCH ×2 (09:35→20:54)
[2019-03-22] MEDS: Baclofen TAB* 10 MG PO SCH ×3 (09:36→20:55)
[2019-03-22] MEDS: Folic Acid TAB* 1 MG PO SCH (09:36)
[2019-03-22] MEDS: Thiamine TAB* 100 MG TAB PO SCH (09:36)
[2019-03-22] MEDS: Famotidine TAB* 20 MG PO SCH (09:36)
[2019-03-22] MEDS: Potassium Chlor TAB* 10 MEQ TAB.ER PO SCH (09:36)
[2019-03-22] MEDS: Triamcinolone 0.025% OINT * 15 GM TUBE TOPICAL SCH ×2 (09:38→20:58)
[2019-03-22] MEDS: cefTRIAXone(*) 1 GM in NS 0.9% 50 ML* 50 ML IVPB SCH (10:09)
[2019-03-22] MEDS: Lidocaine PATCH 5%* 1 PATCH TRANSDERM SCH (10:14)
--- NOTE | 2019-03-22 15:01 | PN ---
Subjective Date of Service: 03/22/19 Interval History: Patient is feeling better today. Patient's pain and overall feeling of wellness has increased after she was able to have her large BMs. Patient states her back pain is 4/10. Patient denies F/C, N/V, abdominal pain, CP, SOB, dizziness, unsteadiness on her feet, or other pain. Family History: Unchanged from Admission Social History: Unchanged from Admission Past Medical History: Unchanged from Admission Objective Active Medications: Acetaminophen (Tylenol Tab*) 650 mg PO Q6H PRN PRN Reason: MILD PAIN or TEMP > 100.4 Al Hydrox/Mg Hydrox/Simethicone (Maalox Plus*) 30 ml PO Q4H PRN PRN Reason: HEARTBURN Baclofen (Lioresal Tab*) 5 mg PO TID [facility] Last Admin: 03/22/19 14:16 Dose: 5 mg Bisacodyl (Dulcolax Supp*) 10 mg LA DAILY PRN PRN Reason: CONSTIPATION Enoxaparin Sodium (Lovenox(*)) 40 mg SUBCUT Q24H [facility] Last Admin: 03/21/19 17:43 Dose: 40 mg Famotidine (Pepcid Tab*) 40 mg PO DAILY [facility]; Protocol Last Admin: 03/22/19 09:36 Dose: 40 mg Folic Acid (Folvite Tab*) 1 mg PO DAILY [facility] Last Admin: 03/22/19 09:36 Dose: 1 mg Ceftriaxone Sodium 1 gm/ (Sodium Chloride) 50 mls @ 100 mls/hr IVPB Q24H [facility] Last Admin: 03/22/19 10:09 Dose: 100 mls/hr Lactulose (Lactulose*) 15 ml PO BID [facility] Last Admin: 03/22/19 09:35 Dose: Not Given Lidocaine (Lidoderm 5% Patch*) 1 patch TRANSDERM DAILY [facility] Last Admin: 03/22/19 10:14 Dose: 1 patch Magnesium Oxide (Magox 400 Tab*) 400 mg PO DAILY [facility] Last Admin: 03/22/19 09:35 Dose: 400 mg Metoprolol Tartrate (Lopressor Tab*) 25 mg PO BID [facility] Last Admin: 03/22/19 09:35 Dose: 25 mg Morphine Sulfate (Morphine Inj (Syringe))*) 1 mg IV Q4H PRN PRN Reason: PAIN - SEVERE Last Admin: 03/20/19 14:33 Dose: 1 mg Ondansetron HCl (Zofran Inj*) 4 mg IV Q6H PRN PRN Reason: NAUSEA Oxycodone HCl (Roxycodone Tab*) 2.5 mg PO Q4H PRN PRN Reason: PAIN - MODERATE Last Admin: 03/20/19 10:36 Dose: 2.5 mg Pharmacy Profile Note (Lidocaine Patch Remove*) 1 note N/A 2100 [facility] Last Admin: 03/21/19 23:36 Dose: 1 note Polyethylene Glycol/Electrolytes (Miralax*) 17 gm PO 0800,2099 [facility] Last Admin: 03/22/19 09:06 Dose: Not Given Potassium Chloride (Potassium Chloride Liquid) 20 meq PO DAILY [facility] Senna (Senokot 8.6 Mg Tab*) 2 tab PO BEDTIME PRN PRN Reason: CONSTIPATION Thiamine HCl (Vitamin B-1 Tab*) 100 mg PO DAILY [facility] Last Admin: 03/22/19 09:36 Dose: 100 mg Triamcinolone Acetonide (Triamcinolone 0.025% Oint *) 1 applic TOPICAL BID [facility] Last Admin: 03/22/19 09:38 Dose: Not Given Vital Signs - 8 hr 03/22/19 03/22/19 03/22/19 07:15 08:00 11:10 Temperature 97.3 F 97.9 F Pulse Rate 98 72 Respiratory 18 19 18 Rate Blood Pressure 147/59 145/63 (mmHg) O2 Sat by Pulse 99 100 Oximetry Oxygen Devices in Use Now: None Appearance: Patient is a 63yo female with profuse erythematous changes to her skin who is sitting in the bed in [facility]. Eyes: No Scleral Icterus, PERRLA Ears/Nose/Mouth/Throat: NL Teeth, Lips, Gums, Clear Oropharnyx, Mucous Membranes Moist Neck: NL Appearance and Movements; NL JVP, Trachea Midline Respiratory: Symmetrical Chest Expansion and Respiratory Effort, Clear to Auscultation Cardiovascular: NL Sounds; No Murmurs; No JVD, RRR, No Edema Abdominal: NL Sounds; No Tenderness; No Distention, No Hepatosplenomegaly Lymphatic: No Cervical Adenopathy Extremities: No Edema, No Clubbing, Cyanosis Skin: No Nodules or Sclerosis, - - Widespread erythema. Neurological: Alert and Oriented x 3, NL Sensation, NL Muscle Strength and Tone , - - CN II-XII intact. Result Diagrams: 03/22/19 06:32 03/22/19 06:32 Microbiology and Other Data: Microbiology 03/20/19 05:27 Urine Culture - Final Urine Assess/Plan/Problems-Billing Assessment: Patient is a 63yo female with a PMH for Cirrhosis, Erythrodermic Psoriasis, who is admitted with compression fractures of the spine, constipation, and hyponatremia. Patient has persistent back pain, and is constipated, but her hyponatremia is improving. - Patient Problems (1) Compression fracture Current Visit: Yes Status: Acute Code(s): EHM9118 - SNOMED Code(s): 659544917 Comment: - Compression Fracture of T12 and S1. - Appreciate Neurosurgery consult - TLSO brace in place, Upright XR normal, Release bedrest and start PT/OT - Pain control with Opiates, Lidocaine Patch, PT - Pain much improved. (2) Hyponatremia Current Visit: Yes Status: Acute Code(s): E87.1 - HYPO-OSMOLALITY AND HYPONATREMIA SNOMED Code(s): 67551861 Comment: - Due to Overdiuresis, Stop Fluids and repeat in AM - Improving, aim for increase of 6 daily. - Resume Lasix and Spironolactone at lower doses hopefully tomorrow. Decrease ratio of spironolactone to Lasix. (3) Alcoholic cirrhosis Current Visit: No Status: Acute Code(s): K70.30 - ALCOHOLIC CIRRHOSIS OF LIVER WITHOUT ASCITES SNOMED Code(s): 706321514 Comment: - Abdomen CT remarkable for cirrhosis without Ascites. - Follows with GI at [place] - Resume spironolactone, furosemide when able - 3 Months abstinent. (4) Erythrodermic psoriasis Current Visit: No Status: Acute Code(s): L40.8 - OTHER PSORIASIS SNOMED Code(s): 283577176 Comment: - Continue triamcinolone - Continue Moisturizers (5) GERD (gastroesophageal reflux disease) Current Visit: No Status: Acute Code(s): K21.9 - GASTRO-ESOPHAGEAL REFLUX DISEASE WITHOUT ESOPHAGITIS SNOMED Code(s): 276175748 Comment: - Continue famotidine (6) Constipation Current Visit: Yes Status: Acute Code(s): K59.00 - CONSTIPATION, UNSPECIFIED SNOMED Code(s): 79722283 Comment: - Partially related to opiate use - Relieved today, continue laxatives. (7) Urinary tract infection Current Visit: Yes Status: Acute Comment: - UA with Nitrates and Leukocyte Esterase. - Treat for UTI pending culture. - Start Ceftriaxone. (8) DVT prophylaxis Current Visit: No Status: Acute Code(s): IIB4446 - SNOMED Code(s): 584441011 Comment: - Lovenox (9) Elevated troponin Current Visit: Yes Status: Acute Code(s): R74.8 - ABNORMAL LEVELS OF OTHER SERUM ENZYMES SNOMED Code(s): 637304906 Comment: - 2 episodes of very brief chest pain, no EKG changes - Peaked at .05 - Likely related from tachycardia from dehydration - Tachycardia reduced, Decrease BB, no need for heparinization. (10) Full code status Current Visit: No Status: Acute Code(s): Z78.9 - OTHER SPECIFIED HEALTH STATUS SNOMED Code(s): 386504346 Comment: Status and Disposition: Inpatient for pain control and treatment of hyponatremia. Hopeful D/C tomorrow.
[2019-03-22] MEDS: Enoxaparin(*) 40 MG/0.4 ML SYR SUBCUT SCH (18:14)
[2019-03-22] MEDS: oxyCODONE TAB* 5 MG TAB PO PRN (20:53)
[2019-03-22] MEDS: Lidocaine Patch REMOVE* 1 NOTE MISC SCH (20:57)
[2019-03-23] MEDS: Polyethylene Glycol 3350* 17 GM PACKET PO SCH (08:26)
[2019-03-23] MEDS: Baclofen TAB* 10 MG PO SCH ×2 (08:33→13:29)
[2019-03-23] MEDS: Metoprolol Tartrate TAB* 25 MG PO SCH (08:33)
[2019-03-23] MEDS: Magnesium Oxide TAB* 400 MG PO SCH (08:33)
[2019-03-23] MEDS: Folic Acid TAB* 1 MG PO SCH (08:34)
[2019-03-23] MEDS: Thiamine TAB* 100 MG TAB PO SCH (08:34)
[2019-03-23] MEDS: Famotidine TAB* 20 MG PO SCH (08:34)
[2019-03-23] MEDS: Lactulose* 15 ML UDC PO SCH (08:35)
[2019-03-23] MEDS: Lidocaine PATCH 5%* 1 PATCH TRANSDERM SCH (08:35)
[2019-03-23] MEDS: Triamcinolone 0.025% OINT * 15 GM TUBE TOPICAL SCH (08:36)
[2019-03-23] MEDS ORDERED: Potassium Chloride* LIQUID 20 MEQ/15 ML UDC PO SCH (09:00)
[2019-03-23] MEDS: cefTRIAXone(*) 1 GM in NS 0.9% 50 ML* 50 ML IVPB SCH (10:33)
[2019-03-23 10:57] LABS: ABS Basophils 0.1 10^3/ul (0-0.2); ABS Eosinophils 0.7 10^3/ul (0-0.6); ABS Lymphocytes 2.1 10^3/ul (1.0-4.8); ABS Monocytes 1.2 10^3/ul (0-0.8); ABS Neutrophils 4.5 10^3/ul (1.5-7.7); Eosinophil % 7.7 %; Hematocrit 39 % (35-47); Hemoglobin 13.4 g/dL (12.0-16.0); Lymphocyte % 24.7 %; Mean Corpuscular HGB Conc 34 g/dL (31-36); Mean Corpuscular Hemoglobin 36 pg (27-31); Mean Corpuscular Volume 106 fL (80-97); Mean Platelet Volume 7.5 fL (7.4-10.4); Nucleated Red Blood Cells % 0.1; Platelet Count 245 10^3/uL (150-450); Red Blood Count 3.69 10^6 /uL (3.70-4.87); Red Cell Distribution Width 13 % (10-15); White Blood Count 8.5 10^3/uL (3.5-10.8)
[2019-03-23 11:15] LABS: BUN/Creatinine Ratio 13.2 (8-20); Calcium 8.9 mg/dL (8.6-10.3); EGFR African American 105.4 (>60); EGFR Non-African American 87.1 (>60); Magnesium 1.5 mg/dL (1.9-2.7); Potassium 4.6 mmol/L (3.5-5.0)
[2019-03-23] MEDS ORDERED: Sodium Chloride TAB* 1 GM PO SCH ×2 (11:31→18:00)
[2019-03-23] MEDS ORDERED: Magnesium Sulfate IV* 3 GM in NS 0.9% 100 ML* 100 ML IVPB ONE (11:45)
[2019-03-23 16:38] LABS: Urine Sodium Concentration 39 mmol/L
[2019-03-23] MEDS: oxyCODONE TAB* 5 MG TAB PO PRN (17:26)
[2019-03-23] MEDS: Enoxaparin(*) 40 MG/0.4 ML SYR SUBCUT SCH (17:27)
[2019-03-23 17:35] LABS: Urine Chloride Concentration 156 mmol/L
[2019-03-23 20:05] VITALS: BP 118/45
[2019-03-24] MEDS ORDERED: Sodium Chloride TAB* 1 GM PO SCH (09:00)
--- NOTE | 2019-03-24 13:47 | DS ---
CC: Dr. Stefanie Tay; Dr. Kriss Gibbons * DISCHARGE SUMMARY: DATE OF ADMISSION: 03/20/19 DATE OF DISCHARGE: 03/23/19 PRIMARY CARE PROVIDER: Dr. Stefanie Tay. MY ATTENDING WHILE IN THE HOSPITAL: Dr. Lyndsay Godinez.* (DICTATED BY RADHA ADAN) OUTPATIENT NEUROSURGEON: Dr. Kriss Gibbons. PRIMARY DISCHARGE DIAGNOSES: 1. Compression fracture of T12 and L1. 2. Constipation, resolved. 3. Hyponatremia. 4. Slightly elevated troponin due to demand ischemia. 5. Dehydration. 6. Urinary tract infection. SECONDARY DISCHARGE DIAGNOSES: 1. Erythrodermic psoriasis. 2. Cirrhosis. 3. Gastroesophageal reflux disease. 4. History of alcohol abuse, in remission. STUDIES DONE WHILE IN THE HOSPITAL: Abdomen and pelvis CT from 03/19/19 read as gallstones, distended gallbladder, mild gallbladder wall thickening raising possibility of acute cholecystitis. Findings consistent with cirrhosis, interval resolution of ascites, moderate to large amount of retained stool, new compression fractures at T12 and L1 vertebral bodies. Gallbladder ultrasound from 03/19/19 read as the distended gallbladder contains dependent gallstones. There is no gallbladder wall thickening or pericholecystic fluid. No intra or extrahepatic biliary duct dilatation identified. If there is suspicion for cholecystitis, HIDA scanning should be performed. Lumbar spine MRI from 03/19/19 read as acute T12 and L1 compression fractures resulting in 10% to 30% vertebral body height loss respectively. There is no significant bony retropulsion or paraspinal hematoma at either level. Generalized osteopenia. There is chronic compression deformity at L4. Lumbar spine x-ray standing from 03/21/19 read as compression fracture at L1 unchanged from recent MRI. EKG shows no ST segment elevation or depression. Tachycardia. No hypertrophy or enlargement. MEDICATIONS AT DISCHARGE: 1. Triamcinolone 1% one application topical b.i.d. 2. Zantac 300 mg p.o. daily. 3. Folic acid 1 mg p.o. daily. 4. Thiamine 100 mg p.o. daily. 5. Magnesium oxide 500 mg p.o. daily. 6. Potassium chloride 10 mEq p.o. daily. 7. Lactulose 15 mL p.o. b.i.d. 8. Baclofen 5 mg p.o. t.i.d. 9. Lidocaine patch 1 patch transdermal daily. 10. Senna 8.6 mg p.o. at bedtime as needed constipation. 11. Polyethylene glycol 17 g p.o. b.i.d. as needed for constipation. 12. Sodium chloride 1 g p.o. daily. 13. Cefuroxime 500 mg p.o. b.i.d. Medications discontinued at discharge: 1. Potassium chloride tablet 10 mEq p.o. b.i.d. 2. Oxycodone 2.5 mg p.o. q.4 hours as needed. 3. Furosemide 30 mg p.o. daily. 4. Spironolactone 100 mg p.o. daily. New medications at discharge: 1. Tylenol. 2. Lidocaine. 3. Potassium chloride. 4. Sodium chloride. 5. Cefuroxime. 6. Polyethylene glycol. HOSPITAL COURSE: This is a brief summary of the patient's presentation. For more details, please see the history and physical from this author on 03/20/19. In brief, the patient is a 63-year-old female with past medical history significant for the above, who presented to the emergency department after a 3- month worsening in her back pain after she had a fall in her bathroom. The patient had previously been admitted to this institution in December of this year due to lower extremity wound and concern for decompensated cirrhosis. The patient came to the emergency department after being started on oxycodone because she became severely constipated, which she also attributed to her potassium supplementation and other factors and in the emergency department was found to have severe abdominal and back pain as well as hyponatremia with sodium level initially of 123. The patient was admitted to the hospital and started with pain control and fitted for a TLSO. The patient was seen in consultation by Neurosurgery, who recommended TLSO brace for comfort and no other surgical intervention needed. The patient was treated aggressively with laxatives and a suppository and had several large bowel movements with resolution of her abdominal pain and significant decrease in her back pain. The patient appeared hypovolemic on admission to the hospital due to poor oral intake in the setting of high diuretic doses. The patient has no ascites on her CT scan as above. The patient was started on fluids and her sodium initially increased to 128; however, then decreased again to 124, increased again to 128 and then went back down to 125 on the day of discharge. The patient was initially given fluids and her fluids were stopped for unclear reasons and then they were started again. With the improvement of her sodium, the patient's fluids were again stopped and her sodium dropped again despite not being on diuretics. The patient initially had urine studies, which were equivocal, showing an osmolality of 235 and urine sodium concentration of 36. The patient on the second day of her hospitalization had had a Lazo inserted for acute urinary retention and on 03/22/19 had it removed. The patient at that time complained of burning with urination and a urinalysis was done, which showed interval development of nitrites and leukocyte esterase. The patient was started on antibiotics. Her urine eventually grew pansensitive E. coli. The patient's back pain improved. She did very well with physical therapy and she was very anxious for discharge on 03/23/19. The patient had no symptoms from her hyponatremia. The patient was very alert, very steady on her feet, had no dizziness, headaches, or other feelings of fatigue and was very anxious to go home. The patient had repeat urine studies, which showed a borderline high urine sodium concentration of 36 and a high osmolality of 566. Laboratory signs of the patient's cirrhosis had significantly decreased during the interval since her most recent hospitalization and she did not appear to develop any ascites from her fluids while in the hospital. The patient was in significant pain and was taking opiate pain medications. 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 The patient was started on sodium tablets and a fluid restriction, which the patient stated she understood. The patient was very anxious to be discharged from the hospital, felt back to her baseline and was stable and amenable for discharge on 03/23/19 with close followup with regards to her sodium. PHYSICAL EXAM ON THE DAY OF DISCHARGE: General: The patient is a 63-year-old female, who appears stated age, has erythrodermic psoriasis and is sitting in the bed, in no acute distress. Vital Signs: At the time of discharge, temperature 99.5, pulse rate 94, respiratory rate 22, oxygen 96% on room air. HEENT: Head normocephalic, atraumatic. Sclerae anicteric. No conjunctival injection. Nasal mucosa moist. Oral mucosa moist. No pharyngeal erythema, discharge, or exudate. Neck: Supple, nontender. No lymphadenopathy. No carotid bruits auscultated. No JVD. Cardiac: Regular rate and rhythm. No clicks, murmurs, gallops, or rubs. Pulses are 2+ in the bilateral dorsalis pedis, posterior tibialis, and radial areas. Respiratory: Clear to auscultation bilaterally. No wheezing, rales, or rhonchi. Good air exchange bilaterally. Abdomen: Soft, nontender, nondistended. Bowel sounds present and normoactive in all 4 quadrants. No hepatosplenomegaly. No abdominal bruits auscultated. No hepatojugular reflux. Negative fluid wave. No significant changes from admission exam. Genitourinary: No suprapubic or CVA tenderness. Skin: Widespread erythema with dry skin, bruising on the bilateral lower extremities, and no other significant abnormalities. Neuro: Cranial nerves II through XII intact. No focal deficits. Alert and oriented x3. DISCHARGE PLAN BY PROBLEM: 1. Hyponatremia. The patient has moderate hyponatremia with no apparent symptoms. The cause of the patient's hyponatremia on her admission was unclear, though was likely a combination of solute deficiency, diuretic use and poor oral intake as well as syndrome of inappropriate antidiuretic hormone secretion related to her persistent opiate use and pain. While in the hospital, the patient's solute deficiency was corrected with normal saline and her sodium persisted. The patient was anxious to go home. The patient was counseled on the importance of a close followup on this issue and the patient will follow up with her primary care provider on 03/27/19 as already scheduled. The patient was given a lab slip for repeat BMP on 03/26/19. The patient appears euvolemic with no peripheral edema or worsening ascites on the day of her admission. The signs of the patient's synthetic liver function have improved since her most recent hospitalization and she is abstinent from alcohol. Given the not advanced nature of the patient's cirrhosis, it is unlikely that her sodium would be low to this degree related to her cirrhosis. The patient's diuretics have been held at this point and she has been started on salt tabs. The patient should again follow up closely with her primary care provider as scheduled for assessment of the effect of salt supplementation on her cirrhosis and her hyponatremia. The patient has been counseled against using opiate pain medication. The patient's pain has decreased significantly and she is willing to give this a try. The patient throughout her hospitalization stated several times that she was taking hydrochlorothiazide despite it not being prescribed for her for several months. The patient was counseled again not to take any of her diuretics including Lasix, spironolactone, and hydrochlorothiazide for recurrent ascites. These may be introduced if the patient's sodium level will tolerate. The patient should follow up with her environmental services project manager for routine care with regards to her cirrhosis, which appears to be improving. 2. Compression fractures of her spine at T12 and L1. Continue TLSO brace. Pain management with Tylenol at this time. The patient should keep her dose under 3 g daily with her cirrhosis. The patient had only a slight AST elevation and elevated bilirubin on her admission to the hospital and her albumin was 3.8 during this admission, up from approximately 3 at her previous admission. 3. Urinary tract infection. The patient's urinary tract infection is catheter associated, but due to pansensitive E. coli, the patient will be continued on cefdinir for 6 more days at 500 mg twice daily. 4. Cirrhosis. The patient has no ascites at this time. The patient's markers of synthetic liver function are improving. The patient should continue to be abstinent from alcohol and follow up with her tug master to discuss routine care for her ascites. 5. Constipation. Laxatives as needed as above. The patient is no longer constipated. 6. History of alcohol abuse. Continue the patient's magnesium, thiamine, and folic acid. 7. Gastroesophageal reflux disease. Continue the patient's ranitidine. 8. Erythrodermic psoriasis. Continue the patient's moisturizer and triamcinolone as needed. DISPOSITION: Home. CONDITION: Stable. TIME SPENT: Approximately 75 minutes were spent on the discharge of this patient, 30 of which was spent [id number] with the patient obtaining history and physical and discussing treatment plan. This plan has been discussed with my attending, Dr. Lyndsay Godinez, and she is in agreement. RADHA ADAN [id number]/[facility] #: [id number] MICHAEL
== END 2019-03-23 20:10 | disposition home or self-care (01) | DRG 424 ==
LOC: ED 11:18 → MED 18:37 → OBSVTOIN 03-20 11:00
PROVIDERS: ADMIT Hospitalist; ATTEND Internal Medicine
PROC: 0T9B70Z Drainage of Bladder with Drainage Device, Via Natural or Artificial Opening (ICD-10-PCS; principal; 2019-03-21)
DX: E22.2 Syndrome of inappropriate secretion of antidiuretic hormone (principal); S32.019A Unspecified fracture of first lumbar vertebra, initial encounter for closed fracture; T83.511A Infection and inflammatory reaction due to indwelling urethral catheter, initial encounter; N39.0 Urinary tract infection, site not specified; S22.089A Unspecified fracture of T11-T12 vertebra, initial encounter for closed fracture; N17.9 Acute kidney failure, unspecified; I24.8 Other forms of acute ischemic heart disease; K80.80 Other cholelithiasis without obstruction; R33.9 Retention of urine, unspecified; B96.20 Unspecified Escherichia coli [E. coli] as the cause of diseases classified elsewhere; W19.XXXA Unspecified fall, initial encounter; L40.8 Other psoriasis; K21.9 Gastro-esophageal reflux disease without esophagitis; K59.00 Constipation, unspecified; G89.29 Other chronic pain; R07.9 Chest pain, unspecified; R51 Headache; E86.0 Dehydration; R00.0 Tachycardia, unspecified; T40.605A Adverse effect of unspecified narcotics, initial encounter; Y73.1 Therapeutic (nonsurgical) and rehabilitative gastroenterology and urology devices associated with adverse incidents; Y92.239 Unspecified place in hospital as the place of occurrence of the external cause; T50.2X5A Adverse effect of carbonic-anhydrase inhibitors, benzothiadiazides and other diuretics, initial encounter; K70.30 Alcoholic cirrhosis of liver without ascites; F41.9 Anxiety disorder, unspecified; F10.11 Alcohol abuse, in remission; Z82.49 Family history of ischemic heart disease and other diseases of the circulatory system; Z80.8 Family history of malignant neoplasm of other organs or systems; Z87.891 Personal history of nicotine dependence; Y92.002 Bathroom of unspecified non-institutional (private) residence as the place of occurrence of the external cause
CPT/HCPCS: 36415; 72100; 72146; 72148; 74177; 76705; 80048; 80053; 80061; 81003; 81015; 82436; 82533; 83735; 83935; 84300; 84443; 84484; 85025; 87077; 87086; 87186; 93005; 96361; 96372; 96374; 96375; 99284; A9270-GY; G0378; G8978-GP-CH; G8979-GP-CH; G8980-GP-CH; J0696; J1650; J2270; J3010; J3475; Q9967

== ENCOUNTER 2019-04-07 04:43 | Emergency (ER) | payer BC ==
--- NOTE | 2019-04-07 05:03 | ED ---
Shortness of Breath - HPI Summary HPI Summary: This patient is a 63 year old F BIBA via EMS to ED with a chief complaint of SOB since 0400 this morning. Patients oxygen saturation on room air was noted to be 77%. Patient has been feeling weak for the past week, worsening these past few days. Patient reports her appetite has been fine. Patients entire body is bright red, but she has a history of erythrodermic psoriasis. She states she has not been this red before though. The patient rates the pain 9/10 in severity. Symptoms aggravated by nothing. Symptoms alleviated by nothing. Patient denies cough. - History of Current Complaint Chief Complaint: EDShortnessOfBreath Hx Obtained From: Patient Onset/Duration: Gradual Onset, Lasting Hours - Since 0400, Still Present, Worse Since Timing: Constant Current Severity: Mild Dyspnea At: Rest Aggravating Factors: Nothing Alleviating Factors: Nothing Associated Signs & Symptoms: Negative - Cough - Allergy/Home Medications Allergies/Adverse Reactions: Allergies Allergy/AdvReac Type Severity Reaction Status Date / Time No Known Allergies Allergy Verified 03/19/19 11:25 PMH/Surg Hx/FS Hx/Imm Hx Endocrine/Hematology History: Denies: Hx Diabetes, Hx Thyroid Disease Cardiovascular History: Denies: Hx Hypertension, Hx Pacemaker/ICD Respiratory History: Denies: Hx Asthma, Hx Chronic Obstructive Pulmonary Disease (COPD) GI History: Reports: Hx Gastroesophageal Reflux Disease Denies: Hx Ulcer Sensory History: Reports: Hx Contacts or Glasses Denies: Hx Hearing Aid, Other Sensory Impairments Opthamlomology History: Reports: Hx Contacts or Glasses Denies: Other Sensory Impairments Psychiatric History: Reports: Hx Substance Abuse Denies: Hx Panic Disorder - Surgical History Surgery Procedure, Year, and Place: None Infectious Disease History: No Infectious Disease History: Denies: Hx Hepatitis, Hx Human Immunodeficiency Virus (HIV), Hx of Known/ Suspected MRSA, Traveled Outside the [place] in Last 30 Days - Family History Known Family History: Positive: Cardiac Disease - [place] - father, Other - [place] - mother - Social History Alcohol Use: None Hx Substance Use: No Substance Use Type: Reports: Marijuana Hx Tobacco Use: Yes Smoking Status (MU): Former Smoker Type: Cigarettes Review of Systems Positive: Shortness Of Breath. Negative: Cough Skin: Other - Bright red skin over entire body Positive: Weakness All Other Systems Reviewed And Are Negative: Yes Physical Exam Triage Information Reviewed: Yes Vital Signs On Initial Exam: Initial Vitals Temp Pulse Resp BP Pulse Ox 98.3 F 100 18 164/84 97 04/07/19 04:46 04/07/19 04:46 04/07/19 04:46 04/07/19 04:46 04/07/19 04:46 Vital Signs Reviewed: Yes Diagnostics - Vital Signs Vital Signs Temp Pulse Resp BP Pulse Ox 04/07/19 04:46 98.3 F 100 18 164/84 97 - Laboratory Lab Statement: Any lab studies that have been ordered have been reviewed, and results considered in the medical decision making process. Course/Dx - Course Course Of Treatment: This patient is a 63 year old F BIBA via EMS to ED with a chief complaint of worsening weakness since last week and SOB since 0400 this morning. Patient has a history of erythrodermic psoriasis and also presents with bright red skin all over her body. Discharge ED - Discharge Plan Referrals: Stefanie Tay MD [Primary Care Provider] - - Attestation Statements Document Initiated by Scribe: Yes Documenting Scribe: Edwin Smith Provider For Whom Scribe is Documenting (Include Credential): Keith Sosa MD Scribe Attestation: Edwin Mejía, scribed for Keith Sosa MD on 04/07/19 at 0459.
[2019-04-07] MEDS ORDERED: NS 0.9% 1000 ML** 2,000 ML IV ONE (05:04)
--- OUTSIDE RECORDS SUMMARY | 2019-04-07 05:14 | XMS REPORT | Summary of Care ---
:1955 Author Organization [facility] Address [address] [place] [address] Care Team Providers Name Role Phone Stefanie Tay Primary Care Provider Reason for Visit Reason Comments Hospital Follow Up [facility] 03-20-19 thru 03-23-19, Compression fx, constipation Encounter Details Date Type Department Care Team Description 03/27/2019 Office Visit [place] [facility] Stefanie Tay MD Back pain, unspecified back location, unspecified back pain laterality, unspecified chronicity (Primary Dx); Medicine [address] Alcoholic cirrhosis of liver with ascites (HCC); [address] [place] [address] Psoriasis; [place] [address] Hyponatremia; [phone] Hypomagnesemia; Erythroderma (secondary); Edema, unspecified type Allergies Active Allergy Reactions Severity Noted Date Comments Penicillins Other 2018 Has not been able to take since she was tx with it as a child, Has no reaction at all documented as of this encounter (statuses as of 03/27/2019) Medications Medication Sig Dispensed Refills Start Date [...] Active MG (LAX) Oral Tab mouth DAILY. Spironolactone 100 Take 1 Tab by 30 Tab 11 01/14/2019 Active MG Oral Tab mouth DAILY. Baclofen 5 MG Oral Take 5 mg [...] 20 MG Oral Tab by mouth DAILY. cefuroxime (CEFTIN) Take 250 mg 0 Active 250 MG Oral Tab by mouth TWICE DAILY. thiamine (VITAMIN Take 100 mg 0 03/27/2019 Discontinued B1) 100 MG Oral Tab by mouth DAILY. potassium chloride TAKE 1 TABLET 60 Tab 5 02/17/2019 03/27/2019 Discontinued (K-TAB) 10 MEQ Oral BY MOUTH Tab CR TWICE A DAY documented as of this encounter (statuses as of 03/27/2019) Active Problems Problem Noted Date Esophageal candidiasis 08/08/2018 Gastropathy 08/08/2018 Alcoholic hepatitis with ascites 10/01/2017 Overview: Ultrasound at [facility] 09/16 Psoriasis 09/04/2016 Overview: Followed by Dr Dr Lerma documented as of this encounter (statuses as of 03/27/2019) Resolved Problems Problem Noted Date Resolved Date Elevated LFTs 09/04/2016 08/08/2018 documented as of this encounter (statuses as of 03/27/2019) Immunizations Name Administration Dates Next Due Influenza [...] Sign Reading Time Taken Comments Blood Pressure - - Pulse 120 03/27/2019 2:35 PM EDT Temperature 37.4 03/27/2019 2:35 PM EDT C (99.3 F) Respiratory Rate - - Oxygen Saturation 100% 03/27/2019 2:35 PM EDT Inhaled Oxygen Concentration - - Weight 59.9 kg (132 lb) 03/27/2019 2:35 PM EDT refused Height - - Body Mass Index 23.38 03/13/2019 12:45 PM EDT documented in this encounter Patient Instructions Patient InstructionsStefanie Tay MD - 03/27/2019 2:40 PM EDTPlan 1. For the back pain - Wear TLSO - use as little narcotic pain medication as you can - It constipates 2. For the swelling - watch the weight - If the weight and pedal edema are increased take the furosemide/ spironolactone ( diuretics) - if you are dry and weight is down - hold off on the diuretic - 3. For constipation - continue Lactulose 4. For fluid adjustment - Take half the furosemide / Spironolactone 25 mg - For now - If you get too dry cut out ; If going up in weight increase them documented in this encounter Progress Notes Stefanie Tay MD - 03/27/2019 2:40 PM EDT TCM Statement. Review of the hospitalization: I am seeing for transition of care following hospitalization. The date of discharge was: 03/23/19 The discharge diagnosis was Low back pain / compression fracture / . I reviewed the discharge summary, discharge instructions, and pertinent additional documentation obtained during hospitalization. I reconciled the medications. I also reviewed the Transition of Care documentation done by staff. The tests that were not available at the time of discharge were reviewed. Coordination of care. (delete one and this phrase) - I am satisfied that appropriate referrals are in place to deal with the problems identified during hospitalization, and that the patient has adequate community resources and support in place. - Additional testing related to hospitilization was requested today: yes See orders. I confirmed the patient's understanding of the diagnosis and plan of care. Specific education that was provided today: Patient Instructions Plan 1. For the back pain - Wear TLSO - use as little narcotic pain medication as you can - It constipates 2. For the swelling - watch the weight - If the weight and pedal edema are increased take the furosemide/ spironolactone ( diuretics) - if you are dry and weight is down - hold off on the diuretic - 3. For constipation - continue Lactulose 4. For fluid adjustment - Take half the furosemide / Spironolactone 25 mg - For now - If you get too dry cut out ; If going up in weight cut them out The current and discharge medications were reconciled by me, today The source document was hospital discharge summary NAME:Michelle Dupont 1955: 1955 ENC Date: 03/27/2019 CC: Chief Complaint Patient presents with Hospital Follow Up [facility] 03-20-19 thru 03-23-19, Compression fx, constipation Michelle Dupont is a 63-y.o. female accompanied by spouse Very complex cirrhotic With severe psoriasis and cirrhoisis of the liver (sec to alcohol abuse) With all the complications of that condition - Patient improved after cessation of alcohol last fall but had a relapsesof drinking alcohol this spring - admitted at [facility] 01/17 for liver decompensation/ cellulitis . Also wound on lower extremeties followed by Dr Telles 10/18 Last visit patient presented with severe low back pain and small amount of narcotic pain medication was made available but that was not enough to help with problem. Patient presented and admitted to [facility] most recently with unremitting back pain and constipation Work up showed: compression fracture of T12/ L1. Sodium was 123 / no ascites noted on imaging / troponin elevated thought secondary to demand ischemia / UTI - / gallbladder stones but no acute cholelitiasis. 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- ( high urinary sodium levels ) / she was felt to have better parameters related to liver failure She was seen by neurosurgery for compression fracture of her back and a brace was advised - She was discharged on Lasix and spironolactone/ lactulose - ( IVF for hyponatremia and dehyrdration - Patient continues with back pain / weakness Not sure what to do about the reaccumulated pedal edema and swelling of the hands ( left more than right ) Constipation better ( on lactulose) Not sure what to eat - ( high protein diet recommended ) Current Outpatient Medications Medication Sig Baclofen 5 MG Oral Tab Take 5 mg by mouth THREE TIMES DAILY. cefuroxime (CEFTIN) 250 MG Oral Tab Take 250 mg by mouth TWICE DAILY. foliC acid 1 MG Oral Tab [...] (back pain). Max Daily Amount: 5 mg. ranitidine (ZANTAC) 300 MG Oral Tab Take 300 mg by mouth DAILY. spironolactone (ALDACTONE) 25 MG Oral Tab Take 1 Tab by mouth DAILY. Spironolactone 100 MG Oral Tab Take 1 Tab by mouth DAILY. triamcinolone (KENALOG,ARISTOCORT) 0.1 % Apply externally Cream by Topical route TWICE DAILY. No current facility-administered medications for this visit. Patient Active Problem List Diagnosis Date Noted Esophageal candidiasis (HCC) 08/08/2018 Gastropathy 08/08/2018 Alcoholic hepatitis with ascites 10/01/2017 Ultrasound at [facility] 09/16 Psoriasis 09/04/[address] Lerma No family history on file. No cardiopulmonary symptoms No upper or lower GI complaints No urinary tract symptoms. No bruising/ bleeding. No neurological complaints . No insomnia.+ . Social History Tobacco Use Smoking status: Former Smoker Smokeless tobacco: Never Used Substance Use Topics Alcohol use: Yes Drug use: No OBJECTIVE: examined sitting up - would not undress or be weighed Pulse (!) 120 | Temp 99.3 F (37.4 C) | Wt 132 lb (59.9 kg) Comment: refused | SpO2 100% |BMI 23.38 kg/m . Heent Sparse hair Lungs Clear to base CV rrr Abd soft, nontender, Skin diffusely red / scaly - hair loss Ext 3+ edema; Neuro: intellect intact ; In a wheelchair No flap A/P ICD-9-CM ICD-10-CM 1. Back pain, unspecified back location, unspecified back pain laterality, unspecified chronicity 724.5 M54.9 2. Alcoholic cirrhosis of liver with ascites (HCC) 571.2 K70.31 BASIC METABOLIC PANEL MAGNESIUM LEVEL BASIC METABOLIC PANEL MAGNESIUM LEVEL 3. Psoriasis 696.1 L40.9 4. Hyponatremia 276.1 E87.1 5. Hypomagnesemia 275.2 E83.42 6. Erythroderma (secondary) 695.9 L53.9 7. Edema, unspecified type 782.3 R60.9 Patient could not tolerate blood draw or blood pressure taken Weight initially refused but she agreed after we discussed how important disucssed adjustment of diuretics with patient at length and tried to educate to adjust Short interval Follow up - will be hard to evaluate and adjust diuretic as finely as need be as an outpt but will try Patient Instructions Plan 1. For the back pain - Wear TLSO - use as little narcotic pain medication as you can - It constipates 2. For the swelling - watch the weight - If the weight and pedal edema are increased take the furosemide/ spironolactone ( diuretics) - if you are dry and weight is down - hold off on the diuretic - 3. For constipation - continue Lactulose 4. For fluid adjustment - Take half the furosemide / Spironolactone 25 mg - For now - If you get too dry cut out ; If going up in weight cut them out AUTHOR: Stefanie Tay MD 19:10 03/27/2019 documented in this encounter Plan of Treatment Date Type Specialty Care Team Description 04/04/2019 Office Visit Internal Medicine Stefanie Tay MD [address] [place] [address] [phone] 04/14/2019 Office Visit Gastroenterology Marielle Dubon, [place] [address] [place] [address] [phone] Name Type Priority Associated Diagnoses Order Schedule BASIC METABOLIC PANEL Lab Routine Alcoholic cirrhosis of Expected: 2018 liver with ascites (HCC) (Approximate), Expires: 09/23/2019 MAGNESIUM LEVEL Lab Routine Alcoholic cirrhosis of Expected: 03/27/2019 liver with ascites (HCC) (Approximate), Expires: 09/23/2019 Health Maintenance Due Date Last Done Comments [...] an individualized treatment (blood pressure) goal for Michellemelinda Dupont: Displayed above (on the left) is your goal for blood pressure control. Your most recent blood pressure is also shown above, on the right. You should try to achieve blood pressures that are lower than your goal listed above (on the left). Take all prescribed medications as directed Self-management Stefanie Viera MD Note: This is an individualized self-management goal for Michellemelinda Dupont: Please take all prescribed medications as [...] filedocumented in this encounter Visit Diagnoses Diagnosis Back pain, unspecified back location, unspecified back pain laterality, unspecified chronicity - Primary Alcoholic cirrhosis of liver with ascites (HCC) Alcoholic cirrhosis of liver Psoriasis Other psoriasis Hyponatremia Hyposmolality and/or hyponatremia Hypomagnesemia Disorders of magnesium metabolism Erythroderma (secondary) Unspecified erythematous condition Edema, unspecified type documented in this encounter Insurance Payer Benefit Plan / Subscriber ID Effective Dates Phone Address Type Group [employer] xxxxxxxxxxxx 2017-Present [employer] documented as of this encounter"
--- OUTSIDE RECORDS SUMMARY | 2019-04-07 05:14 | XMS REPORT | Summary of Care ---
:1955 Author Organization [facility] Address [address] [place] [address] Care Team Providers Name Role Phone Stefanie Tay Primary Care Provider Reason for Referral Medication Prior Authorization (Routine) Status Reason Specialty Diagnoses / Referred By Referred To Procedures Contact Contact Pending Review Diagnoses Cirrhosis of liver with ascites, unspecified hepatic cirrhosis type (HCC) Stefanie Tay MD [address] [place], [place] [id number] Reason for Visit Reason Comments Follow Up back pain which is better. cirrhosis. Continues with ascites. Fluid retention biateral legs. Form Completion disability Derm Problem large blood blister right calf Encounter Details Date Type Department Care Team Description 04/04/2019 Office Visit [place] [facility] Stefanie Tay MD Alcoholic cirrhosis of liver with ascites (HCC) (Primary Dx); Medicine [address] [facility] Hyponatremia; [address] [place] [address] Psoriasis; [place] [address] Hypomagnesemia; [phone] Back pain, unspecified back location, unspecified back pain laterality, unspecified chronicity; Erythroderma (secondary); Pedal edema; Cirrhosis of liver with ascites, unspecified hepatic cirrhosis type ( HCC) Allergies Active Allergy Reactions Severity Noted Date Comments Penicillins Other 2018 Has not been able to take since she was tx with it as a child, Has no reaction at all documented as of this encounter (statuses as of 04/04/2019) Medications Medication Sig Dispensed Refills Start Date End Date Status triamcinolone by Topical 0 Active (KENALOG,ARISTOCORT route TWICE ) 0.1 % Apply DAILY. externally Cream Baclofen 5 MG Oral Take 5 mg by 60 Tab 0 03/06/2019 Active TabIndications: mouth THREE Cirrhosis of liver TIMES DAILY. with ascites, unspecified hepatic cirrhosis type (HCC) lactulose Take 15 mL 900 mL 0 03/13/2019 Active (CEPHULAC) 10 by mouth GM/15ML Oral TWICE DAILY. Solution spironolactone Take 1 Tab 30 Tab 0 03/13/2019 Active (ALDACTONE) 25 MG by mouth Oral Tab DAILY. Spironolactone 100 TAKE 1 90 Tab 0 03/28/2019 Active MG Oral Tab TABLET BY MOUTH EVERY DAY ranitidine (ZANTAC) Take 300 mg 90 Tab 1 04/01/2019 Active 300 MG Oral by mouth TabIndications: DAILY. Esophageal candidiasis (HCC), Gastropathy OXYcodone Take 0.5 20 Tab 0 04/04/2019 Active (OXY-IR,OXY-FAST) 5 Tabs by MG Oral mouth TWO TabIndications: TIMES DAILY Cirrhosis of liver NEEDED with ascites, (back pain). unspecified hepatic Max Daily cirrhosis type Amount: 5 (HCC) mg. foliC acid 1 MG Take 1 mg by 0 Discontinued Oral Tab mouth DAILY. 9 Magnesium Oxide 500 Take 1 Tab 0 Discontinued MG (LAX) Oral Tab by mouth 9 DAILY. OXYcodone Take 0.5 20 Tab 0 03/06/2019 Discontinued (OXY-IR,OXY-FAST) 5 Tabs by 9 (Reorder) MG Oral mouth TWO TabIndications: TIMES DAILY Cirrhosis of liver NEEDED with ascites, (back pain). unspecified hepatic Max Daily cirrhosis type Amount: 5 (HCC) mg. furosemide (LASIX) Take 1.5 45 Tab 0 03/13/2019 Discontinued 20 MG Oral Tab Tabs by 9 mouth DAILY. cefuroxime (CEFTIN) Take 250 mg 0 Discontinued 250 MG Oral Tab by mouth 9 TWICE DAILY. documented as of this encounter (statuses as of 04/04/2019) Active Problems Problem Noted Date Esophageal candidiasis 08/08/2018 Gastropathy 08/08/2018 Alcoholic hepatitis with ascites 10/01/2017 Overview: Ultrasound at [facility] 09/16 Psoriasis 09/04/2016 Overview: Followed by Dr Dr Lerma documented as of this encounter (statuses as of 04/04/2019) Resolved Problems Problem Noted Date Resolved Date Elevated LFTs 09/04/2016 08/08/2018 documented as of this encounter (statuses as of 04/04/2019) Immunizations Name Administration Dates Next Due Influenza [...] Sign Reading Time Taken Comments Blood Pressure 148/78 04/04/2019 2:30 PM EDT Pulse 110 04/04/2019 2:30 PM EDT Temperature 36.7 04/04/2019 2:30 PM EDT C (98 F) Respiratory Rate - - Oxygen Saturation 98% 04/04/2019 2:30 PM EDT Inhaled Oxygen Concentration - - Weight 62.1 kg (137 lb) 04/04/2019 2:30 PM EDT Height 160 cm (5' 3") 04/04/2019 2:30 PM EDT Body Mass Index 24.27 04/04/2019 2:30 PM EDT documented in this encounter Patient Instructions Patient InstructionsStefanie Tay MD - 04/04/2019 2:20 PM EDTPlan We will get back on furosemide ( lasix ) and then cut back when fluid is getting better - 30 mgnext 2 days then down to 20 mg - If the fluid is good cut back to 10 mg When you take furosemide take also potassium ( 10 meq) with furosemide Continue spironolactone 50 mg - Check blood work Sunday - Office visit Tu - dont drink too much "free" water - Gatorade / broth / gingerale - in limited is ok Any time you feel worse to the ERElectronically signed by Stefanie Tay MD at 3:45 PM EDT documented in this encounter Progress Notes Stefanie Tay MD - 04/04/2019 2:20 PM EDT NAME:Michelle Dupont 1955: 1955 ENC Date: 04/04/2019 CC: Chief Complaint Patient presents with Follow Up back pain which is better. cirrhosis. Continues with ascites. Fluid retention biateral legs. Form Completion disability Derm Problem large blood blister right calf Michelle Dupont is a 63-y.o. female accompanied by spouse Very complex cirrhotic patient and also severe psoriasis with erythroderma Recently situation complicated by a relapse in alcohol use ( in the spring) and then severe back pain - admitted at [facility] 01/17 for liver decompensation/ cellulitis and back pain Patient having metabolic issues of hyponatremia / kalemia / magnesemia- secondary to liver disease and diuretics In response to last blood work - patient was asked to stop loop diuretic and continue spinolactone - She is taking sprionllactone 25 mg only . Finds that she is retaining fludi in the last 2 days and has developed a "blood blister" on the leftcalf Wound on the right leg - is healing but is bulging out with volume increase Puffiness of the hands are better - Also having zings of the both feet - Taking lactulose / not as constipated but has foot pain / less back pain Current Outpatient Medications Medication Sig Baclofen 5 MG Oral Tab Take 5 mg by mouth THREE TIMES DAILY. lactulose (CEPHULAC) 10 GM/15ML Oral Solution Take 15 mL by mouth TWICE DAILY. OXYcodone (OXY-IR,OXY-FAST) 5 MG Oral Tab Take 0.5 Tabs by mouth TWO TIMES DAILY NEEDED (back pain). Max Daily Amount: 5 mg. ranitidine (ZANTAC) 300 MG Oral Tab Take 300 mg by mouth DAILY. spironolactone (ALDACTONE) 25 MG Oral Tab Take 1 Tab by mouth DAILY. Spironolactone 100 MG Oral Tab TAKE 1 TABLET BY MOUTH EVERY DAY triamcinolone (KENALOG,ARISTOCORT) 0.1 % Apply externally Cream by Topical route TWICE DAILY. No current facility-administered medications for this visit. Patient Active Problem List Diagnosis Date Noted Esophageal candidiasis (HCC) 08/08/2018 Gastropathy 08/08/2018 Alcoholic hepatitis with ascites 10/01/2017 Ultrasound at [facility] 09/16 Psoriasis 09/04/[address] Lerma History reviewed. No pertinent family history. No cardiopulmonary symptoms No upper or lower GI complaints No urinary tract symptoms. No bruising/ bleeding. No neurological complaints . No insomnia.+ . Social History Tobacco Use Smoking status: Former Smoker Smokeless tobacco: Never Used Substance Use Topics Alcohol use: Yes Drug use: No Results for orders placed or performed in visit on 04/01/19 CBC WITH DIFFERENTIAL Result Value Ref Range WBC Count 9.84 3.98 - 10.04 K/uL RBC Count 3.67 (L) 3.93 - 5.22 M/UL Hemoglobin 13.0 11.2 - 15.7 g/dL Hematocrit 37.8 34.1 - 44.9 % MCV 103.0 (H) 79.4 - 94.8 FL MCH 35.4 (H) 25.6 - 32.2 PG MCHC 34.4 32.2 - 35.5 g/dL Platelet Count 235 182 - 369 K/uL MPV 10.1 9.4 - 12.3 FL RDW 13.3 11.7 - 14.4 % Neutrophil % 61.6 34.0 - 71.1 % Lymphocyte % 18.9 (L) 19.3 - 51.7 % Monocyte % 13.7 (H) 4.7 - 12.5 % Eosinophil % 3.4 0.7 - 5.8 % Basophil % 0.5 0.1 - 1.2 % nRBC % 0.0 0.0 - 0.2 % Neutrophil # 6.06 1.56 - 6.13 K/UL Lymphocyte # 1.86 1.18 - 3.74 K/UL Monocyte # 1.35 (H) 0.24 - 0.86 K/UL Eosinophil # 0.33 0.04 - 0.36 K/UL Basophil # 0.05 0.01 - 0.08 K/UL Immature Gran % 1.9 (H) 0.0 - 0.4 % Immature Gran # 0.19 (H) 0.00 - 0.03 K/uL NRBC # 0.00 0.00 - 0.12 K/uL Lab Results Component Value Date NA 126 (L) 04/01/2019 K 3.1 (L) 04/01/2019 CL 90 (L) 04/01/2019 CO2 23 04/01/2019 GLUCOSE 100 (H) 04/01/2019 BUN 15 04/01/2019 CREATININE 0.9 04/01/2019 CALCIUM 9.0 04/01/2019 EGFR >60 04/01/2019 OBJECTIVE: Looks sick BP 148/78 | Pulse 110 | Temp 98 F (36.7 C) | Ht 5' 3" (1.6 m) | Wt 137 lb (62.1 kg) | SpO2 98% | BMI 24.27 kg/m . Heent Sparse hair - Diffuse scale on on sclap and hairline Lungs Clear CV rrr Abd soft, nontender, no organomegaly Ext diffuse redness of both legs- and diffusely edematous; no open Lesions but redness and scale ; Neuro: intellect intact ; motor including gait unremarkable A/P ICD-9-CM ICD-10-CM 1. Alcoholic cirrhosis of liver with ascites (HCC) 571.2 K70.31 BASIC METABOLIC PANEL MAGNESIUM LEVEL 2. Hyponatremia 276.1 E87.1 BASIC METABOLIC PANEL 3. Psoriasis 696.1 L40.9 4. Hypomagnesemia 275.2 E83.42 MAGNESIUM LEVEL 5. Back pain, unspecified back location, unspecified back pain laterality, unspecified chronicity 724.5 M54.9 6. Erythroderma (secondary) 695.9 L53.9 7. Pedal edema 782.3 R60.0 8. Cirrhosis of liver with ascites, unspecified hepatic cirrhosis type (HCC) 571.5 K74.60 OXYcodone (OXY-IR,OXY-FAST) 5 MG Oral Tab R18.8 empasized that patient is at the edge and may better be served by hospital level care since volume overloaded and hyponatremic/ hypokalemic - the need for diruetics and the metabolic status are diametrically at odds atient is adamant that she does not want to go through the ER but I cannot arrange otherwise- I will try to continue to support outpt but she needs closer observation that possible outpt- Told if any worse to got to the ER for more help Patient Instructions Plan We will get back on furosemide ( lasix ) and then cut back when fluid is getting better - 30 mgnext 2 days then down to 20 mg - If the fluid is good cut back to 10 mg When you take furosemide take also potassium ( 10 meq) with furosemide Continue spironolactone 50 mg - Check blood work Sunday - Office visit - dont drink too much "free" water - Gatorade / broth / gingerale - in limited is ok Any time you feel worse to the ER AUTHOR: Stefanie Tay MD 15:56 04/04/2019 documented in this encounter Plan of Treatment Date Type Specialty Care Team Description 04/11/2019 Lab Internal Medicine 04/14/2019 Office Visit Gastroenterology Marielle Dubon, [address] [address] [phone] Name Type Priority Associated Diagnoses Order Schedule BASIC METABOLIC PANEL Lab Routine Hyponatremia Expected: 04/04/2019 Alcoholic cirrhosis of (Approximate), Expires: liver with ascites (HCC) 10/01/2019 MAGNESIUM LEVEL Lab Routine Hypomagnesemia Expected: 04/04/2019 Alcoholic cirrhosis of (Approximate), Expires: liver with ascites (HCC) 10/01/2019 Health Maintenance Due Date Last Done Comments [...] Type Problems Progress Blood Pressure Blood Pressure 148/78 No Maggi, < 150/90 (04/04/2019 MD Stefanie 2:30 PM EDT) Note: This is an individualized treatment (blood pressure) goal for Michelle Gironjovita: Displayed above (on the left) is your goal for blood pressure control. Your most recent blood pressure is also shown above, on the right. You should try to achieve blood pressures that are lower than your goal listed above (on the left). Take all prescribed medications as directed Self-management Stefanei Viera MD Note: This is an individualized [...] (HCC) - Primary Alcoholic cirrhosis of liver Hyponatremia Hyposmolality and/or hyponatremia Psoriasis Other psoriasis Hypomagnesemia Disorders of magnesium metabolism Back pain, unspecified back location, unspecified back pain laterality, unspecified chronicity Erythroderma (secondary) Unspecified erythematous condition Pedal edema Edema Cirrhosis of liver with ascites, unspecified hepatic cirrhosis type (HCC) documented in this encounter Insurance Payer Benefit Plan / Subscriber ID Effective Dates Phone Address Type Group [employer] xxxxxxxxxxxx 2017-Present [employer] documented as of this encounter
--- NOTE | 2019-04-07 05:19 | ED ---
Complex/Multi-Sys Presentation - HPI Summary HPI Summary: This patient is a 63 year old F BIBA via EMS to ED with a chief complaint of worsening weakness since 0400 this morning. Patients oxygen saturation on room air was noted to be 77%. Patient has been feeling weak for the past week, worsening these past few days. Patient reports her appetite has been fine. Patients entire body is bright red. She has a history of erythrodermic psoriasis, but she states she has not been this red before though. The patient rates the pain 9/10 in severity. Symptoms aggravated by nothing. Symptoms alleviated by nothing. Patient denies shortness of breath and cough. PMHx of cirrhosis. - History Of Current Complaint Chief Complaint: EDShortnessOfBreath Time Seen by Provider: 04/07/19 04:54 Hx Obtained From: Patient Onset/Duration: Gradual Onset, Still Present, Worse Since Timing: Constant Severity Currently: Moderate Severity Initially: Severe Location: Pain At: - Diffuse skin Aggravating Factor(s): Nothing Alleviating Factor(s): Nothing Associated Signs And Symptoms: Positive: Weakness, Other - Bright red skin. Negative: SOB, Cough - Allergies/Home Medications Allergies/Adverse Reactions: Allergies Allergy/AdvReac Type Severity Reaction Status Date / Time No Known Allergies Allergy Verified 03/19/19 11:25 PMH/Surg Hx/FS Hx/Imm Hx Endocrine/Hematology History: Denies: Hx Diabetes, Hx Thyroid Disease Cardiovascular History: Denies: Hx Hypertension, Hx Pacemaker/ICD Respiratory History: Denies: Hx Asthma, Hx Chronic Obstructive Pulmonary Disease (COPD) GI History: Reports: Hx Cirrhosis, Hx Gastroesophageal Reflux Disease Denies: Hx Ulcer Sensory History: Reports: Hx Contacts or Glasses Denies: Hx Hearing Aid, Other Sensory Impairments Opthamlomology History: Reports: Hx Contacts or Glasses Denies: Other Sensory Impairments Psychiatric History: Reports: Hx Substance Abuse Denies: Hx Panic Disorder - Surgical History Surgery Procedure, Year, and Place: None Infectious Disease History: No Infectious Disease History: Denies: Hx Hepatitis, Hx Human Immunodeficiency Virus (HIV), Hx of Known/ Suspected MRSA, Traveled Outside the [place] in Last 30 Days - Family History Known Family History: Positive: Cardiac Disease - [place] - father, Other - [place] - mother - Social History Alcohol Use: None Hx Substance Use: No Substance Use Type: Reports: Marijuana Hx Tobacco Use: Yes Smoking Status (MU): Former Smoker Type: Cigarettes Review of Systems Negative: Shortness Of Breath, Cough Skin: Other - Bright red skin over entire body Positive: Weakness All Other Systems Reviewed And Are Negative: Yes Physical Exam - Summary Physical Exam Summary: Appearance: Woman lying in stretcher who appears acutely ill. Skin: From neck down, her skin is diffusely bright red with a great deal of superficial exfoliation. Eyes: sclera anicteric, no conjunctival pallor ENT: mucous membranes moist, pharynx appears normal Neck: Supple, nontender Respiratory: Tachypneic but denies feeling short of breath. Lung sounds are clear. Cardiovascular: Normal S1, S2. No murmurs. Normal distal pulses in tibial and radial bilaterally. Abdomen: Protuberant, likely with some ascites, but nontender and not tense. Musculoskeletal: Normal, Strength/ROM Intact Neurological: A&Ox3, awake and alert, mentation is normal, speech is fluent and appropriate Psychiatric: affect is normal, does not appear anxious or depressed Triage Information Reviewed: Yes Vital Signs On Initial Exam: Initial Vitals Temp Pulse Resp BP Pulse Ox 98.3 F 100 18 164/84 97 04/07/19 04:46 04/07/19 04:46 04/07/19 04:46 04/07/19 04:46 04/07/19 04:46 Vital Signs Reviewed: Yes Procedures - Sedation Patient Received Moderate/Deep Sedation with Procedure: No Diagnostics - Vital Signs Vital Signs Temp Pulse Resp BP Pulse Ox 04/07/19 04:46 98.3 F 100 18 164/84 97 - Laboratory Lab Statement: Any lab studies that have been ordered have been reviewed, and results considered in the medical decision making process. - EKG 0450 Cardiac Rate: NL - 99 BPM EKG Rhythm: Sinus Rhythm ST Segment: Normal Ectopy: None Summary of EKG Findings: NSR at 99 BPM, P waves, QRS complex, and T waves are within normal limits, T waves and intervals are normal, no ischemic changes. This is a normal EKG. Dr. Sosa has reviewed and interpreted this EKG. Complex Multi-Symp Course/Dx Course Of Treatment: This patient is a 63 year old F BIBA via EMS to ED with a chief complaint of worsening weakness since last week worsening this morning. Patient has a history of erythrodermic psoriasis and also presents with bright red skin all over her body. EKG at 0450 revealed NSR at 99 BPM, P waves, QRS complex, and T waves are within normal limits, T waves and intervals are normal , no ischemic changes. This is a normal EKG. In the ED course, patient received fluids. At this point the etiology of her weakness is unclear, but she appears quite ill and does not appear to have decompensation of her cirrhosis, and the condition of her skin is quite alarming. Review of recent admission records are somewhat vague on the extent of her skin condition at that time, but the patient is quite clear that her skin has worsened markedly over the past week, so at this point I have to assume she is suffering from a flare of erythrodermic psoriasis and should be transferred to a tertiary care center with burn experience. Labs at this time are still pending. Discussed patient case with [facility] who autoaccepted the patient for transfer. Patient will be transferred with dx of erythrodermic psoriasis and generalized weakness. - Diagnoses Provider Diagnoses: Generalized weakness, Erythrodermic psoriasis - Physician Notifications Discussed Care Of Patient With: [facility] Time Discussed With Above Provider: 06:21 Instructed by Provider To: Transfer - Discussed patient case with [facility], who auto-accepted the patient for transfer to [place] ED. - Critical Care Time Critical Care Time: 30-74 min Discharge ED - Sign-Out/Discharge Documenting (check all that apply): Patient Departure - Transfer - Discharge Plan Condition: Fair Disposition: TRANS HIGHER LVL OF CARE FAC Referrals: Stefanie Tay MD [Primary Care Provider] - - Billing Disposition and Condition Condition: FAIR Disposition: Trans Higher Lvl of Care Fac - Attestation Statements Document Initiated by Oscar: Yes Documenting Scribe: Edwin Smith Provider For Whom Oscar is Documenting (Include Credential): Keith Sosa MD Scribyennifer Attestation: I, Edwin Smith, scribed for Keith Sosa MD on 04/07/19 at 0640. Scribe Documentation Reviewed: Yes Provider Attestation: The documentation as recorded by the Edwin jenkins accurately reflects the service I personally performed and the decisions made by me, Keith Sosa MD Status of Scribe Document: Viewed
[2019-04-07] MEDS ORDERED: Morphine 4 MG/ML VIAL (1 ml) 4 MG/ML VIAL IV PRN (06:44)
[2019-04-07 07:12] LABS: Hematocrit 37 % (35-47); Hemoglobin 13.1 g/dL (12.0-16.0); Mean Corpuscular HGB Conc 35 g/dL (31-36); Mean Corpuscular Hemoglobin 36 pg (27-31); Mean Corpuscular Volume 102 fL (80-97); Mean Platelet Volume 7.2 fL (7.4-10.4); Platelet Count 307 10^3/uL (150-450); Red Blood Count 3.64 10^6 /uL (3.70-4.87); Red Cell Distribution Width 14 % (10-15); White Blood Count 13.2 10^3/uL (3.5-10.8)
[2019-04-07 07:21] VITALS: BP 160/72
[2019-04-07 07:29] LABS: Albumin 3.1 g/dL (3.2-5.2); Albumin/Globulin Ratio 1.3 (1-3); BUN/Creatinine Ratio 13.1 (8-20); EGFR African American 35.4 (>60); EGFR Non-African American 29.3 (>60); Globulin 2.4 g/dL (2-4); Total Bilirubin 2.2 mg/dL (0.2-1.0); Total Protein 5.5 g/dL (6.4-8.9)
[2019-04-07 07:31] LABS: Troponin I 0.03 ng/mL (<0.04)
[2019-04-07 07:33] LABS: Potassium 5.5 mmol/L (3.5-5.0)
[2019-04-07 07:45] LABS: ABS Basophils 0.1 10^3/ul (0-0.2); ABS Eosinophils 0.4 10^3/ul (0-0.6); ABS Lymphocytes 1.6 10^3/ul (1.0-4.8); ABS Monocytes 1.9 10^3/ul (0-0.8); ABS Neutrophils 9.2 10^3/ul (1.5-7.7); Eosinophil % 2.9 %; Lymphocyte % 12.4 %; Nucleated Red Blood Cells % 0.1
[2019-04-07] MEDS ORDERED: Morphine 4 MG/ML VIAL (1 ml) 4 MG/ML VIAL IV ONE (08:00)
== END 2019-04-07 07:43 | disposition short-term general hospital (02) ==
LOC: ED 04:43
DX: R53.1 Weakness (principal); L40.8 Other psoriasis; K21.9 Gastro-esophageal reflux disease without esophagitis; Z87.891 Personal history of nicotine dependence; Z79.899 Other long term (current) drug therapy
CPT/HCPCS: 36415; 71045; 80053; 82140; 82550; 83880; 84484; 85025; 87040; 93005; 96374; 96376; 99285; J2270